=== PATIENT | female | born 1950 | race Caucasian/White ===

== ENCOUNTER 2016-07-06 10:20 | Outpatient (RCR) | payer MEDICARE ==
--- OUTSIDE RECORDS SUMMARY | 2016-05-30 09:17 | XMS REPORT | Continuity of Care Document ---
Author Author [facility] Organization [facility] Address Unknown Phone Unavailable Care Team Providers Care Business Database Analyst Name Role Phone JARRELL COHEN DO PCP Insurance Providers Payer Name Policy Number Subscriber Name Relationship [employer] Gold Choice [id number] Shaji Munoz 18 Self / Same As Patient Advance Directives Directive Response Recorded Date/Time Advance Directives No 06/30/15 4:50pm Health Care Power of Grinder Operator Surface Tool No 06/30/15 4:50pm Organ Donor No 06/30/15 4:50pm Problems Active Problems Medical Problem Onset Date Status Breast cancer, left breast Unknown Acute Medications Current Home Medications Medication Dose Units Route Directions Days/Qty Instructions Start Date Levothyroxine Sodium (Levothroid) 125 Mcg 125 Mcg Oral Daily Omeprazole 20 Mg 20 Mg Oral Bedtime 06/28/15 Hydrocodone/Acetaminophen 1 Each 1 Each Oral Every 4HRS as needed for Pain 30 07/02/15 Past Home Medications Medication Directions Ordered Status Fluticasone/Salmeterol 1 Each Disk.w.dev, 0 Inhalation Twice A Day 12/15/14 Discontinued Social History Social History Problem Response Recorded Date/Time Alcohol Use Denies Use 06/30/2015 4:50pm Recreational Drug Use No 06/30/2015 4:50pm Recent Foreign Travel N [place] 04/13/2016 9:53am Sexually Transmitted Disease No 06/30/2015 4:50pm HIV/AIDS No 06/30/2015 4:50pm Do you dip or chew tobacco? No 06/30/2015 4:50pm Sexually Transmitted Disease No 06/30/2015 4:50pm Hospital Discharge Instructions No hospital discharge instructions. Plan of Care Prescriptions See Medication Section Functional Status No functional status results. Allergies, Adverse Reactions, Alerts No known allergies. Immunizations No immunization records. Vital Signs No known vital signs results. Results Laboratory Results Test Name Result Units Flags Reference Collection Date/Time Result Date/ Time Comments White Blood Count 6.4 10^3/uL 4.3-11.0 04/13/2016 10:00am 04/13/2016 10 :09am Red Blood Count 4.35 10^6/uL 4.35-5.85 04/13/2016 10:00am 04/13/2016 10 :09am Hemoglobin 12.1 G/DL 11.5-16.0 04/13/2016 10:00am 04/13/2016 10:09am Hematocrit 38 % 35-52 04/13/2016 10:00am 04/13/2016 10:09am Mean Corpuscular Volume 88 FL 80-99 04/13/2016 10:00am 04/13/2016 10: 09am Mean Corpuscular Hemoglobin 28 PG 25-34 04/13/2016 10:00am 04/13/2016 10:09am Mean Corpuscular Hemoglobin Concent 32 G/DL 32-36 04/13/2016 10:00am 10:09am Red Cell Distribution Width 14.3 % 10.0-14.5 04/13/2016 10:00am 2015 10:09am Platelet Count 206 10^3/uL 130-400 04/13/2016 10:00am 04/13/2016 10: 09am Mean Platelet Volume 10.4 FL 7.4-10.4 04/13/2016 10:00am 04/13/2016 10: 09am Neutrophils (%) (Auto) 56 % 42-75 04/13/2016 10:00am 04/13/2016 10: 09am Lymphocytes (%) (Auto) 29 % 12-44 04/13/2016 10:00am 04/13/2016 10: 09am Monocytes (%) (Auto) 11 % 0-12 04/13/2016 10:00am 04/13/2016 10:09am Eosinophils (%) (Auto) 3 % 0-10 04/13/2016 10:00am 04/13/2016 10:09am Basophils (%) (Auto) 1 % 0-10 04/13/2016 10:00am 04/13/2016 10:09am Neutrophils # (Auto) 3.5 X 10^3 1.8-7.8 04/13/2016 10:00am 04/13/2016 10:09am Lymphocytes # (Auto) 1.9 X 10^3 1.0-4.0 04/13/2016 10:00am 04/13/2016 10:09am Monocytes # (Auto) 0.7 X 10^3 0.0-1.0 04/13/2016 10:00am 04/13/2016 10: 09am Eosinophils # (Auto) 0.2 10^3/uL 0.0-0.3 04/13/2016 10:00am 04/13/2016 10:09am Basophils # (Auto) 0.0 10^3/uL 0.0-0.1 04/13/2016 10:00am 04/13/2016 10 :09am Sodium Level 142 MMOL/L 135-145 04/13/2016 10:00am 04/13/2016 11:03am Potassium Level 4.5 MMOL/L 3.6-5.0 04/13/2016 10:00am 04/13/2016 11: 03am Chloride Level 105 MMOL/L 98-107 04/13/2016 10:00am 04/13/2016 11:03am Carbon Dioxide Level 29 MMOL/L 21-32 04/13/2016 10:00am 04/13/2016 11: 03am Anion Gap 8 MMOL/L 5-14 04/13/2016 10:00am 04/13/2016 11:03am Blood Urea Nitrogen 14 MG/DL 7-18 04/13/2016 10:00am 04/13/2016 11: 03am Creatinine 0.72 MG/DL 0.60-1.30 04/13/2016 10:00am 04/13/2016 11:03am BUN/Creatinine Ratio 19 04/13/2016 10:00am 04/13/2016 11:03am Estimat Glomerular Filtration Rate > 60 04/13/2016 10:00am 2015 11:03am GFR INTERPRETIVE DATA UNITS FOR ESTIMATED GFR (eGFR): mL/min/1.73 M2 REFERENCE RANGE FOR ESTIMATED GFR (eGFR) eGFR NORMAL eGFR >60 MODERATELY DECREASED eGFR 30-59 SEVERLY DECREASED eGFR 15-29 KIDNEY FAILURE <15 (OR DIALYSIS) Glucose Level 92 MG/DL 70-105 04/13/2016 10:00am 04/13/2016 11:03am Calcium Level 9.0 MG/DL 8.5-10.1 04/13/2016 10:00am 04/13/2016 11:03am Total Bilirubin 0.4 MG/DL 0.1-1.0 04/13/2016 10:00am 04/13/2016 11: 03am Alkaline Phosphatase 69 U/L 40-136 04/13/2016 10:00am 04/13/2016 11: 03am Aspartate Amino Transf (AST/SGOT) 14 U/L 5-34 04/13/2016 10:00am 2015 11:03am Alanine Aminotransferase (ALT/SGPT) 14 U/L 0-55 04/13/2016 10:00am 11:03am Total Protein 6.4 G/DL 6.4-8.2 04/13/2016 10:00am 04/13/2016 11:03am Albumin 3.8 G/DL 3.2-4.5 04/13/2016 10:00am 04/13/2016 11:03am Thyroid Stimulating Hormone (TSH) 1.28 UIU/ML 0.35-4.94 04/13/2016 10: 00am 04/13/2016 11:27am Procedures No known history of procedures. Encounters Encounter Location Arrival/Admit Date Discharge/Depart Date Attending Provider Discharged Recurring [facility] 04/13/16 9:54am 9:10am WILLIAM HICKS
[~2016-07-06 10:20] MED LIST: FLUT1DIS4 IH; HYDR-3454 PO; LEVO125T6 PO; OMEP20CA12 PO
[2016-07-06 10:57] LABS: BASOPHILS % (AUTO) 1 % (0-10); EOSINOPHILS # (AUTO) 0.2 10^3/uL (0.0-0.3); EOSINOPHILS % (AUTO) 2 % (0-10); LYMPHOCYTES # (AUTO) 1.8 X 10^3 (1.0-4.0); LYMPHOCYTES % (AUTO) 25 % (12-44); MEAN CORPUSCULAR HEMOGLOBIN 28 PG (25-34); MEAN CORPUSCULAR HGB CONC 31 G/DL (32-36); MEAN CORPUSCULAR VOLUME 89 FL (80-99); MEAN PLATELET VOLUME 10.2 FL (7.4-10.4); MONOCYTES # (AUTO) 0.6 X 10^3 (0.0-1.0); MONOCYTES % (AUTO) 8 % (0-12); NEUTROPHILS # (AUTO) 4.6 X 10^3 (1.8-7.8); NEUTROPHILS % (AUTO) 64 % (42-75); PLATELET COUNT 228 10^3/uL (130-400); RED BLOOD COUNT 4.34 10^6/uL (4.35-5.85); RED CELL DISTRIBUTION WIDTH 13.9 % (10.0-14.5); WHITE BLOOD COUNT 7.2 10^3/uL (4.3-11.0)
[2016-07-06 11:38] LABS: ALANINE AMINOTRANSFERASE 12 U/L (0-55); ALBUMIN 3.9 G/DL (3.2-4.5); ANION GAP 8 MMOL/L (5-14); ASPARTATE AMINO TRANSFERASE 17 U/L (5-34); BILIRUBIN,TOTAL 0.4 MG/DL (0.1-1.0); BLOOD UREA NITROGEN 14 MG/DL (7-18); BUN/CREATININE RATIO 20; CARBON DIOXIDE 29 MMOL/L (21-32); CHLORIDE 102 MMOL/L (98-107); GFR ESTIMATED > 60; GLUCOSE 107 MG/DL (70-105); POTASSIUM 4.6 MMOL/L (3.6-5.0); SODIUM 139 MMOL/L (135-145); TOTAL PROTEIN 6.5 G/DL (6.4-8.2)
[2016-07-06 12:01] LABS: THYROID STIMULATING HORMONE 1.47 UIU/ML (0.35-4.94)
== END 2016-08-28 | disposition home or self-care (01) ==
LOC: ONC 10:20
PROVIDERS: ATTEND Internal Medicine Hematology & Oncology
DX: C50.512 Malignant neoplasm of lower-outer quadrant of left female breast (principal); E03.9 Hypothyroidism, unspecified; Z90.12 Acquired absence of left breast and nipple; Z92.21 Personal history of antineoplastic chemotherapy; Z79.899 Other long term (current) drug therapy; Z45.2 Encounter for adjustment and management of vascular access device
CPT/HCPCS: 80053; 84443; 85025; 96523

== ENCOUNTER 2016-11-10 09:39 | Outpatient (RCR) | payer MEDICARE ==
--- OUTSIDE RECORDS SUMMARY | 2016-08-29 09:21 | XMS REPORT | Continuity of Care Document ---
Author Author [facility] Organization [facility] Address Unknown Phone Unavailable Care Team Providers Care Wellness Spa Manager Name Role Phone JARRELL COHEN DO PCP Insurance Providers Payer Name Policy Number Subscriber Name Relationship [employer] Gold Choice [id number] Shaji Munoz 18 Self / Same As Patient Advance Directives Directive Response Recorded Date/Time Advance Directives No 06/30/15 4:50pm Health Care Power of Bin Cleaner No 06/30/15 4:50pm Organ Donor No 06/30/15 [...] Discharge/Depart Date Attending Provider Discharged Recurring [facility] 04/13/16 9:54am 9:10am WILLIAM HICKS
[2016-09-28 09:33] LABS: BASOPHILS % (AUTO) 1 % (0-10); EOSINOPHILS # (AUTO) 0.2 10^3/uL (0.0-0.3); EOSINOPHILS % (AUTO) 3 % (0-10); LYMPHOCYTES # (AUTO) 1.9 X 10^3 (1.0-4.0); LYMPHOCYTES % (AUTO) 26 % (12-44); MEAN CORPUSCULAR HEMOGLOBIN 27 PG (25-34); MEAN CORPUSCULAR HGB CONC 31 G/DL (32-36); MEAN CORPUSCULAR VOLUME 87 FL (80-99); MEAN PLATELET VOLUME 10.2 FL (7.4-10.4); MONOCYTES # (AUTO) 0.6 X 10^3 (0.0-1.0); MONOCYTES % (AUTO) 9 % (0-12); NEUTROPHILS # (AUTO) 4.6 X 10^3 (1.8-7.8); NEUTROPHILS % (AUTO) 62 % (42-75); PLATELET COUNT 216 10^3/uL (130-400); RED BLOOD COUNT 4.61 10^6/uL (4.35-5.85); RED CELL DISTRIBUTION WIDTH 13.9 % (10.0-14.5); WHITE BLOOD COUNT 7.3 10^3/uL (4.3-11.0)
[2016-09-28 10:09] LABS: ALANINE AMINOTRANSFERASE 12 U/L (0-55); ALBUMIN 3.8 G/DL (3.2-4.5); ANION GAP 11 MMOL/L (5-14); ASPARTATE AMINO TRANSFERASE 14 U/L (5-34); BILIRUBIN,TOTAL 0.4 MG/DL (0.1-1.0); BLOOD UREA NITROGEN 10 MG/DL (7-18); BUN/CREATININE RATIO 13; CALCIUM 9.2 MG/DL (8.5-10.1); CARBON DIOXIDE 29 MMOL/L (21-32); CHLORIDE 101 MMOL/L (98-107); CREATININE SERUM 0.77 MG/DL (0.60-1.30); GFR ESTIMATED > 60; GLUCOSE 139 MG/DL (70-105); POTASSIUM 4.4 MMOL/L (3.6-5.0); SODIUM 141 MMOL/L (135-145); TOTAL PROTEIN 6.8 G/DL (6.4-8.2)
[2016-09-28 10:33] LABS: THYROID STIMULATING HORMONE 2.11 UIU/ML (0.35-4.94)
== END 2016-11-27 | disposition home or self-care (01) ==
LOC: ONC 09:39
PROVIDERS: ATTEND Internal Medicine Hematology & Oncology
DX: C50.512 Malignant neoplasm of lower-outer quadrant of left female breast (principal); E03.9 Hypothyroidism, unspecified; Z90.12 Acquired absence of left breast and nipple; Z92.21 Personal history of antineoplastic chemotherapy; Z79.899 Other long term (current) drug therapy; Z45.2 Encounter for adjustment and management of vascular access device
CPT/HCPCS: 36591; 80053; 84443; 85025; 96523; 99213

== ENCOUNTER → 2016-11-10 | Outpatient (CLI) | payer MEDICARE ==
--- NOTE | 2016-11-10 10:56 | Diagnostic Imaging Report ---
Right breast diagnostic mammogram. The current study was also evaluated with a Computer Aided Detection (CAD) system. COMPARISON: 11/09/2015. INDICATION: The patient has history of breast cancer, status post left mastectomy. No current complaints. FINDINGS: Heterogeneously dense parenchyma is seen in the right breast with benign-appearing and vascular calcifications seen. No developing mass or suspicious cluster of calcification. Allowing for technique and positional differences, no suspicious change is seen. IMPRESSION: No significant change. ACR BI-RADS Category 2: Benign findings. Result letter will be mailed to the patient. Note: At least 10% of breast cancer is not imaged by mammography. Dictated by: Dictated on workstation # [id number]
== END ==
LOC: RAD 08:57
PROVIDERS: ATTEND Internal Medicine Hematology & Oncology
DX: Z85.3 Personal history of malignant neoplasm of breast (principal); Z90.12 Acquired absence of left breast and nipple
CPT/HCPCS: 76641

== ENCOUNTER 2017-03-14 09:52 | Outpatient (RCR) | payer MEDICARE ==
[2016-12-19 10:33] LABS: BASOPHILS % (AUTO) 1 % (0-10); EOSINOPHILS # (AUTO) 0.2 10^3/uL (0.0-0.3); EOSINOPHILS % (AUTO) 3 % (0-10); LYMPHOCYTES # (AUTO) 1.6 X 10^3 (1.0-4.0); LYMPHOCYTES % (AUTO) 24 % (12-44); MEAN CORPUSCULAR HEMOGLOBIN 27 PG (25-34); MEAN CORPUSCULAR HGB CONC 31 G/DL (32-36); MEAN CORPUSCULAR VOLUME 87 FL (80-99); MEAN PLATELET VOLUME 9.9 FL (7.4-10.4); MONOCYTES # (AUTO) 0.7 X 10^3 (0.0-1.0); MONOCYTES % (AUTO) 10 % (0-12); NEUTROPHILS # (AUTO) 4.4 X 10^3 (1.8-7.8); NEUTROPHILS % (AUTO) 63 % (42-75); PLATELET COUNT 247 10^3/uL (130-400); RED BLOOD COUNT 4.44 10^6/uL (4.35-5.85); RED CELL DISTRIBUTION WIDTH 14.1 % (10.0-14.5)
[2016-12-19 11:18] LABS: ALANINE AMINOTRANSFERASE 10 U/L (0-55); ALBUMIN 3.8 G/DL (3.2-4.5); ANION GAP 10 MMOL/L (5-14); ASPARTATE AMINO TRANSFERASE 16 U/L (5-34); BILIRUBIN,TOTAL 0.4 MG/DL (0.1-1.0); BLOOD UREA NITROGEN 12 MG/DL (7-18); BUN/CREATININE RATIO 16; CALCIUM 9.2 MG/DL (8.5-10.1); CARBON DIOXIDE 27 MMOL/L (21-32); CHLORIDE 104 MMOL/L (98-107); CREATININE SERUM 0.75 MG/DL (0.60-1.30); GFR ESTIMATED > 60; GLUCOSE 109 MG/DL (70-105); POTASSIUM 4.1 MMOL/L (3.6-5.0); SODIUM 141 MMOL/L (135-145)
[2016-12-19 11:37] LABS: THYROID STIMULATING HORMONE 1.41 UIU/ML (0.35-4.94)
[2017-03-14 10:07] LABS: BASOPHILS # (AUTO) 0.1 10^3/uL (0.0-0.1); BASOPHILS % (AUTO) 1 % (0-10); EOSINOPHILS # (AUTO) 0.3 10^3/uL (0.0-0.3); EOSINOPHILS % (AUTO) 4 % (0-10); LYMPHOCYTES # (AUTO) 2.2 X 10^3 (1.0-4.0); LYMPHOCYTES % (AUTO) 28 % (12-44); MEAN CORPUSCULAR HEMOGLOBIN 27 PG (25-34); MEAN CORPUSCULAR HGB CONC 31 G/DL (32-36); MEAN CORPUSCULAR VOLUME 86 FL (80-99); MEAN PLATELET VOLUME 10.1 FL (7.4-10.4); MONOCYTES # (AUTO) 0.7 X 10^3 (0.0-1.0); MONOCYTES % (AUTO) 10 % (0-12); NEUTROPHILS # (AUTO) 4.3 X 10^3 (1.8-7.8); NEUTROPHILS % (AUTO) 57 % (42-75); PLATELET COUNT 257 10^3/uL (130-400); RED BLOOD COUNT 4.52 10^6/uL (4.35-5.85); RED CELL DISTRIBUTION WIDTH 14.3 % (10.0-14.5); WHITE BLOOD COUNT 7.6 10^3/uL (4.3-11.0)
[2017-03-14 10:54] LABS: ALANINE AMINOTRANSFERASE 10 U/L (0-55); ALBUMIN 3.8 GM/DL (3.2-4.5); ANION GAP 11 MMOL/L (5-14); ASPARTATE AMINO TRANSFERASE 14 U/L (5-34); BILIRUBIN,TOTAL 0.5 MG/DL (0.1-1.0); BLOOD UREA NITROGEN 13 MG/DL (7-18); BUN/CREATININE RATIO 18; CALCIUM 9.4 MG/DL (8.5-10.1); CARBON DIOXIDE 26 MMOL/L (21-32); CHLORIDE 104 MMOL/L (98-107); CREATININE SERUM 0.73 MG/DL (0.60-1.30); GFR ESTIMATED > 60; GLUCOSE 123 MG/DL (70-105); POTASSIUM 4.2 MMOL/L (3.6-5.0); SODIUM 141 MMOL/L (135-145)
== END 2017-03-19 | disposition home or self-care (01) ==
LOC: ONC 09:52
PROVIDERS: ATTEND Internal Medicine Hematology & Oncology
DX: C50.512 Malignant neoplasm of lower-outer quadrant of left female breast (principal); E03.9 Hypothyroidism, unspecified; Z90.12 Acquired absence of left breast and nipple; Z92.21 Personal history of antineoplastic chemotherapy; Z79.899 Other long term (current) drug therapy
CPT/HCPCS: 36591; 80053; 84443; 85025; 96523; 99213

== ENCOUNTER → 2017-03-23 | Outpatient (CLI) | payer MEDICARE ==
[~2017-03-23] MED LIST changes: +BARIUM SUSPENSION 2.1% (VANILLA SILQ) 450 ML PO ONE; +CATHETER FLUSH 10 ML SYR IV PRN; +IOHEXOL 350 MG/ML 100 ML (OMNIPAQUE 350) VIAL IV ONE; +NS 100 ML (IVPB) BAG IV ONE
--- NOTE | 2017-03-23 14:38 | Diagnostic Imaging Report ---
PROCEDURE: CT chest and abdomen with contrast. TECHNIQUE: Multiple contiguous axial images were obtained through the chest and abdomen after the administration of intravenous contrast. INDICATION: History of left breast cancer. COMPARISON: Comparison limited to CT fusion PET performed 12/15/2014. FINDINGS: CHEST: Since the previous exam, there has been interval left mastectomy. A small 7.4 mm ovoid nodule in the left axilla appears unchanged from prior when it was not metabolically active. No mass or fluid collection along the postoperative chest wall. No retropectoral adenopathy. No pathological appearing right-sided axillary lymph nodes or changes found. No dominant or suspicious lung mass. There is no hilar or mediastinal lymphadenopathy. No thoracic effusion. No abnormal tissue along the course of the internal mammaries. The vertebral body endplate or disc sclerosis at the mid thoracic spine is stable from prior when it was not metabolically active. No acute or destructive osseous pathology. ABDOMEN: Liver, gallbladder, and bile ducts are unremarkable. Pancreas and adrenals are negative. The splenic cyst is stable and benign. There is no mesenteric or retroperitoneal lymphadenopathy. There is profound atherosclerotic disease involving the abdominal aorta and its distal one-third where there appears to be severe mixed soft and hard plaque and no convincing intraluminal opacification through its bifurcation. At the most caudal cut of the exam, there is at least some reconstitution with intraluminal flow within the visualized distal common iliacs; the right likely hemodynamically significantly stenosed. There is opacification of the celiac and superior mesenteric arteries as well as the good caliber inferior mesenteric. No acute or destructive osseous lesion. IMPRESSION: CHEST: No findings to suggest thoracic involvement by metastatic disease or acute appearing abnormality. Interval postoperative changes. ABDOMEN: No findings of metastatic disease, obstructive features, third space fluids, or lymphadenopathy. Profound aortic atherosclerosis with occlusion or subtotal occlusion of the distal third of the aorta through its bifurcation. At the most caudal cut of the exam, there is at least some reconstitution of flow within the left greater than right common iliacs. Correlate for symptoms of peripheral vascular disease; lower extremity arterial Doppler and ultrasound also would be of benefit. Assuming the absence of any acute clinical change, this would likely be chronic; however, prior PET is a noncontrast-enhanced exam, and at this facility, there are no previous studies to confirm or refute stability of this finding. Dictated by: Dictated on workstation # [id number]
--- NOTE | 2017-03-23 18:45 | Diagnostic Imaging Report ---
INDICATION: Fall. Back and bilateral hip pain. TECHNIQUE: 25.6 mCi Technetium 99m MDP utilized. FINDINGS: There is good uptake throughout the skeletal system. There is focal area of increased uptake over the sacrococcygeal region. There is also increased uptake within the knees bilaterally more prominent in the medial aspect of the right knee. IMPRESSION: 1. Findings are suggestive of fracture of the sacrococcygeal region. Would consider CT scan of the pelvis for further evaluation. 2. Activity within the knees consistent with degenerative arthritic changes. Dictated by: Dictated on workstation # [id number]
== END ==
LOC: CARD 10:15
PROVIDERS: ATTEND Nurse Practitioner Adult Health
DX: C50.512 Malignant neoplasm of lower-outer quadrant of left female breast (principal); I70.0 Atherosclerosis of aorta
CPT/HCPCS: 71260; 74160; 78306

== ENCOUNTER 2017-06-04 08:38 | Outpatient (RCR) | payer MEDICARE ==
[~2017-06-04 08:38] MED LIST changes: -BARIUM SUSPENSION 2.1% (VANILLA SILQ) 450 ML PO ONE; -CATHETER FLUSH 10 ML SYR IV PRN; -IOHEXOL 350 MG/ML 100 ML (OMNIPAQUE 350) VIAL IV ONE; -NS 100 ML (IVPB) BAG IV ONE
[2017-06-04 09:02] LABS: BASOPHILS % (AUTO) 1 % (0-10); EOSINOPHILS # (AUTO) 0.2 10^3/uL (0.0-0.3); EOSINOPHILS % (AUTO) 2 % (0-10); HEMATOCRIT 41 % (35-52); HEMOGLOBIN 12.9 G/DL (11.5-16.0); LYMPHOCYTES % (AUTO) 24 % (12-44); MEAN CORPUSCULAR HEMOGLOBIN 27 PG (25-34); MEAN CORPUSCULAR HGB CONC 31 G/DL (32-36); MEAN CORPUSCULAR VOLUME 88 FL (80-99); MEAN PLATELET VOLUME 10.2 FL (7.4-10.4); MONOCYTES # (AUTO) 0.6 X 10^3 (0.0-1.0); MONOCYTES % (AUTO) 7 % (0-12); NEUTROPHILS # (AUTO) 5.8 X 10^3 (1.8-7.8); NEUTROPHILS % (AUTO) 67 % (42-75); PLATELET COUNT 238 10^3/uL (130-400); RED BLOOD COUNT 4.73 10^6/uL (4.35-5.85); RED CELL DISTRIBUTION WIDTH 14.2 % (10.0-14.5); WHITE BLOOD COUNT 8.6 10^3/uL (4.3-11.0)
[2017-06-04 09:18] LABS: ALANINE AMINOTRANSFERASE 12 U/L (0-55); ALBUMIN 3.8 GM/DL (3.2-4.5); ALKALINE PHOSPHATASE 86 U/L (40-136); BILIRUBIN,TOTAL 0.3 MG/DL (0.1-1.0); BUN/CREATININE RATIO 19; CALCIUM 9.3 MG/DL (8.5-10.1); CARBON DIOXIDE 28 MMOL/L (21-32); CHLORIDE 100 MMOL/L (98-107); GFR ESTIMATED > 60; GLUCOSE 149 MG/DL (70-105); POTASSIUM 4.1 MMOL/L (3.6-5.0); SODIUM 139 MMOL/L (135-145); TOTAL PROTEIN 7.1 GM/DL (6.4-8.2)
== END 2017-09-02 | disposition home or self-care (01) ==
LOC: ONC 08:38
PROVIDERS: ATTEND Internal Medicine Hematology & Oncology
DX: C50.512 Malignant neoplasm of lower-outer quadrant of left female breast (principal); E03.9 Hypothyroidism, unspecified; Z90.12 Acquired absence of left breast and nipple; Z92.21 Personal history of antineoplastic chemotherapy; Z79.899 Other long term (current) drug therapy
CPT/HCPCS: 80053; 84443; 85025; 99213

== ENCOUNTER 2017-12-04 08:58 | Outpatient (RCR) | payer MEDICARE ==
[2017-12-04 09:18] LABS: BASOPHILS # (AUTO) 0.1 10^3/uL (0.0-0.1); BASOPHILS % (AUTO) 1 % (0-10); EOSINOPHILS # (AUTO) 0.2 10^3/uL (0.0-0.3); EOSINOPHILS % (AUTO) 2 % (0-10); HEMATOCRIT 41 % (35-52); HEMOGLOBIN 12.8 G/DL (11.5-16.0); LYMPHOCYTES # (AUTO) 2.3 X 10^3 (1.0-4.0); LYMPHOCYTES % (AUTO) 29 % (12-44); MEAN CORPUSCULAR HEMOGLOBIN 28 PG (25-34); MEAN CORPUSCULAR HGB CONC 31 G/DL (32-36); MEAN CORPUSCULAR VOLUME 88 FL (80-99); MEAN PLATELET VOLUME 10.2 FL (7.4-10.4); MONOCYTES # (AUTO) 0.8 X 10^3 (0.0-1.0); MONOCYTES % (AUTO) 10 % (0-12); NEUTROPHILS # (AUTO) 4.7 X 10^3 (1.8-7.8); NEUTROPHILS % (AUTO) 59 % (42-75); PLATELET COUNT 241 10^3/uL (130-400); RED BLOOD COUNT 4.62 10^6/uL (4.35-5.85); RED CELL DISTRIBUTION WIDTH 13.9 % (10.0-14.5); WHITE BLOOD COUNT 7.9 10^3/uL (4.3-11.0)
[2017-12-04 09:39] LABS: ALANINE AMINOTRANSFERASE 12 U/L (0-55); ALBUMIN 3.9 GM/DL (3.2-4.5); ALKALINE PHOSPHATASE 71 U/L (40-136); BILIRUBIN,TOTAL 0.5 MG/DL (0.1-1.0); BUN/CREATININE RATIO 17; CALCIUM 9.4 MG/DL (8.5-10.1); CARBON DIOXIDE 28 MMOL/L (21-32); CHLORIDE 102 MMOL/L (98-107); CREATININE SERUM 0.78 MG/DL (0.60-1.30); GFR ESTIMATED > 60; GLUCOSE 112 MG/DL (70-105); POTASSIUM 4.9 MMOL/L (3.6-5.0); SODIUM 140 MMOL/L (135-145); TOTAL PROTEIN 6.9 GM/DL (6.4-8.2)
== END 2018-03-04 | disposition home or self-care (01) ==
LOC: ONC 08:58
PROVIDERS: ATTEND Internal Medicine Hematology & Oncology
DX: C50.512 Malignant neoplasm of lower-outer quadrant of left female breast (principal); E03.9 Hypothyroidism, unspecified; Z90.12 Acquired absence of left breast and nipple; Z92.21 Personal history of antineoplastic chemotherapy; Z79.899 Other long term (current) drug therapy
CPT/HCPCS: 36415; 80053; 84443; 85025; 99213

== ENCOUNTER → 2017-12-07 | Outpatient (CLI) | payer MEDICARE ==
--- NOTE | 2017-12-07 19:45 | Diagnostic Imaging Report ---
INDICATION: Routine screening. COMPARISON: Comparison is made with prior exam from 11/10/2016 and 11/09/2015. TECHNIQUE: 2D and 3D unilateral right screening mammography was performed with computer-aided detection (CAD) system. FINDINGS: Scattered fibroglandular densities in the right breast are identified. The parenchymal pattern appears stable. No discrete mass or malignant appearing microcalcifications are seen. The right axilla is unremarkable. IMPRESSION: No mammographic features suspicious for malignancy are identified. ACR BI-RADS Category 1: Negative. Result letter will be mailed to the patient. Note: At least 10% of breast cancer is not imaged by mammography. Dictated by: Dictated on workstation # [id number]
== END ==
LOC: RAD 08:02
PROVIDERS: ATTEND Nurse Practitioner Adult Health
DX: Z12.31 Encounter for screening mammogram for malignant neoplasm of breast (principal); Z90.12 Acquired absence of left breast and nipple; Z85.3 Personal history of malignant neoplasm of breast

== ENCOUNTER 2018-05-28 09:44 | Outpatient (RCR) | payer MEDICARE ==
[2018-05-28 10:13] LABS: BASOPHILS % (AUTO) 1 % (0-10); EOSINOPHILS # (AUTO) 0.2 10^3/uL (0.0-0.3); EOSINOPHILS % (AUTO) 2 % (0-10); HEMATOCRIT 42 % (35-52); HEMOGLOBIN 12.8 G/DL (11.5-16.0); LYMPHOCYTES # (AUTO) 2.1 X 10^3 (1.0-4.0); LYMPHOCYTES % (AUTO) 28 % (12-44); MEAN CORPUSCULAR HEMOGLOBIN 27 PG (25-34); MEAN CORPUSCULAR HGB CONC 31 G/DL (32-36); MEAN CORPUSCULAR VOLUME 89 FL (80-99); MEAN PLATELET VOLUME 10.8 FL (7.4-10.4); MONOCYTES # (AUTO) 0.7 X 10^3 (0.0-1.0); MONOCYTES % (AUTO) 9 % (0-12); NEUTROPHILS # (AUTO) 4.5 X 10^3 (1.8-7.8); NEUTROPHILS % (AUTO) 61 % (42-75); PLATELET COUNT 198 10^3/uL (130-400); RED CELL DISTRIBUTION WIDTH 14.6 % (10.0-14.5); WHITE BLOOD COUNT 7.4 10^3/uL (4.3-11.0)
[2018-05-28 10:35] LABS: ALANINE AMINOTRANSFERASE 15 U/L (0-55); ALBUMIN 4.1 GM/DL (3.2-4.5); ALKALINE PHOSPHATASE 64 U/L (40-136); BILIRUBIN,TOTAL 0.4 MG/DL (0.1-1.0); BUN/CREATININE RATIO 15; CALCIUM 9.7 MG/DL (8.5-10.1); CARBON DIOXIDE 23 MMOL/L (21-32); CHLORIDE 102 MMOL/L (98-107); CREATININE SERUM 0.78 MG/DL (0.60-1.30); GFR ESTIMATED > 60; GLUCOSE 126 MG/DL (70-105); POTASSIUM 4.7 MMOL/L (3.6-5.0); SODIUM 139 MMOL/L (135-145); TOTAL PROTEIN 7.2 GM/DL (6.4-8.2)
== END 2018-08-26 | disposition home or self-care (01) ==
LOC: ONC 09:44
PROVIDERS: ATTEND Internal Medicine Hematology & Oncology
DX: C50.512 Malignant neoplasm of lower-outer quadrant of left female breast (principal); E03.9 Hypothyroidism, unspecified; Z90.12 Acquired absence of left breast and nipple; Z92.21 Personal history of antineoplastic chemotherapy; Z79.899 Other long term (current) drug therapy
CPT/HCPCS: 36415; 80053; 84443; 85025; 99213

== ENCOUNTER → 2018-12-09 | Outpatient (CLI) | payer MEDICARE ==
[~2018-12-09] MED LIST changes: -HYDR-3454 PO; +HYDR-3455 PO
--- NOTE | 2018-12-09 11:20 | Diagnostic Imaging Report ---
Indication: Routine screening. Comparison is made with prior mammogram from 12/07/2017 and 11/10/2016. Unilateral right 2-D and 3-D screening mammography was performed with CAD. Scattered fibroglandular densities are identified in the right breast. There has been interval development of an area of increased density and apparent architectural distortion in the upper and outer aspect of the right breast posterior depth. This appears more prominent than prior exams. Developing mass cannot be entirely excluded. No suspicious calcifications are seen. Right axilla is unremarkable. Impression: BI-RADS 0 Increased density and possible architectural distortion developing in the upper outer right breast at posterior depth. Further evaluation with additional views and ultrasound is recommended. Dictated by: Dictated on workstation # [id number]
== END ==
LOC: RAD 09:31
PROVIDERS: ATTEND Nurse Practitioner Adult Health
DX: Z12.31 Encounter for screening mammogram for malignant neoplasm of breast (principal); C50.512 Malignant neoplasm of lower-outer quadrant of left female breast

== ENCOUNTER → 2018-12-13 | Outpatient (CLI) | payer MEDICARE ==
--- NOTE | 2018-12-13 17:57 | Diagnostic Imaging Report ---
INDICATION: Right breast density. Patient presents for additional views. COMPARISON: Correlation is made with recent screening study from 12/09/2018. TECHNIQUE: Unilateral right 2D and 3D diagnostic mammography was performed including spot compression CC and ML as well as conventional and 90 degree lateral views. The current study was also evaluated with a Computer Aided Detection (CAD) system. FINDINGS: Additional views show a persistent spiculation and architectural distortion as well as increased density in the upper-outer right breast at posterior depth. This is concerning for neoplasm. Further evaluation with ultrasound is recommended. No suspicious calcifications are seen. IMPRESSION: Spiculation and architectural distortion in the upper-outer right breast posteriorly. Further evaluation with ultrasound is recommended and will be performed today. ACR BI-RADS Category 0: Incomplete. (Needs additional imaging evaluation). Result letter will be mailed to the patient. Note: At least 10% of breast cancer is not imaged by mammography. Dictated by: Dictated on workstation # [id number]
--- NOTE | 2018-12-13 17:57 | Diagnostic Imaging Report ---
INDICATION: Right breast density. This study is performed for further evaluation. Correlation is made with diagnostic mammogram earlier the same day. FINDINGS: Sonographic interrogation of the upper-outer right breast was performed. There is an area of irregular hypoechogenicity and shadowing at the 9 o'clock location of the right breast. This measures approximately 1.2 x 0.7 x 1.9 cm. This may represent the area of irregular density noted mammographically. This is concerning for breast neoplasm. No other abnormalities are seen. IMPRESSION: Irregular region of hypoechogenicity at the 9 o'clock location right breast, likely accounting for the mammographic density. This is concerning for breast neoplasm. Tissue sampling is recommended. This would likely be amenable to ultrasound-guided core biopsy. ACR BI-RADS Category 4: Suspicious abnormality. Dictated by: Dictated on workstation # [id number]
== END ==
LOC: RAD 12:56
PROVIDERS: ATTEND Nurse Practitioner Adult Health
DX: N64.89 Other specified disorders of breast (principal); R92.2 Inconclusive mammogram

== ENCOUNTER → 2018-12-25 | Outpatient (CLI) | payer MEDICARE ==
[~2018-12-25] VITALS: Ht 175.3 cm; Wt 97.5 kg
[~2018-12-25] MED LIST changes: +LIDOCAINE 1% INJ 20 ML 20 ML VIAL INJ ONE; +LIDOCAINE 1% INJ 20 ML 20 ML VIAL ONE
--- NOTE | 2018-12-25 12:43 | Diagnostic Imaging Report ---
INDICATION: Right breast mass. Patient is status post ultrasound-guided right breast biopsy. FINDINGS: 2D CC and ML mammography was performed post biopsy. A biopsy clip is noted along the posterior margin of the spiculated mass in the upper outer right breast. IMPRESSION: Status post biopsy of the spiculated mass in the upper outer right breast. Dictated by: Dictated on workstation # [id number]
--- NOTE | 2018-12-25 12:45 | Diagnostic Imaging Report ---
INDICATION: Right breast mass. Patient presents for biopsy. TECHNIQUE: The patient was brought to the procedure room and placed on the bed in the supine position. Ultrasound imaging over the right breast was performed to evaluate for an appropriate entry site. The right breast was then prepped and draped in the usual sterile fashion. A small amount of 1% lidocaine was utilized for local anesthesia. A 14-gauge Achieve needle was advanced and placed with its tip at the margin of the irregular hypoechoic mass at the 9 o'clock location of the right breast 2 cm from the nipple. A total of three core biopsies was obtained. A marker clip was then deployed. Hemostasis was obtained using manual compression. The patient tolerated the procedure well and was sent for a post procedure mammogram in satisfactory condition. IMPRESSION: Successful ultrasound guided core biopsy of the irregular hypoechoic mass at the 9 o'clock location of the right breast 2 cm from the nipple. The pathologic results are currently pending. Dictated by: Dictated on workstation # [id number]
== END ==
LOC: RAD 10:36
PROVIDERS: ATTEND Nurse Practitioner Adult Health
DX: C50.911 Malignant neoplasm of unspecified site of right female breast (principal); Z85.3 Personal history of malignant neoplasm of breast
CPT/HCPCS: 19083

== ENCOUNTER 2019-01-06 11:29 | Outpatient (CLI) | payer MEDICARE ==
[~2019-01-06] VITALS: Ht 175.3 cm; Wt 97.7 kg
[~2019-01-06 11:29] MED LIST changes: -LIDOCAINE 1% INJ 20 ML 20 ML VIAL INJ ONE; -LIDOCAINE 1% INJ 20 ML 20 ML VIAL ONE
[2019-01-06] MEDS ORDERED: LEVO125T6 PO (11:43)
[2019-01-06] MEDS ORDERED: FISH1CAP15 PO (11:43)
[2019-01-06 11:48] VITALS: BP 137/66
== END 2019-01-06 12:36 | disposition home or self-care (01) ==
LOC: PREOP 11:29
PROVIDERS: ATTEND Surgery
DX: Z01.818 Encounter for other preprocedural examination (principal)
CPT/HCPCS: 87081

== ENCOUNTER 2019-01-15 06:02 | Day surgery (SDC) | payer MEDICARE ==
[2019-01-15] VITALS (11 sets, daily range): BP systolic 95–146; BP diastolic 44–95
[~2019-01-15] VITALS: Ht 175.3 cm; Wt 97.7 kg
[~2019-01-15 06:02] MED LIST changes: +FISH1CAP15 PO
[2019-01-15] MEDS ORDERED: ceFAZolin 2 GM/50 ML NS 50 ML IV ONE (06:15)
[2019-01-15] MEDS: LACTATED RINGERS 1,000 ML IV PRN ×2 (07:03→10:30)
--- NOTE | 2019-01-15 07:07 | NUR ---
PT TO RADIOLOGY AT THIS TIME WITH HAT CLEANER.
--- NOTE | 2019-01-15 07:28 | NUR ---
PT RETURNED FROM RADIOLOGY, BROUGHT BY TECH. PHILLIPS, SITTING COMFORTABLY IN BED, STATES SHE HAS NO QUESTIONS OR REQUESTS AT THIS TIME.
--- NOTE | 2019-01-15 07:52 | Progress Note-Pre Operative ---
Pre-Operative Progress Note H&P Reviewed The H&P was reviewed, patient examined and no changes noted. Time Seen by Provider: 07:48 Date H&P Reviewed: Jan 15, 2019 Time H&P Reviewed: 07:49 Pre-Operative Diagnosis: Right breast CA MARIKA WILL DO Jan 15, 2019 07:52
[2019-01-15] MEDS ORDERED: METHYLENE BLUE 0.5% (PROVAYBLUE) 50 mg/10 ml vial IV ONE (08:47)
[2019-01-15] MEDS ORDERED: BUP/EPI 0.5% 1:200,000 (SENSORCAINE) 30 ML VIAL ONE (08:47)
[2019-01-15] MEDS ORDERED: LIDOCAINE 1% INJ 20 ML 20 ML VIAL ONE (08:47)
[2019-01-15] MEDS ORDERED: SUCCINYLCHOLINE INJ 100 MG/5 ML SYR ONE (08:50)
[2019-01-15] MEDS ORDERED: DEXAMETHASONE 10 MG/ML (DECADRON) 1 ML VIAL ONE (08:50)
[2019-01-15] MEDS ORDERED: proPOfol 200 MG/20 ML (DIPRIVAN) VIAL IV ONE (08:50)
[2019-01-15] MEDS ORDERED: LIDOCAINE PF 2% 5 ML (XYLOCAINE) VIAL ONE (08:50)
[2019-01-15] MEDS ORDERED: ONDANSETRON 4 MG/2 ML (SDV) Z0FRAN ONE (08:50)
[2019-01-15] MEDS ORDERED: ROCURONIUM 10 MG/ML 5 ML SYRINGE IV ONE (08:50)
[2019-01-15] MEDS ORDERED: MIDAZOLAM 2 MG/2 ML (VERSED) VIAL ONE (08:51)
[2019-01-15] MEDS ORDERED: fentaNYL INJECTION 100 MCG/2 ML AMP ONE ×2 (08:51→10:16)
[2019-01-15] MEDS ORDERED: SEVOFLURANE (ULTANE) 15 ML INHAL SOLN ONE ×3 (09:22→10:49)
[2019-01-15] MEDS ORDERED: GLYCOPYRROLATE 0.2 MG/ML (ROBINUL) 2 ML VIAL ONE (10:45)
[2019-01-15] MEDS ORDERED: NEOSTIGMINE 1 MG/ML 5 ML SYRINGE ONE (10:45)
[2019-01-15] MEDS ORDERED: morphine INJ 10 MG/ML 1ML (SYR OR VIAL) ONE (11:45)
--- NOTE | 2019-01-15 11:50 | Progress Note-Post Operative ---
Post-Operative Progess Note Surgeon (s)/Crystallography Teacher (s) Surgeon MARIKA WILL DO Crystallography Teacher: Veronique Pre-Operative Diagnosis Right breast CA Post-Operative Diagnosis same pending path Procedure & Operative Findings Date of Procedure 01/15/19 Procedure Performed/Findings R MRM with sentinel LN biopsy Anesthesia Type GET Estimated Blood Loss Estimated blood loss (mL): less than 30ml Specimens/Packing Specimens Removed R breast MRM sentinel LN x 2 MARIKA WILL DO Jan 15, 2019 11:49
[2019-01-15] MEDS ORDERED: HYDROcodone/APAP 5 MG/325 MG (LORTAB) TAB PO PRN (12:00)
[2019-01-15] MEDS ORDERED: morphine INJ 10 MG/ML 1ML (SYR OR VIAL) IVP ONE (13:15)
--- NOTE | 2019-01-15 14:57 | Anesthesia-General Post-Op ---
General Patient Condition Mental Status/LOC: Same as Preop Cardiovascular: Satisfactory Nausea/Vomiting: Absent Respiratory: Satisfactory Pain: Controlled Complications: Absent Post Op Complications Complications None Follow Up Care/Instructions Patient Instructions None needed. Anesthesia/Patient Condition Patient Condition Patient is doing well, no complaints, stable vital signs, no apparent adverse anesthesia problems. No complications reported per nursing. ELVIA DE PAZ CRNA Jan 15, 2019 14:57
[2019-01-15] MEDS: LACTATED RINGERS 1,000 ML IV SCH ×2 (15:18→19:51)
[2019-01-15] MEDS: ceFAZolin 2 GM IV Premixed 50 ML IV SCH (16:53)
--- NOTE | 2019-01-15 20:18 | OPERATIVE REPORT ---
DATE OF SERVICE: PREOPERATIVE DIAGNOSIS: Right breast cancer. POSTOPERATIVE DIAGNOSIS: Right breast cancer. PROCEDURE: Right modified radical mastectomy with sentinel node biopsy. SURGEON: Kelvin Dempsey DO CORE MACHINE OPERATOR: Kodi Piper DO. ANESTHESIA: General endotracheal tube. SPECIMEN: 1. Right breast with skin, modified radical mastectomy. 2. [place] lymph node x2. BLOOD LOSS: Less than 30 mL. FLUIDS: Per anesthesia. POSTOPERATIVE CONDITION: Stable. INDICATION FOR PROCEDURE: The patient is a 69-year-old female who unfortunately recently had abnormal mammogram and a biopsy showed cancer. The patient wanted a mastectomy because she has a left-sided mastectomy. FINDINGS: The patient had a right modified radical mastectomy. She had preoperative injection of radioactive material by radiology, initial on the skin showed a count of 2811 at the injection site and then 305 in the axilla, then In vivo the first sentinel node was 832, ex-vivo 2836. Second sentinel node In vivo 281, ex-vivo 383. PROCEDURE NOTE: After informed consent was obtained, the patient first sent to radiology to have radioactive material injected and then had a nuclear medicine scan, one lymph node showed up. She was then brought down to the operating room, placed on the table in supine position, injected methylene blue at 3, 6, 9, and 12 o'clock position just around the nipple areolar area injected subcuticularly and then massaged this for 5 minutes. Once this was done, then she was sterilely prepped and draped in normal fashion, got a count on the injection site was 2811 and then put the probe on the axilla, got a 305 count. Then, started doing the modified radical mastectomy, infiltrated the skin around elliptical incision encompassing the nipple areolar complex and then once it was infiltrated with local, then made an incision with #10 blade, carried down to the skin into the subcutaneous tissue and then deepened down to subcutaneous tissue with Bovie electrocautery, creating flaps superiorly and inferiorly, inferiorly going to below the inframammary fold and superiorly going to the clavicle, medially going to the sternum and then laterally going out into the axillary area and mid axillary line, carried this down to the pectoralis major muscle and then took the skin and breast tissue and fat and the pectoralis major fascia, removing this all the way out to the side and then removed this completely, passing this off the table. Switched gloves, switched instruments and new set up to do the sentinel node biopsy, brought in the counter and found the 832 In vivo node, started dissecting towards this, it was blue, able to grasp this with a Damian and then cut this out. Ex-vivo was 2035. I looked around and found another count of 281, dissected towards this another node, did not look like it was quite blue, removed it and ex-vivo of 383 and then felt around and used the probe, did not find any other hot lesions at this point, then elected to stop. Copiously irrigated the chest wall and this axillary area with sterile water, then placed a 19-Nepali Brenton drain brought out to the mid axillary line, sutured in place with a 2-0 silk. I then closed the incision with 3-0 Vicryl, approximately 12 interrupted subcuticular stitches and then closed the skin with 4-0 undyed Monocryl, one from the running from the middle laterally to the axilla and then from the middle medially towards the sternum. The area was then cleaned and dried. Dermabond placed and then a pressure dressing placed. The patient tolerated the procedure and transferred to recovery room in stable condition. Sponge, instrument and needle counts were correct at the end of the case. Dr. Piper assisted me in this case helping to make incisions, close incisions and identify anatomy as well as hold the anatomy out of the way. Job ID: [id number] DocumentID: [id number] Dictated Date: 01/15/2019 13:35:40 Residential Program Manager Date: 01/15/2019 20:18:08 Dictated By: DO AVIS MORRIS
[2019-01-16] VITALS: BP 109/69
[2019-01-16] MEDS: ceFAZolin 2 GM IV Premixed 50 ML IV SCH (00:53)
[2019-01-16] MEDS: LACTATED RINGERS 1,000 ML IV SCH (04:23)
--- NOTE | 2019-01-16 05:04 | NUR ---
pt offered pain medications-pt continues to refuse to take any pain medication.
[2019-01-16 08:00] VITALS: BP 89/53
--- NOTE | 2019-01-16 09:55 | Progress Note ---
Subjective Time Seen by a Provider: 09:41 Subjective/Events-last exam Pt seen and examined, states no pain. Only concern is O2 sat was 88% off the nasal canula. Review of Systems General: No Chills, No Night Sweats Cardiovascular: No: Chest Pain, Palpitations Gastrointestinal: No: Nausea, Vomiting Objective Exam Vital Signs Date Time Temp Pulse Resp B/P (MAP) Pulse Ox O2 Delivery O2 Flow Rate FiO2 01/16/19 08:00 97.9 58 18 89/53 (65) 98 Nasal Cannula 2.00 01/16/19 00:00 97.0 64 20 109/69 (82) 95 Nasal Cannula 1.00 01/15/19 20:30 Nasal Cannula 2.00 01/15/19 20:29 97.0 71 18 102/65 (77) 94 Nasal Cannula 1.00 01/15/19 16:42 Nasal Cannula 2.00 01/15/19 16:00 92 Nasal Cannula 2.00 01/15/19 15:39 96.6 76 16 95/59 (71) 92 Room Air 01/15/19 12:45 Nasal Cannula 4.00 01/15/19 12:20 97.0 16 96 Nasal Cannula 4 01/15/19 12:10 20 97 OxyMask 10 01/15/19 12:00 16 98 OxyMask 10 01/15/19 11:50 16 94 OxyMask 10 01/15/19 11:40 16 98 OxyMask 10 01/15/19 11:30 18 90 OxyMask 10 01/15/19 11:20 20 94 OxyMask 10 01/15/19 11:15 97.6 20 94 OxyMask 10 I & O 01/16/19 07:00 Intake Total 3370 ml Output Total 80 ml Balance 3290 ml Capillary Refill : General Appearance: No Apparent Distress, WD/WN Respiratory: Chest Non Tender, Lungs Clear, Normal Breath Sounds Cardiovascular: Regular Rate, Rhythm, No Murmur Skin: Other (Incision is c/d/i, joe drain with serosanguinous fluid) Assessment/Plan Assessment/Plan Assessment/Plan S/P R MRM DC IV and DC home Clinical Quality Measures DVT/VTE Risk/Contraindication: Risk Factor Score Per Nursin RFS Level Per Nursing on Admit: 3=High MARIKA WILL DO Jan 16, 2019 09:55
[2019-01-16] MEDS ORDERED: ACHD5005 PO (09:56)
--- NOTE | 2019-01-16 09:57 | Discharge Inst-Surgical ---
Discharge Inst-Surgical Depart Medication/Instructions New, Converted or Re-Newed RX: RX Given to Pt/Family Patient Instructions Follow up Appt: Make appointment for 1 week. [phone] Instructions: No lifting greater than 20 pounds. No strenuous activity. May shower in 24 hours, no tub bath or soaking. Use incentive spirometer at home as directed. No Smoking Skin/Wound Care: May remove bandages in am. You need to leave the Dermabond on incision it will fall off on it's own. Symptoms to Report: Appetite Changes, Extremity Discoloration, Numbness/Tingling, Swelling Increased, Bleeding Excessive, Eyesight Changes, Pain Increased, Urine Color Change, Constipation(Persistent), Fever over 101 degree F, Pain/Pressure in chest, Urinating Difficulty, Cough Up/Vomit Blood, Heart Beat Irreg/Pounding, Pain/Pressure in jaw, Cramps in feet or legs, Lightheadedness, Pain/Pressure in shoulder, Diarrhea(Persistent), Memory Changes Suddenly, Questions/Concerns, Weight gain consecutive days, Dizziness/Fainting, Nausea/Vomiting, Shortness of Breath, Weight gain over 2 pounds If questions or concerns contact your physician Or seek help at emergency department. Activity Activity Instructions: Avoid Stress to Incision Driving Instructions: No Driving for 1 Week Diet Discharge Diet: No Restrictions Diet After 24 Hours: Clear Liquid if Nauseous If Any Problems/Questions/Issu: Contact Your Physician, Go to Emergency Room Skin/Wound Care Infection Signs and Symptoms: Increased Redness, Foul Odor of Wound, Increased Drainage, Skin Itchy or Has a Rash, Increased Swelling, Temperature Above 101 F Wound Care Comment: Drain teaching Bathing Instructions: Shower Stitches/Devon/Dermabond Dis: MARIKA Fernandez DO Jan 16, 2019 09:57
--- NOTE | 2019-01-16 13:13 | NUR ---
Pt discharged home with instructions from Dr. Dempsey who will be providing follow-up appts, and will follow with Dr. Cavazos on Jan 30 to review pathology reports. Pt has [employer] Medicare insurance but was concerned about co-pays and deductibles and given a Financial Assistance application for completion. She refused referral to [facility] as she has already experienced prior mastectomy surgery.Her and adult daughter Eden will be proving her care upon discharge home. [facility] and further treatment options.
[2019-01-16 15:30] VITALS: BP 89/53
== END 2019-01-16 15:31 | disposition home or self-care (01) ==
LOC: SDC 06:02 → EDSTATUS 10:30 → 4TH 12:45 → SDC 01-16 15:31
PROVIDERS: ATTEND Surgery
DX: C50.411 Malignant neoplasm of upper-outer quadrant of right female breast (principal); Z90.12 Acquired absence of left breast and nipple; Z80.3 Family history of malignant neoplasm of breast; Z86.711 Personal history of pulmonary embolism; E03.9 Hypothyroidism, unspecified; E66.9 Obesity, unspecified; Z68.32 Body mass index [BMI] 32.0-32.9, adult; Z79.899 Other long term (current) drug therapy
CPT/HCPCS: 94664; 94760

== ENCOUNTER 2019-01-30 13:04 | Outpatient (RCR) | payer MEDICARE ==
[2018-12-03 10:21] LABS: BASOPHILS # (AUTO) 0.1 10^3/uL (0.0-0.1); BASOPHILS % (AUTO) 1 % (0-10); EOSINOPHILS # (AUTO) 0.2 10^3/uL (0.0-0.3); EOSINOPHILS % (AUTO) 2 % (0-10); HEMATOCRIT 42 % (35-52); HEMOGLOBIN 12.9 G/DL (11.5-16.0); LYMPHOCYTES # (AUTO) 2.2 X 10^3 (1.0-4.0); LYMPHOCYTES % (AUTO) 24 % (12-44); MEAN CORPUSCULAR HEMOGLOBIN 27 PG (25-34); MEAN CORPUSCULAR HGB CONC 31 G/DL (32-36); MEAN CORPUSCULAR VOLUME 89 FL (80-99); MEAN PLATELET VOLUME 10.3 FL (7.4-10.4); MONOCYTES # (AUTO) 0.8 X 10^3 (0.0-1.0); MONOCYTES % (AUTO) 9 % (0-12); NEUTROPHILS # (AUTO) 5.6 X 10^3 (1.8-7.8); NEUTROPHILS % (AUTO) 63 % (42-75); PLATELET COUNT 230 10^3/uL (130-400); RED CELL DISTRIBUTION WIDTH 13.8 % (10.0-14.5); WHITE BLOOD COUNT 8.8 10^3/uL (4.3-11.0)
[2018-12-03 10:53] LABS: ALANINE AMINOTRANSFERASE 12 U/L (0-55); ALBUMIN 3.9 GM/DL (3.2-4.5); ALKALINE PHOSPHATASE 73 U/L (40-136); BILIRUBIN,TOTAL 0.4 MG/DL (0.1-1.0); BUN/CREATININE RATIO 20; CALCIUM 9.7 MG/DL (8.5-10.1); CARBON DIOXIDE 31 MMOL/L (21-32); CHLORIDE 101 MMOL/L (98-107); CREATININE SERUM 0.76 MG/DL (0.60-1.30); GFR ESTIMATED > 60; GLUCOSE 114 MG/DL (70-105); POTASSIUM 4.9 MMOL/L (3.6-5.0); SODIUM 140 MMOL/L (135-145); TOTAL PROTEIN 6.8 GM/DL (6.4-8.2)
[~2019-01-30 13:04] MED LIST changes: +ACHD5005 PO; -OMEP20CA12 PO; +OMEP20CA13 PO
== END 2019-02-28 10:31 | disposition home or self-care (01) ==
LOC: ONC 13:04
PROVIDERS: ATTEND Internal Medicine Hematology & Oncology
DX: C50.512 Malignant neoplasm of lower-outer quadrant of left female breast (principal); E03.9 Hypothyroidism, unspecified; Z90.12 Acquired absence of left breast and nipple; Z92.21 Personal history of antineoplastic chemotherapy; Z79.899 Other long term (current) drug therapy
CPT/HCPCS: 36415; 80053; 84443; 85025; 99213

== ENCOUNTER → 2019-02-25 | Outpatient (CLI) | payer MEDICARE ==
--- NOTE | 2019-02-25 14:11 | Diagnostic Imaging Report ---
INDICATION: Right breast carcinoma, initial staging. Patient has prior history of left breast carcinoma in 2015. TECHNIQUE: Serum blood glucose level at the time of injection was 122 mg/dL. The patient was administered 13.5 mCi F-18 FDG intravenously in the left forearm and PET imaging was performed from the top of the skull to the mid thighs. Noncontrast CT was also performed for attenuation correction and anatomic correlation. COMPARISON: Correlation is made with prior PET scan from 12/15/2014. FINDINGS: There is symmetric activity throughout the brain. Soft tissues of the neck are unremarkable. There is some mild generalized uptake in the right breast likely from prior surgery. No suspicious focus of hypermetabolism is seen. There is also postsurgical changes of lumpectomy in the left breast. Previously noted hypermetabolic focus in left breast on the PET scan from 2014 is no longer visualized and has been surgically removed. There is an area of ovoid low density in the right axilla which does not demonstrate FDG uptake and may represent a small residual fluid collection from surgery. No mediastinal or hilar hypermetabolism is seen. No pulmonary parenchymal abnormality is detected. Abdomen and pelvis demonstrate physiologic activity within the GI and tracts. No suspicious hypermetabolism is seen. IMPRESSION: Postsurgical changes to the right breast. No suspicious hypermetabolism is identified to suggest metastatic disease. Dictated by: Dictated on workstation # [id number]
== END ==
LOC: RAD 08:38
PROVIDERS: ATTEND Internal Medicine Hematology & Oncology
DX: C50.911 Malignant neoplasm of unspecified site of right female breast (principal); Z85.3 Personal history of malignant neoplasm of breast; Z98.890 Other specified postprocedural states

== ENCOUNTER → 2019-05-13 | Outpatient (CLI) | payer MEDICARE ==
--- NOTE | 2019-05-13 15:58 | Diagnostic Imaging Report ---
INDICATION: Postmenopausal screening. COMPARISON: None. FINDINGS: AP lumbar spine: [BMD (g/cm2): 1.025] [T-Score: -1.5] [Z-Score: -0.8] [BMD Previous: N/A] [BMD % Change: N/A] LT Hip Neck: [BMD (g/cm2): 0.780] [T-Score: -1.9] [Z-Score: -0.8] LT Hip Total: [BMD (g/cm2):0.886] [T-Score:-1.0] [Z-Score: -0.2] [BMD Previous: N/A] [BMD % Change: N/A] RT Hip Neck: [BMD (g/cm2):0.780] [T-Score:-1.9] [Z-Score:-0.8] RT Hip Total: [BMD (g/cm2):0.874] [T-score:-1.1] [Z-Score:-0.3] [BMD Previous:N/A] [BMD % Change:N/A] *Indicates significant change from prior examination based on 95% confidence level. World Health Organization criteria for BMD interpretation classify patients as Normal (T-score at or above -1.0), Osteopenic (T-score between -1.0 and -2.5) or Osteoporotic (T-score at or below -2.5). LIMITATIONS AND MODIFICATION: None. FRACTURE RISK (FRAX SCORE): The ten year probability of (%): Major Osteoporotic Fracture: [12.6] Hip Fracture: [2.7] IMPRESSION: 1. Osteopenia (Low bone mass). 2. Baseline examination. 3. See below National Osteoporosis Foundation guidelines on when to potentially initiate pharmacologic therapy. Based on the National Osteoporosis Foundation Guidelines, pharmacologic treatment should be initiated in any of the following, unless clinical conditions suggest otherwise: * Any patient with prior fragility fracture of the hip or vertebrae. A spine fracture indicates 5X risk for subsequent spine fracture and 2X risk for subsequent hip fracture. * Osteoporosis (T-score <-2.5). * Postmenopausal women and men age 50 and older with low bone mass/osteopenia (T-score between -1.0 and -2.5) by DXA and 10-year major osteoporotic fracture greater than 20% or a 10-year probability of hip fracture greater than 3%. These fracture risks are supplied above in the FRAX score, if applicable. * Clinician judgement and/or patient preferences may indicate treatment for people with 10-year fracture probabilities above or below these levels. Dictated by: Dictated on workstation # [id number]
== END ==
LOC: RAD 14:53
PROVIDERS: ATTEND Nurse Practitioner Adult Health
DX: C50.512 Malignant neoplasm of lower-outer quadrant of left female breast (principal); Z78.0 Asymptomatic menopausal state
CPT/HCPCS: 77080

== ENCOUNTER 2019-05-20 09:56 | Outpatient (RCR) | payer MEDICARE ==
[2019-03-04 14:12] LABS: BASOPHILS % (AUTO) 0 % (0-10); EOSINOPHILS # (AUTO) 0.2 10^3/uL (0.0-0.3); EOSINOPHILS % (AUTO) 2 % (0-10); HEMATOCRIT 42 % (35-52); HEMOGLOBIN 12.7 G/DL (11.5-16.0); LYMPHOCYTES # (AUTO) 2.1 X 10^3 (1.0-4.0); LYMPHOCYTES % (AUTO) 28 % (12-44); MEAN CORPUSCULAR HEMOGLOBIN 27 PG (25-34); MEAN CORPUSCULAR HGB CONC 30 G/DL (32-36); MEAN CORPUSCULAR VOLUME 90 FL (80-99); MEAN PLATELET VOLUME 10.7 FL (7.4-10.4); MONOCYTES # (AUTO) 0.6 X 10^3 (0.0-1.0); MONOCYTES % (AUTO) 9 % (0-12); NEUTROPHILS # (AUTO) 4.5 X 10^3 (1.8-7.8); NEUTROPHILS % (AUTO) 61 % (42-75); PLATELET COUNT 213 10^3/uL (130-400); RED CELL DISTRIBUTION WIDTH 14.6 % (10.0-14.5); WHITE BLOOD COUNT 7.4 10^3/uL (4.3-11.0)
[2019-03-04 14:32] LABS: ALANINE AMINOTRANSFERASE 12 U/L (0-55); ALBUMIN 3.9 GM/DL (3.2-4.5); ALKALINE PHOSPHATASE 82 U/L (40-136); BILIRUBIN,TOTAL 0.3 MG/DL (0.1-1.0); BUN/CREATININE RATIO 15; CALCIUM 9.5 MG/DL (8.5-10.1); CARBON DIOXIDE 28 MMOL/L (21-32); CHLORIDE 104 MMOL/L (98-107); CREATININE SERUM 0.81 MG/DL (0.60-1.30); GFR ESTIMATED > 60; GLUCOSE 126 MG/DL (70-105); POTASSIUM 4.6 MMOL/L (3.6-5.0); SODIUM 142 MMOL/L (135-145); TOTAL PROTEIN 7.1 GM/DL (6.4-8.2)
[2019-04-15 10:59] LABS: BASOPHILS % (AUTO) 1 % (0-10); EOSINOPHILS # (AUTO) 0.1 10^3/uL (0.0-0.3); EOSINOPHILS % (AUTO) 2 % (0-10); HEMATOCRIT 41 % (35-52); HEMOGLOBIN 12.3 G/DL (11.5-16.0); LYMPHOCYTES % (AUTO) 16 % (12-44); MEAN CORPUSCULAR HEMOGLOBIN 27 PG (25-34); MEAN CORPUSCULAR HGB CONC 30 G/DL (32-36); MEAN CORPUSCULAR VOLUME 90 FL (80-99); MEAN PLATELET VOLUME 10.1 FL (7.4-10.4); MONOCYTES # (AUTO) 0.8 X 10^3 (0.0-1.0); MONOCYTES % (AUTO) 12 % (0-12); NEUTROPHILS # (AUTO) 4.5 X 10^3 (1.8-7.8); NEUTROPHILS % (AUTO) 70 % (42-75); PLATELET COUNT 188 10^3/uL (130-400); RED CELL DISTRIBUTION WIDTH 14.5 % (10.0-14.5); WHITE BLOOD COUNT 6.4 10^3/uL (4.3-11.0)
[2019-04-15 11:25] LABS: ALANINE AMINOTRANSFERASE 8 U/L (0-55); ALBUMIN 3.7 GM/DL (3.2-4.5); ALKALINE PHOSPHATASE 77 U/L (40-136); BILIRUBIN,TOTAL 0.3 MG/DL (0.1-1.0); BUN/CREATININE RATIO 16; CALCIUM 9.1 MG/DL (8.5-10.1); CARBON DIOXIDE 32 MMOL/L (21-32); CHLORIDE 103 MMOL/L (98-107); GFR ESTIMATED > 60; GLUCOSE 119 MG/DL (70-105); POTASSIUM 4.5 MMOL/L (3.6-5.0); SODIUM 140 MMOL/L (135-145); TOTAL PROTEIN 6.6 GM/DL (6.4-8.2)
[2019-04-30 09:13] LABS: BASOPHILS % (AUTO) 0 % (0-10); EOSINOPHILS # (AUTO) 0.2 10^3/uL (0.0-0.3); EOSINOPHILS % (AUTO) 3 % (0-10); HEMATOCRIT 43 % (35-52); LYMPHOCYTES # (AUTO) 0.7 X 10^3 (1.0-4.0); LYMPHOCYTES % (AUTO) 15 % (12-44); MEAN CORPUSCULAR HEMOGLOBIN 27 PG (25-34); MEAN CORPUSCULAR HGB CONC 30 G/DL (32-36); MEAN CORPUSCULAR VOLUME 89 FL (80-99); MEAN PLATELET VOLUME 10.1 FL (7.4-10.4); MONOCYTES # (AUTO) 0.7 X 10^3 (0.0-1.0); MONOCYTES % (AUTO) 13 % (0-12); NEUTROPHILS # (AUTO) 3.4 X 10^3 (1.8-7.8); NEUTROPHILS % (AUTO) 69 % (42-75); PLATELET COUNT 173 10^3/uL (130-400); RED CELL DISTRIBUTION WIDTH 14.8 % (10.0-14.5); WHITE BLOOD COUNT 4.9 10^3/uL (4.3-11.0)
[2019-04-30 09:40] LABS: ALANINE AMINOTRANSFERASE 18 U/L (0-55); ALBUMIN 3.9 GM/DL (3.2-4.5); ALKALINE PHOSPHATASE 78 U/L (40-136); BILIRUBIN,TOTAL 0.4 MG/DL (0.1-1.0); BUN/CREATININE RATIO 16; CALCIUM 9.2 MG/DL (8.5-10.1); CARBON DIOXIDE 32 MMOL/L (21-32); CHLORIDE 101 MMOL/L (98-107); CREATININE SERUM 0.74 MG/DL (0.60-1.30); GFR ESTIMATED > 60; GLUCOSE 116 MG/DL (70-105); POTASSIUM 4.8 MMOL/L (3.6-5.0); SODIUM 140 MMOL/L (135-145); TOTAL PROTEIN 7.1 GM/DL (6.4-8.2)
[2019-05-20 10:24] LABS: BASOPHILS % (AUTO) 0 % (0-10); EOSINOPHILS # (AUTO) 0.9 10^3/uL (0.0-0.3); EOSINOPHILS % (AUTO) 10 % (0-10); HEMATOCRIT 39 % (35-52); HEMOGLOBIN 11.6 G/DL (11.5-16.0); LYMPHOCYTES # (AUTO) 0.4 X 10^3 (1.0-4.0); LYMPHOCYTES % (AUTO) 4 % (12-44); MEAN CORPUSCULAR HEMOGLOBIN 26 PG (25-34); MEAN CORPUSCULAR HGB CONC 30 G/DL (32-36); MEAN CORPUSCULAR VOLUME 88 FL (80-99); MEAN PLATELET VOLUME 10.8 FL (7.4-10.4); MONOCYTES # (AUTO) 0.8 X 10^3 (0.0-1.0); MONOCYTES % (AUTO) 8 % (0-12); NEUTROPHILS # (AUTO) 7.2 X 10^3 (1.8-7.8); NEUTROPHILS % (AUTO) 78 % (42-75); PLATELET COUNT 137 10^3/uL (130-400); RED CELL DISTRIBUTION WIDTH 14.8 % (10.0-14.5); WHITE BLOOD COUNT 9.2 10^3/uL (4.3-11.0)
[2019-05-20 10:50] LABS: ALANINE AMINOTRANSFERASE 9 U/L (0-55); ALBUMIN 3.3 GM/DL (3.2-4.5); ALKALINE PHOSPHATASE 78 U/L (40-136); BILIRUBIN,TOTAL 0.4 MG/DL (0.1-1.0); BUN/CREATININE RATIO 15; CALCIUM 9.4 MG/DL (8.5-10.1); CARBON DIOXIDE 30 MMOL/L (21-32); CHLORIDE 93 MMOL/L (98-107); CREATININE SERUM 0.84 MG/DL (0.60-1.30); GFR ESTIMATED > 60; GLUCOSE 176 MG/DL (70-105); POTASSIUM 4.2 MMOL/L (3.6-5.0); SODIUM 135 MMOL/L (135-145); TOTAL PROTEIN 6.9 GM/DL (6.4-8.2)
[2019-05-29] MEDS ORDERED: HYDR-3812 PO (10:40)
[2019-05-29] MEDS ORDERED: LETR2.5T5 PO (10:40)
[2019-05-29] MEDS ORDERED: SILV25CR21 TOP (10:43)
[2019-05-29] MEDS ORDERED: KETO15CR2 TOP (10:43)
[2019-05-30] MEDS ORDERED: HYDR-3812 PO (10:39)
[2019-05-30] MEDS ORDERED: CEPH-507 PO (10:39)
== END 2019-06-02 | disposition home or self-care (01) ==
LOC: ONC 09:56
PROVIDERS: ATTEND Internal Medicine Hematology & Oncology
DX: C50.512 Malignant neoplasm of lower-outer quadrant of left female breast (principal); E03.9 Hypothyroidism, unspecified; Z90.12 Acquired absence of left breast and nipple; Z92.21 Personal history of antineoplastic chemotherapy; Z79.899 Other long term (current) drug therapy
CPT/HCPCS: 36415; 77290; 77295; 77300; 77334; 77336; 77417; 77470; 80053; 84443; 85025; 99204; 99213

== ENCOUNTER → 2019-05-28 | Outpatient (CLI) | payer MEDICARE ==
[~2019-05-28] MED LIST changes: +CATHETER FLUSH 10 ML SYR IV PRN; +CEPH-507 PO; +HOLD METFORMIN - RECEIVED CONTRAST 20 ML VIAL IV SCH; +HYDR-3812 PO; +HYDROmorphone 2 MG/ML VIAL (DILAUDID) ONE; +IOHEXOL 350 MG/ML 100 ML (OMNIPAQUE 350) VIAL IV ONE; +KETO15CR2 TOP; +LACTATED RINGERS 1,000 ML IV SCH; +LETR2.5T5 PO; +NS 100 ML (IVPB) BAG IV ONE; +SILV25CR21 TOP; +cefTRIAXone FOR IV USE 1,000 MG in WATER (STERILE) FOR INJECTION 10 ML IV SCH; +morphine INJ 4 MG/ML 1 ML (VIAL/SYRINGE) IV PRN
--- NOTE | 2019-05-28 16:11 | Diagnostic Imaging Report ---
PROCEDURE: CT chest with contrast only. TECHNIQUE: Multiple contiguous axial images were obtained through the chest after administration of intravenous contrast. Auto Exposure Controls were utilized during the CT exam to meet ALARA standards for radiation dose reduction. INDICATION: This patient has a history of breast cancer and mastectomy, now with a swollen painful right chest. COMPARISON: Comparison limited to post-mastectomy metabolic CT fusion PET performed on 02/25/2019. FINDINGS: There is marked skin thickening, edema, and swelling about the right chest with large multilobulated fluid collection, a portion of which extends intrapectoral with elevation of the thickened pectoralis major. This is found laterally in the postoperative chest wall and in axial plane measures maximal 8 x 5.2 cm with cephalocaudal height of about 8 cm. While it contains no identifiable gas, it is suspicious for an infected collection with regional cellulitis and pectoralis myositis. Correlate clinically, as infection is suspected. If the process is drained, portion of the fluid should be sent for cytology to exclude less likely other etiology such as recurrence of diffusely infiltrative neoplasm. The edematous changes extend into the right axilla where there is mild presumed reactive lymphadenopathy. The subclavian artery in its axillary segment appeared patent. The subclavian vein, where identifiable, appeared grossly unremarkable. The internal mammary lymph node chains appeared normal. There are no pathological-appearing hilar or mediastinal lymph nodes. The postoperative left axilla and chest wall appeared unremarkable. There is no pleural or pericardial effusion. There are mild zones of bibasilar subsegmental atelectasis. No findings of edema or acute pneumonia. No destructive osseous lesion. The visualized upper abdomen showed intact adrenal glands and nonfocal partially visualized liver. IMPRESSION: 1. Likely extensive inflammatory changes about the postop surgical right chest with large bilobed fluid collection, suspicious for abscess with mild regional adenopathy in the right axilla; likely reactive. Cellulitis, myositis, and abscess are suspected, although if the collection is evacuated, specimen should be sent for cytological analysis. 2. Postoperative left chest wall and axilla appeared normal. No suspicious pulmonary parenchymal, hilar, or mediastinal finding. Results discussed with Dr. Cavazos. Dictated by: Dictated on workstation # [id number]
--- NOTE | 2019-05-28 16:53 | History & Physical-Surgical ---
History of Present Illness History of Present Illness Reason for visit/HPI Pt is a 69 yo female who was at her Oncology appt; seeing Medical and Radiation Oncologist. She states she has been having pain in the right chest wall and the area was getting red. Her Oncologist was treating it as Radiation Dermatitis; however, today it was much worse than last visit. She states she has had pain for 2-3 weeks, but over the last few days the pain has increased to almost 10 out of 10. She has not been able to raise her right arm very high and she has pain whenever she goes over bumps in road or even while riding in wheelchair. Pain is constant and she states even the Hydrocodone was not touching the pain. Pain radiates all across her right chest and into axilla. She states the area is "puffy and swollen". Pt had seen her Oncologist and was being treated with Silvadene breast cream. Date of Admission 05/28/2019 Date Seen by a Provider: May 28, 2019 Time Seen by a Provider: 16:07 I consulted on this patient on 05/28/19 16:48 Attending Physician Vanessa Cavazos Admitting Physician Kelvin Dempsey, DO Consult Allergies and Home Medications Allergies Uncoded Allergies: TAPE (Allergy, Severe, BLISTERS, 01/06/19) Home Medications Fish Oil/Dha/Epa 1 Each Capsule, 1 EACH PO DAILY, (Reported) Hydrocodone Bit/Acetaminophen 1 Tab Tab, 1 TAB PO Q6HR PRN for PAIN-MODERATE Prescribed by: KELVIN DEMPSEY on 01/16/19 0956 Levothyroxine Sodium 125 Mcg Tablet, 125 MCG PO DAILY, (Reported) Patient Home Medication List Home Medication List Reviewed: Yes Past Ydfyzyz-Pojkca-Qeunmh Hx Patient Social History Alcohol Use: Occasionally Uses Smoking Status: Former Smoker (40 pack year hx) Former Smoker, Quit: Jan 06, 2009 2nd Hand Smoke Exposure: Yes Recent Foreign Travel: No Contact w/Someone Who Travel: No Recent Hopitalizations: No Immunizations Up To Date Tetanus Booster (TDap): Unknown Date of Pneumonia Vaccine: Sep 07, 2017 Date of Influenza Vaccine: Apr 29, 2018 Seasonal Allergies Seasonal Allergies: Yes Surgeries History of Surgeries: Yes (CATARACT, CTR, LUNG BX, PORT PLACED AND REMOVED, LEFT MASTECTOMY,TURBT, Right Mastectomy) Surgeries: Hysterectomy, Oophorectomy, Tonsillectomy Respiratory History of Respiratory Disorde: Yes (LUNG BX 6 YRS AGO/WEARS O2 AT HS) Respiratory Disorders: Pneumonia, Pulmonary Embolism Cardiovascular History of Cardiac Disorders: No Neurological History of Neurological Disord: No Reproductive System Hx Reproductive Disorders: Yes ("ovary w/ 10 lbs of fluid" ) Sexually Transmitted Disease: No HIV/AIDS: No Female Reproductive Disorders: Denies Genitourinary History of Genitourinary Disor: No Gastrointestinal History of Gastrointestinal Di: No Gastrointestinal Disorders: Gastroesophageal Reflux Musculoskeletal History of Musculoskeletal Dis: No Endocrine History of Endocrine Disorders: Yes Endocrine Disorders: Hypothyroidsim HEENT History of HEENT Disorders: Yes (READING GLASSES) HEENT Disorders: Cataract Cancer History of Cancer: Yes Cancer: Breast Psychosocial History of Psychiatric Problem: No Integumentary History of Skin or Integumenta: No Blood Transfusions History of Blood Disorders: No Adverse Reaction to a Blood Tr: No (N/A) Family Medical History Significant Family History: Cancer (Mother and Niece had breast CA), Diabetes Family Medial History: Diabetes mellitus 19 MOTHER G8 BROTHER G8 SISTER Myocardial infarction 19 MOTHER Review of Systems Constitutional: chills, diaphoresis, malaise EENTM: No blurred vision, No double vision, No mouth pain, No mouth swelling, No epistaxis Respiratory: No cough, No dyspnea on exertion, No hemoptysis, No short of breath Cardiovascular: No chest pain, No edema, No palpitations Gastrointestinal: No abdominal pain, No constipation; loss of appetite (only over past couple of days, she says is because of the pain), nausea; No vomiting Genitourinary: No dysuria, No frequency, No hematuria; other (recently diagnosed with low grade bladder CA) Musculoskeletal: joint pain, joint swelling, muscle stiffness Skin: see HPI; No rash Psychiatric/Neurological: Denies Anxiety, Denies Depressed, Denies Seizure, Denies Tremors pt denies any hx of abnormal bleeding or bruising Physical Exam Vital Signs Capillary Refill : Height, Weight, BMI Height: 5'9.00" Weight: 215lbs. 6.0oz. 97.769185dl; 31.8 BMI Method: General Appearance: WD/WN, Moderate Distress Eyes: Bilateral Eye PERRL, Bilateral Eye EOMI HEENT: Pharynx Normal; No Pale Conjunctivae (L), No Pale Conjunctivae (R), No Scleral Icterus (L), No Scleral Icterus (R) Neck: Full Range of Motion, Normal Inspection, Non Tender, Supple Respiratory: Lungs Clear, Normal Breath Sounds, No Accessory Muscle Use, No Respiratory Distress Cardiovascular: Regular Rate, Rhythm, No Murmur Gastrointestinal: Normal Bowel Sounds, No Organomegaly, No Pulsatile Mass, Non Tender, Soft Rectal: Deferred Back: No CVA Tenderness, No Vertebral Tenderness Extremity: Normal Capillary Refill, No Calf Tenderness, No Pedal Edema Neurologic/Psychiatric: Alert, Oriented x3, No Motor/Sensory Deficits, Normal Mood/Affect, promotions executive II-XII Norm as Tested Skin: No Diaphoresis, No Jaundice, No Pallor; Other (Right chest wall is very red, hot and very tender to touch, so much so that is decreasing her ROM in right arm. It is also swollen and feels like there is fluctuance.) Assessment/Plan Assessment/Plan Admission Diagonsis Right Chest Wall Abscess Hx of B/L breast CA (right is most recent and what she is being treated for) Bladder CA Hypothyroid Admission Status: Observation Assessment/Plan Right Chest Wall Abscess Hx of B/L breast CA (right is most recent and what she is being treated for) Bladder CA Hypothyroid Pt had a CT of the chest performed and it confirmed chest wall abscess, large fluid collection without air in it. Pt needs an incision and drainage of her right chest wall, with possible debridement and possible packing. I will order consent for this procedure, she will be made NPO, start IV fluids, IV ABX, IV pain medications and anti-emetics. She can have a regular diet tonight; she is being admitted to the hospital because she ate peanut butter at 13:30 and Anesthesia needs her npo for 8 hours after that. Therefore, we will control her pain and plan for procedure tomorrow and then hopefully home. Discussed risks and complications with her, not limited to pain, bleeding, infection, scar and most likely will have to leave the wound open and pack it daily. All questions answered to her and her 's satisfaction. Pt will not need to start her levothyroxine tomorrow, can take when she gets home. KELVIN DEMPSEY DO May 28, 2019 16:53 POS
== END ==
LOC: RAD 14:42
PROVIDERS: ATTEND Internal Medicine Hematology & Oncology
DX: C67.9 Malignant neoplasm of bladder, unspecified (principal); R22.2 Localized swelling, mass and lump, trunk; Z90.11 Acquired absence of right breast and nipple; Z85.3 Personal history of malignant neoplasm of breast; Z92.3 Personal history of irradiation
CPT/HCPCS: 71260

== ENCOUNTER → 2019-06-17 | Outpatient (CLI) | payer MEDICARE ==
[~2019-06-17] MED LIST changes: -CATHETER FLUSH 10 ML SYR IV PRN; -HOLD METFORMIN - RECEIVED CONTRAST 20 ML VIAL IV SCH; -HYDROmorphone 2 MG/ML VIAL (DILAUDID) ONE; -IOHEXOL 350 MG/ML 100 ML (OMNIPAQUE 350) VIAL IV ONE; -LACTATED RINGERS 1,000 ML IV SCH; -NS 100 ML (IVPB) BAG IV ONE; -cefTRIAXone FOR IV USE 1,000 MG in WATER (STERILE) FOR INJECTION 10 ML IV SCH; -morphine INJ 4 MG/ML 1 ML (VIAL/SYRINGE) IV PRN
--- NOTE | 2019-06-17 11:49 | Diagnostic Imaging Report ---
INDICATION: Draining wound. FINDINGS: Chest wall sonographic surveillance revealed no identifiable fluid collection. IMPRESSION: No chest wall fluid collection demonstrated. Dictated by: Dictated on workstation # [id number]
== END ==
LOC: RAD 10:39
PROVIDERS: ATTEND Surgery
DX: J94.8 Other specified pleural conditions (principal); Z90.11 Acquired absence of right breast and nipple
CPT/HCPCS: 76604

== ENCOUNTER 2019-08-11 14:02 | Outpatient (RCR) | payer MEDICARE ==
[2019-06-10 11:52] LABS: BASOPHILS % (AUTO) 1 % (0-10); EOSINOPHILS # (AUTO) 0.2 10^3/uL (0.0-0.3); EOSINOPHILS % (AUTO) 2 % (0-10); HEMATOCRIT 40 % (35-52); HEMOGLOBIN 12.2 G/DL (11.5-16.0); LYMPHOCYTES # (AUTO) 1.1 X 10^3 (1.0-4.0); LYMPHOCYTES % (AUTO) 17 % (12-44); MEAN CORPUSCULAR HEMOGLOBIN 27 PG (25-34); MEAN CORPUSCULAR HGB CONC 30 G/DL (32-36); MEAN CORPUSCULAR VOLUME 88 FL (80-99); MEAN PLATELET VOLUME 10.3 FL (7.4-10.4); MONOCYTES # (AUTO) 0.9 X 10^3 (0.0-1.0); MONOCYTES % (AUTO) 13 % (0-12); NEUTROPHILS # (AUTO) 4.4 X 10^3 (1.8-7.8); NEUTROPHILS % (AUTO) 67 % (42-75); PLATELET COUNT 226 10^3/uL (130-400); RED CELL DISTRIBUTION WIDTH 15.6 % (10.0-14.5); WHITE BLOOD COUNT 6.6 10^3/uL (4.3-11.0)
[2019-06-10 12:12] LABS: ALANINE AMINOTRANSFERASE 13 U/L (0-55); ALBUMIN 3.6 GM/DL (3.2-4.5); ALKALINE PHOSPHATASE 68 U/L (40-136); BILIRUBIN,TOTAL 0.4 MG/DL (0.1-1.0); BUN/CREATININE RATIO 12; CALCIUM 9.6 MG/DL (8.5-10.1); CARBON DIOXIDE 27 MMOL/L (21-32); CHLORIDE 99 MMOL/L (98-107); CREATININE SERUM 0.73 MG/DL (0.60-1.30); GFR ESTIMATED > 60; GLUCOSE 108 MG/DL (70-105); POTASSIUM 4.3 MMOL/L (3.6-5.0); SODIUM 138 MMOL/L (135-145); TOTAL PROTEIN 7.3 GM/DL (6.4-8.2)
[~2019-08-11 14:02] MED LIST changes: +OMEP-280 PO; -OMEP20CA13 PO
[2019-08-11 14:48] LABS: BASOPHILS % (AUTO) 0 % (0-10); EOSINOPHILS # (AUTO) 0.1 10^3/uL (0.0-0.3); EOSINOPHILS % (AUTO) 2 % (0-10); HEMATOCRIT 38 % (35-52); HEMOGLOBIN 11.5 G/DL (11.5-16.0); LYMPHOCYTES # (AUTO) 1.4 X 10^3 (1.0-4.0); LYMPHOCYTES % (AUTO) 21 % (12-44); MEAN CORPUSCULAR HEMOGLOBIN 26 PG (25-34); MEAN CORPUSCULAR HGB CONC 30 G/DL (32-36); MEAN CORPUSCULAR VOLUME 86 FL (80-99); MEAN PLATELET VOLUME 10.1 FL (7.4-10.4); MONOCYTES # (AUTO) 0.6 X 10^3 (0.0-1.0); MONOCYTES % (AUTO) 9 % (0-12); NEUTROPHILS # (AUTO) 4.7 X 10^3 (1.8-7.8); NEUTROPHILS % (AUTO) 68 % (42-75); PLATELET COUNT 209 10^3/uL (130-400); WHITE BLOOD COUNT 6.8 10^3/uL (4.3-11.0)
[2019-08-11 15:13] LABS: ALANINE AMINOTRANSFERASE 8 U/L (0-55); ALBUMIN 3.7 GM/DL (3.2-4.5); ALKALINE PHOSPHATASE 61 U/L (40-136); BILIRUBIN,TOTAL 0.3 MG/DL (0.1-1.0); BUN/CREATININE RATIO 15; CALCIUM 9.5 MG/DL (8.5-10.1); CARBON DIOXIDE 28 MMOL/L (21-32); CHLORIDE 103 MMOL/L (98-107); CREATININE SERUM 0.71 MG/DL (0.60-1.30); GFR ESTIMATED > 60; GLUCOSE 122 MG/DL (70-105); POTASSIUM 4.2 MMOL/L (3.6-5.0); SODIUM 139 MMOL/L (135-145); TOTAL PROTEIN 6.8 GM/DL (6.4-8.2)
== END 2019-09-08 | disposition home or self-care (01) ==
LOC: ONC 14:02
PROVIDERS: ATTEND Internal Medicine Hematology & Oncology
DX: C50.512 Malignant neoplasm of lower-outer quadrant of left female breast (principal); E03.9 Hypothyroidism, unspecified; Z90.12 Acquired absence of left breast and nipple; Z92.21 Personal history of antineoplastic chemotherapy; Z79.899 Other long term (current) drug therapy
CPT/HCPCS: 36415; 80053; 84443; 85025; 99212; 99213

== ENCOUNTER 2019-09-22 11:27 | Outpatient (RCR) | payer MEDICARE ==
[~2019-09-22 11:27] MED LIST changes: -HYDR-3812 PO; -LETR2.5T5 PO; +LETR2.5T6 PO; -OMEP-280 PO; +OMEP20CA18 PO
== END 2019-12-21 | disposition home or self-care (01) ==
LOC: ONC 11:27
PROVIDERS: ATTEND Internal Medicine Hematology & Oncology
DX: C50.512 Malignant neoplasm of lower-outer quadrant of left female breast (principal); E03.9 Hypothyroidism, unspecified; Z90.12 Acquired absence of left breast and nipple; Z92.21 Personal history of antineoplastic chemotherapy; Z79.899 Other long term (current) drug therapy
CPT/HCPCS: 84443

== ENCOUNTER 2020-01-12 14:53 | Outpatient (RCR) | payer MEDICARE ==
[2020-01-12 15:07] LABS: BASOPHILS % (AUTO) 0 % (0-10); EOSINOPHILS # (AUTO) 0.2 10^3/uL (0.0-0.3); EOSINOPHILS % (AUTO) 2 % (0-10); HEMATOCRIT 39 % (35-52); HEMOGLOBIN 12.2 G/DL (11.5-16.0); LYMPHOCYTES # (AUTO) 1.7 X 10^3 (1.0-4.0); LYMPHOCYTES % (AUTO) 23 % (12-44); MEAN CORPUSCULAR HEMOGLOBIN 27 PG (25-34); MEAN CORPUSCULAR HGB CONC 31 G/DL (32-36); MEAN CORPUSCULAR VOLUME 87 FL (80-99); MEAN PLATELET VOLUME 10.4 FL (7.4-10.4); MONOCYTES # (AUTO) 0.7 X 10^3 (0.0-1.0); MONOCYTES % (AUTO) 10 % (0-12); NEUTROPHILS % (AUTO) 66 % (42-75); PLATELET COUNT 214 10^3/uL (130-400); WHITE BLOOD COUNT 7.6 10^3/uL (4.3-11.0)
[2020-01-12 15:27] LABS: ALANINE AMINOTRANSFERASE 10 U/L (0-55); ALBUMIN 3.9 GM/DL (3.2-4.5); ALKALINE PHOSPHATASE 67 U/L (40-136); BILIRUBIN,TOTAL 0.2 MG/DL (0.1-1.0); BUN/CREATININE RATIO 17; CALCIUM 9.2 MG/DL (8.5-10.1); CARBON DIOXIDE 31 MMOL/L (21-32); CHLORIDE 102 MMOL/L (98-107); CREATININE SERUM 0.77 MG/DL (0.60-1.30); GFR ESTIMATED > 60; GLUCOSE 165 MG/DL (70-105); POTASSIUM 3.7 MMOL/L (3.6-5.0); SODIUM 140 MMOL/L (135-145); TOTAL PROTEIN 7.1 GM/DL (6.4-8.2)
== END 2020-04-11 | disposition home or self-care (01) ==
LOC: ONC 14:53
PROVIDERS: ATTEND Internal Medicine Hematology & Oncology
DX: C50.512 Malignant neoplasm of lower-outer quadrant of left female breast (principal); C50.411 Malignant neoplasm of upper-outer quadrant of right female breast; D09.0 Carcinoma in situ of bladder; E03.9 Hypothyroidism, unspecified; Z92.21 Personal history of antineoplastic chemotherapy; Z79.899 Other long term (current) drug therapy; Z90.13 Acquired absence of bilateral breasts and nipples; Z92.3 Personal history of irradiation
CPT/HCPCS: 80053; 84443; 85025; G0463; 99213

== ENCOUNTER → 2020-04-19 | Outpatient (CLI) | payer MEDICARE ==
[2020-04-19 13:56] LABS: BASOPHILS % (AUTO) 1 % (0-10); EOSINOPHILS # (AUTO) 0.2 10^3/uL (0.0-0.3); EOSINOPHILS % (AUTO) 2 % (0-10); HEMATOCRIT 40 % (35-52); HEMOGLOBIN 12.4 g/dL (11.5-16.0); LYMPHOCYTES # (AUTO) 1.8 10^3/uL (1.0-4.0); LYMPHOCYTES % (AUTO) 21 % (12-44); MEAN CORPUSCULAR HEMOGLOBIN 28 pg (25-34); MEAN CORPUSCULAR HGB CONC 31 g/dL (32-36); MEAN CORPUSCULAR VOLUME 89 fL (80-99); MEAN PLATELET VOLUME 10.4 fL (9.0-12.2); MONOCYTES # (AUTO) 0.7 10^3/uL (0.0-1.0); MONOCYTES % (AUTO) 9 % (0-12); NEUTROPHILS # (AUTO) 5.7 10^3/uL (1.8-7.8); NEUTROPHILS % (AUTO) 67 % (42-75); PLATELET COUNT 236 10^3/uL (130-400); WHITE BLOOD COUNT 8.5 10^3/uL (4.3-11.0)
[2020-04-19 14:17] LABS: ALANINE AMINOTRANSFERASE 12 U/L (0-55); ALBUMIN 3.9 GM/DL (3.2-4.5); ALKALINE PHOSPHATASE 72 U/L (40-136); BILIRUBIN,TOTAL 0.3 MG/DL (0.1-1.0); BUN/CREATININE RATIO 15; CARBON DIOXIDE 29 MMOL/L (21-32); CHLORIDE 103 MMOL/L (98-107); CREATININE SERUM 0.81 MG/DL (0.60-1.30); GFR ESTIMATED > 60; GLUCOSE 99 MG/DL (70-105); POTASSIUM 4.4 MMOL/L (3.6-5.0); SODIUM 140 MMOL/L (135-145); TOTAL PROTEIN 7.2 GM/DL (6.4-8.2)
== END ==
LOC: EDSTATUS 04-12 08:34 → ONC 13:36
PROVIDERS: ATTEND Internal Medicine Hematology & Oncology
DX: C50.911 Malignant neoplasm of unspecified site of right female breast (principal); E03.9 Hypothyroidism, unspecified; C67.9 Malignant neoplasm of bladder, unspecified; K21.9 Gastro-esophageal reflux disease without esophagitis; M85.80 Other specified disorders of bone density and structure, unspecified site; Z90.13 Acquired absence of bilateral breasts and nipples; Z92.21 Personal history of antineoplastic chemotherapy; Z92.3 Personal history of irradiation; Z90.6 Acquired absence of other parts of urinary tract
CPT/HCPCS: 80053; 82306; 84443; 85025; G0463; 99213

== ENCOUNTER → 2020-07-20 | Outpatient (CLI) | payer MEDICARE ==
[2020-07-20 15:07] LABS: BASOPHILS % (AUTO) 1 % (0-10); EOSINOPHILS # (AUTO) 0.2 10^3/uL (0.0-0.3); EOSINOPHILS % (AUTO) 2 % (0-10); HEMATOCRIT 39 % (35-52); LYMPHOCYTES # (AUTO) 1.9 X 10^3 (1.0-4.0); LYMPHOCYTES % (AUTO) 23 % (12-44); MEAN CORPUSCULAR HEMOGLOBIN 28 pg (25-34); MEAN CORPUSCULAR HGB CONC 31 g/dL (32-36); MEAN CORPUSCULAR VOLUME 91 fL (80-99); MEAN PLATELET VOLUME 10.4 fL (9.0-12.2); MONOCYTES # (AUTO) 0.6 X 10^3 (0.0-1.0); MONOCYTES % (AUTO) 7 % (0-12); NEUTROPHILS # (AUTO) 5.6 X 10^3 (1.8-7.8); NEUTROPHILS % (AUTO) 68 % (42-75); PLATELET COUNT 229 10^3/uL (130-400); WHITE BLOOD COUNT 8.2 10^3/uL (4.3-11.0)
[2020-07-20 15:18] LABS: ALANINE AMINOTRANSFERASE 11 U/L (0-55); ALBUMIN 3.9 GM/DL (3.2-4.5); ALKALINE PHOSPHATASE 70 U/L (40-136); BILIRUBIN,TOTAL 0.2 MG/DL (0.1-1.0); BUN/CREATININE RATIO 20; CALCIUM 9.6 MG/DL (8.5-10.1); CARBON DIOXIDE 37 MMOL/L (21-32); CHLORIDE 100 MMOL/L (98-107); CREATININE SERUM 0.82 MG/DL (0.60-1.30); GFR ESTIMATED > 60; GLUCOSE 110 MG/DL (70-105); POTASSIUM 4.3 MMOL/L (3.6-5.0); SODIUM 140 MMOL/L (135-145); TOTAL PROTEIN 7.2 GM/DL (6.4-8.2)
== END ==
LOC: ONC 14:38
PROVIDERS: ATTEND Internal Medicine Hematology & Oncology
DX: C50.511 Malignant neoplasm of lower-outer quadrant of right female breast (principal); C67.9 Malignant neoplasm of bladder, unspecified; E55.9 Vitamin D deficiency, unspecified; Z92.3 Personal history of irradiation; Z92.21 Personal history of antineoplastic chemotherapy
CPT/HCPCS: 80053; 85025; G0463; 99213

== ENCOUNTER → 2020-10-21 | Outpatient (CLI) | payer MEDICARE ==
[2020-10-21 10:56] LABS: BASOPHILS # (AUTO) 0.1 10^3/uL (0.0-0.1); BASOPHILS % (AUTO) 1 % (0-10); EOSINOPHILS # (AUTO) 0.4 10^3/uL (0.0-0.3); EOSINOPHILS % (AUTO) 5 % (0-10); HEMATOCRIT 38 % (35-52); HEMOGLOBIN 11.6 g/dL (11.5-16.0); LYMPHOCYTES # (AUTO) 1.6 10^3/uL (1.0-4.0); LYMPHOCYTES % (AUTO) 20 % (12-44); MEAN CORPUSCULAR HEMOGLOBIN 28 pg (25-34); MEAN CORPUSCULAR HGB CONC 30 g/dL (32-36); MEAN CORPUSCULAR VOLUME 92 fL (80-99); MEAN PLATELET VOLUME 10.4 fL (9.0-12.2); MONOCYTES # (AUTO) 0.6 10^3/uL (0.0-1.0); MONOCYTES % (AUTO) 8 % (0-12); NEUTROPHILS # (AUTO) 5.4 10^3/uL (1.8-7.8); NEUTROPHILS % (AUTO) 67 % (42-75); PLATELET COUNT 244 10^3/uL (130-400); WHITE BLOOD COUNT 8.1 10^3/uL (4.3-11.0)
[2020-10-21 11:18] LABS: ALANINE AMINOTRANSFERASE 11 U/L (0-55); ALBUMIN 3.8 GM/DL (3.2-4.5); ALKALINE PHOSPHATASE 71 U/L (40-136); BILIRUBIN,TOTAL 0.3 MG/DL (0.1-1.0); BUN/CREATININE RATIO 20; CALCIUM 9.5 MG/DL (8.5-10.1); CARBON DIOXIDE 31 MMOL/L (21-32); CHLORIDE 98 MMOL/L (98-107); CREATININE SERUM 0.79 MG/DL (0.60-1.30); GFR ESTIMATED > 60; GLUCOSE 124 MG/DL (70-105); POTASSIUM 4.8 MMOL/L (3.6-5.0); SODIUM 139 MMOL/L (135-145); TOTAL PROTEIN 7.1 GM/DL (6.4-8.2)
== END ==
LOC: ONC 10:41
PROVIDERS: ATTEND Internal Medicine Hematology & Oncology
DX: D05.11 Intraductal carcinoma in situ of right breast (principal); C79.11 Secondary malignant neoplasm of bladder; C77.3 Secondary and unspecified malignant neoplasm of axilla and upper limb lymph nodes; E03.9 Hypothyroidism, unspecified; L02.213 Cutaneous abscess of chest wall; Z85.3 Personal history of malignant neoplasm of breast; L59.8 Other specified disorders of the skin and subcutaneous tissue related to radiation; E55.9 Vitamin D deficiency, unspecified; Z79.899 Other long term (current) drug therapy; Z90.79 Acquired absence of other genital organ(s); M85.9 Disorder of bone density and structure, unspecified
CPT/HCPCS: 80053; 82306; 84443; 85025; G0463; 99213

== ENCOUNTER → 2020-11-10 | Outpatient (CLI) | payer MEDICARE | LOC: ORTHO 08:49 | PROVIDERS: ATTEND Orthopaedic Surgery | DX: S63.659A Sprain of metacarpophalangeal joint of unspecified finger, initial encounter (principal); K21.9 Gastro-esophageal reflux disease without esophagitis; E03.9 Hypothyroidism, unspecified; E55.9 Vitamin D deficiency, unspecified; X58.XXXA Exposure to other specified factors, initial encounter | CPT/HCPCS: 99202 ==

== ENCOUNTER → 2021-02-15 | Outpatient (CLI) | payer MEDICARE ==
[2021-02-15 10:01] LABS: BASOPHILS # (AUTO) 0.1 10^3/uL (0.0-0.1); BASOPHILS % (AUTO) 1 % (0-10); EOSINOPHILS # (AUTO) 0.1 10^3/uL (0.0-0.3); EOSINOPHILS % (AUTO) 2 % (0-10); HEMATOCRIT 42 % (35-52); HEMOGLOBIN 12.4 g/dL (11.5-16.0); LYMPHOCYTES # (AUTO) 1.8 10^3/uL (1.0-4.0); LYMPHOCYTES % (AUTO) 27 % (12-44); MEAN CORPUSCULAR HEMOGLOBIN 26 pg (25-34); MEAN CORPUSCULAR HGB CONC 30 g/dL (32-36); MEAN CORPUSCULAR VOLUME 89 fL (80-99); MEAN PLATELET VOLUME 10.5 fL (9.0-12.2); MONOCYTES # (AUTO) 0.6 10^3/uL (0.0-1.0); MONOCYTES % (AUTO) 9 % (0-12); NEUTROPHILS % (AUTO) 61 % (42-75); PLATELET COUNT 236 10^3/uL (130-400); WHITE BLOOD COUNT 6.5 10^3/uL (4.3-11.0)
[2021-02-15 10:19] LABS: ALBUMIN 3.8 GM/DL (3.2-4.5); BILIRUBIN,TOTAL 0.5 MG/DL (0.1-1.0); CALCIUM 9.8 MG/DL (8.5-10.1); CREATININE SERUM 0.81 MG/DL (0.60-1.30); POTASSIUM 4.4 MMOL/L (3.6-5.0); TOTAL PROTEIN 7.3 GM/DL (6.4-8.2)
== END ==
LOC: ONC 09:59
PROVIDERS: ATTEND Internal Medicine Hematology & Oncology
DX: C50.511 Malignant neoplasm of lower-outer quadrant of right female breast (principal); C50.411 Malignant neoplasm of upper-outer quadrant of right female breast; C67.9 Malignant neoplasm of bladder, unspecified; C77.3 Secondary and unspecified malignant neoplasm of axilla and upper limb lymph nodes; E03.9 Hypothyroidism, unspecified; M85.80 Other specified disorders of bone density and structure, unspecified site; Z92.21 Personal history of antineoplastic chemotherapy; Z90.12 Acquired absence of left breast and nipple; Z79.811 Long term (current) use of aromatase inhibitors
CPT/HCPCS: 80053; 84443; 85025; G0463; 99213

== ENCOUNTER 2021-05-05 08:47 | Outpatient (RCR) | payer MEDICARE ==
[2021-05-03 11:11] LABS: BASOPHILS # (AUTO) 0.1 10^3/uL (0.0-0.1); BASOPHILS % (AUTO) 1 % (0-10); EOSINOPHILS # (AUTO) 0.2 10^3/uL (0.0-0.3); EOSINOPHILS % (AUTO) 2 % (0-10); HEMATOCRIT 41 % (35-52); HEMOGLOBIN 12.5 g/dL (11.5-16.0); LYMPHOCYTES # (AUTO) 1.8 10^3/uL (1.0-4.0); LYMPHOCYTES % (AUTO) 27 % (12-44); MEAN CORPUSCULAR HEMOGLOBIN 27 pg (25-34); MEAN CORPUSCULAR HGB CONC 30 g/dL (32-36); MEAN CORPUSCULAR VOLUME 89 fL (80-99); MEAN PLATELET VOLUME 10.6 fL (9.0-12.2); MONOCYTES # (AUTO) 0.6 10^3/uL (0.0-1.0); MONOCYTES % (AUTO) 8 % (0-12); NEUTROPHILS # (AUTO) 4.1 10^3/uL (1.8-7.8); NEUTROPHILS % (AUTO) 62 % (42-75); PLATELET COUNT 241 10^3/uL (130-400); WHITE BLOOD COUNT 6.6 10^3/uL (4.3-11.0)
[2021-05-03 11:40] LABS: ALBUMIN 3.8 GM/DL (3.2-4.5); BILIRUBIN,TOTAL 0.4 MG/DL (0.1-1.0); CREATININE SERUM 0.8 MG/DL (0.60-1.30); POTASSIUM 4.3 MMOL/L (3.6-5.0); TOTAL PROTEIN 7.2 GM/DL (6.4-8.2)
== END 2021-07-22 | disposition home or self-care (01) ==
LOC: ONC 08:47
PROVIDERS: ATTEND Internal Medicine Hematology & Oncology
DX: C50.512 Malignant neoplasm of lower-outer quadrant of left female breast (principal); C50.411 Malignant neoplasm of upper-outer quadrant of right female breast; C67.3 Malignant neoplasm of anterior wall of bladder; E03.9 Hypothyroidism, unspecified; E55.9 Vitamin D deficiency, unspecified; M85.80 Other specified disorders of bone density and structure, unspecified site; Z79.811 Long term (current) use of aromatase inhibitors; Z92.21 Personal history of antineoplastic chemotherapy; Z92.3 Personal history of irradiation; Z90.11 Acquired absence of right breast and nipple
CPT/HCPCS: 80053; 82306; 84443; 85025; 99213

== ENCOUNTER → 2021-05-24 | Outpatient (CLI) | payer MEDICARE ==
--- NOTE | 2021-05-24 13:23 | Diagnostic Imaging Report ---
INDICATION: Postmenopausal with history of osteopenia COMPARISON: 05/13/2019 FINDINGS: AP Spine L1-L4: [BMD (g/cm2): 0.969] [T-Score: -1.9] [Z-Score: -1.1] [BMD Previous: 1.025] [BMD % Change: -5.5] LT Hip Neck: [BMD (g/cm2): 0.730] [T-Score: -2.2] [Z-Score: -1.0] LT Hip Total: [BMD (g/cm2):0.864] [T-Score:-1.1] [Z-Score: -0.2] [BMD Previous: 0.886] [BMD % Change: -2.5] RT Hip Neck: [BMD (g/cm2):0.695] [T-Score:-2.5] [Z-Score:-1.3] RT Hip Total: [BMD (g/cm2):0.816] [T-score:-1.5] [Z-Score:-0.6] [BMD Previous:0.874] [BMD % Change:-6.6] *Indicates significant change from prior examination based on 95% confidence level. World Health Organization criteria for BMD interpretation classify patients as Normal (T-score at or above -1.0), Osteopenic (T-score between -1.0 and -2.5) or Osteoporotic (T-score at or below -2.5). LIMITATIONS AND MODIFICATION: None. FRACTURE RISK (FRAX SCORE): The ten year probability of (%): Major Osteoporotic Fracture: [15.0] Hip Fracture: [4.1] IMPRESSION: 1. Osteopenia (Low bone mass). 2. mild interval worsening 3. See below National Osteoporosis Foundation guidelines on when to potentially initiate pharmacologic therapy. Based on the National Osteoporosis Foundation Guidelines, pharmacologic treatment should be initiated in any of the following, unless clinical conditions suggest otherwise: * Any patient with prior fragility fracture of the hip or vertebrae. A spine fracture indicates 5X risk for subsequent spine fracture and 2X risk for subsequent hip fracture. * Osteoporosis (T-score <-2.5). * Postmenopausal women and men age 50 and older with low bone mass/osteopenia (T-score between -1.0 and -2.5) by DXA and 10-year major osteoporotic fracture greater than 20% or a 10-year probability of hip fracture greater than 3%. These fracture risks are supplied above in the FRAX score, if applicable. * Clinician judgement and/or patient preferences may indicate treatment for people with 10-year fracture probabilities above or below these levels. Dictated by: Dictated on workstation # [id number]
== END ==
LOC: RAD 11:19
PROVIDERS: ATTEND Internal Medicine Hematology & Oncology
DX: M85.80 Other specified disorders of bone density and structure, unspecified site (principal); C50.519 Malignant neoplasm of lower-outer quadrant of unspecified female breast; Z78.0 Asymptomatic menopausal state; Z79.811 Long term (current) use of aromatase inhibitors
CPT/HCPCS: 77080

== ENCOUNTER → 2021-09-27 | Outpatient (CLI) | payer MEDICARE ==
--- NOTE | 2021-09-27 14:24 | Diagnostic Imaging Report ---
INDICATION: Right knee pain. TIME OF EXAM: 11:47 AM Multiple views of the right knee demonstrate lateral compartmental degenerative change with joint space narrowing. There is mild spurring of the tibial spines. Articular surfaces are smooth. No fracture, dislocation or effusion is identified. IMPRESSION: Degenerative changes. No acute bony abnormality is detected. Dictated by: Dictated on workstation # [id number]
== END ==
LOC: ORTHO 10:57
PROVIDERS: ATTEND Orthopaedic Surgery
DX: M17.11 Unilateral primary osteoarthritis, right knee (principal)
CPT/HCPCS: 20610; 73564; G0463

== ENCOUNTER → 2022-02-09 | Outpatient (CLI) | payer MEDICARE ==
--- NOTE | 2022-02-09 17:11 | Diagnostic Imaging Report ---
EXAMINATION: Left foot 3 views. HISTORY: Left foot injury. COMPARISON: None available. FINDINGS: There are hammertoe deformities of the lesser toes. No fracture. No dislocation. IMPRESSION: No fracture seen in the left foot. Dictated by: Dictated on workstation # [id number]
== END ==
LOC: RAD 15:56
PROVIDERS: ATTEND Family Medicine
DX: S99.922A Unspecified injury of left foot, initial encounter (principal); X58.XXXA Exposure to other specified factors, initial encounter
CPT/HCPCS: 73630

== ENCOUNTER 2022-03-12 14:20 | Inpatient (IN) | payer MEDICARE ==
[~2022-03-12] VITALS: Ht 175.3 cm; Wt 89.1 kg
[2022-03-12] MEDS ORDERED: NS IV 1000 ML 1,000 ML IV SCH (14:45)
[2022-03-12] MEDS ORDERED: cefTRIAXone 1 GM PRE-MIX 50 ML IV ONE (14:45)
[2022-03-12] MEDS ORDERED: AZITHROMYCIN INJECTION 500 MG in NS (IVPB) 250 ML IV ONE ×2 (14:45→20:00)
--- NOTE | 2022-03-12 14:55 | ED Cough/URI ---
General Stated Complaint: COUGH,CHEST TIGHTNES,N/V,FEVER,CONGESTION Source: patient Exam Limitations: no limitations History of Present Illness Date Seen by Provider: Mar 12, 2022 Time Seen by Provider: 14:50 Initial Comments Patient presents to the ER for evaluation of shortness of breath. She states she had a bilateral eyelid lift on and then Sunday started having cough/fever, Since then her symptoms have worsened and she states today her oxygen was 80%. She is not having overt chest pain, but states she is having some chest tightness. Timing/Duration: other (Since Sunday) Severity/Quality: moderate Prior Episodes/Possible Cause: no prior episodes Allergies and Home Medications Allergies Uncoded Allergies: TAPE (Allergy, Severe, BLISTERS, 01/06/19) Patient Home Medication List Home Medication List Reviewed: Yes Cephalexin (Keflex) 500 Mg Capsule, 500 MG PO TID Prescribed by: MARIKA WILL on 05/30/19 1039 Hydrocodone Bit/Acetaminophen (Lortab 5 Mg Tablet) 1 Each Tablet, 1 TAB PO Q4H PRN for PAIN-MODERATE Prescribed by: MARIKA WILL on 05/30/19 1039 Ketoconazole (Ketoconazole) 15 Gm Cream..g., TOP BID, (Reported) Entered as Reported by: MAGGY DE LA CRUZ on 05/29/19 1043 Letrozole (Letrozole) 2.5 Mg Tablet, 2.5 MG PO DAILY, (Reported) Entered as Reported by: MAGGY DE LA CRUZ on 05/29/19 1040 Levothyroxine Sodium (Levothyroxine Sodium) 125 Mcg Tablet, 125 MCG PO DAILY, (Reported) Entered as Reported by: SERGIO GUERRA on 01/06/19 1143 Silver Sulfadiazine (Ssd) 25 Gm Cream..g., TOP BID, (Reported) Entered as Reported by: MAGGY DE LA CRUZ on 05/29/19 1043 Review of Systems Review of Systems Constitutional: fever, malaise EENTM: nose congestion Respiratory: cough, short of breath Cardiovascular: no symptoms reported Gastrointestinal: no symptoms reported Genitourinary: no symptoms reported Musculoskeletal: no symptoms reported Skin: no symptoms reported Past Amctpps-Qdeora-Tguoyh Hx Immunizations Up To Date Tetanus Booster (TDap): Unknown Seasonal Allergies Seasonal Allergies: Yes Past Medical History Surgeries: Yes Hysterectomy, Oophorectomy, Tonsillectomy Respiratory: Yes (LUNG BX 6 YRS AGO/WEARS O2 AT HS) Pneumonia, Pulmonary Embolism Currently Using CPAP: No Currently Using BIPAP: No Cardiac: No Neurological: No Reproductive Disorders: Yes ("ovary w/ 10 lbs of fluid" ) Female Reproductive Disorders: Denies Sexually Transmitted Disease: No HIV/AIDS: No Genitourinary: No Gastrointestinal: No Gastroesophageal Reflux Musculoskeletal: No Endocrine: Yes Hypothyroidsim HEENT: Yes (READING GLASSES) Cataract Cancer: Yes Breast Did You Recieve Any Treatments: Yes What Type of Treatment Did You: Chemotherapy, Surgical Intervention Psychosocial: No Integumentary: No Blood Disorders: No Adverse Reaction/Blood Tranf: No (N/A) Family Medical History Diabetes mellitus 19 MOTHER G8 BROTHER G8 SISTER Myocardial infarction 19 MOTHER Physical Exam Vital Signs - First Documented 03/12/22 14:28 Temp 37.7 Pulse 108 Resp 22 B/P (MAP) 140/82 (101) Pulse Ox 95 O2 Delivery Nasal Cannula O2 Flow Rate 2.00 Capillary Refill : Height: 5'9.00" Weight: 215lbs. 6.0oz. 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, oriented x 3 Skin: normal color, warm/dry Focused Exam Lactate Level 03/12/22 15:53: Lactic Acid Level 0.87 Lactic Acid Level Laboratory Tests Test 03/12/22 15:53 Lactic Acid Level 0.87 MMOL/L (0.50-2.00) Progress/Results/Core Measures Suspected Sepsis SIRS Temperature: Pulse: Respiratory Rate: Laboratory Tests 03/12/22 15:45: White Blood Count 9.7 Blood Pressure / Mean: 03/12/22 15:53: Lactic Acid Level 0.87 Laboratory Tests 03/12/22 15:45: Platelet Count 153 03/12/22 15:53: Creatinine 0.52L, INR Comment 1.3, Total Bilirubin 0.2 Results/Orders Lab Results Laboratory Tests Test 03/12/22 14:50 03/12/22 15:45 03/12/22 15:53 Range/Units Influenza Type A (RT-PCR) Not Detected Not Detecte Influenza Type B (RT-PCR) Not Detected Not Detecte SARS-CoV-2 RNA (RT-PCR) Not Detected Not Detecte White Blood Count 9.7 4.3-11.0 10^3/uL Red Blood Count 2.94 L 3.80-5.11 10^6/uL Hemoglobin 8.0 L 11.5-16.0 g/dL Hematocrit 27 L 35-52 % Mean Corpuscular Volume 91 80-99 fL Mean Corpuscular Hemoglobin 27 25-34 pg Mean Corpuscular Hemoglobin Concent 30 L 32-36 g/dL Red Cell Distribution Width 14.0 10.0-14.5 % Platelet Count 153 130-400 10^3/uL Mean Platelet Volume 10.9 9.0-12.2 fL Immature Granulocyte % (Auto) 1 % Neutrophils (%) (Auto) 82 H 42-75 % Lymphocytes (%) (Auto) 8 L 12-44 % Monocytes (%) (Auto) 9 0-12 % Eosinophils (%) (Auto) 0 0-10 % Basophils (%) (Auto) 0 0-10 % Neutrophils # (Auto) 8.0 H 1.8-7.8 10^3/uL Lymphocytes # (Auto) 0.8 L 1.0-4.0 10^3/uL Monocytes # (Auto) 0.8 0.0-1.0 10^3/uL Eosinophils # (Auto) 0.0 0.0-0.3 10^3/uL Basophils # (Auto) 0.0 0.0-0.1 10^3/uL Immature Granulocyte # (Auto) 0.1 0.0-0.1 10^3/uL Neutrophils % (Manual) 86 % Lymphocytes % (Manual) 9 % Monocytes % (Manual) 4 % Basophils % (Manual) 1 % Beaver Cells SLIGHT Prothrombin Time 16.7 H 12.2-14.7 SEC INR Comment 1.3 0.8-1.4 Activated Partial Thromboplast Time 29 24-35 SEC D-Dimer 0.43 0.00-0.49 UG/ML Sodium Level 142 135-145 MMOL/L Potassium Level 2.5 *L 3.6-5.0 MMOL/L Chloride Level 115 H 98-107 MMOL/L Carbon Dioxide Level 20 L 21-32 MMOL/L Anion Gap 7 5-14 MMOL/L Blood Urea Nitrogen 11 7-18 MG/DL Creatinine 0.52 L 0.60-1.30 MG/DL Estimat Glomerular Filtration Rate 98 BUN/Creatinine Ratio 21 Glucose Level 86 70-105 MG/DL Lactic Acid Level 0.87 0.50-2.00 MMOL/L Calcium Level 5.4 *L 8.5-10.1 MG/DL Corrected Calcium 7.0 L 8.5-10.1 MG/DL Total Bilirubin 0.2 0.1-1.0 MG/DL Aspartate Amino Transf (AST/SGOT) 7 5-34 U/L Alanine Aminotransferase (ALT/SGPT) < 6 0-55 U/L Alkaline Phosphatase 38 L 40-136 U/L Troponin I < 0.028 <0.028 NG/ML Total Protein 3.9 L 6.4-8.2 GM/DL Albumin 2.0 L 3.2-4.5 GM/DL My Orders Orders - KURT LOYA Covid 19 Inhouse Test (03/12/22 14:32) Influenza A And B By Pcr (03/12/22 14:32) Isolation Central Supply Req (03/12/22 14:32) Cbc With Automated Diff (03/12/22 14:41) Comprehensive Metabolic Panel (03/12/22 14:41) Blood Culture (03/12/22 14:41) Sputum Culture (03/12/22 14:41) Protime With Inr (03/12/22 14:41) Partial Thromboplastin Time (03/12/22 14:41) Chest 1 View, Ap/Pa Only (03/12/22 14:41) Ed Iv/Invasive Line Start (03/12/22 14:41) Ekg Tracing (03/12/22 14:41) Troponin I Stephenson (03/12/22 14:41) Vital Signs Adult Sepsis Patie Q15M (03/12/22 14:41) O2 (03/12/22 14:41) Remove Rings In Anticipation O (03/12/22 14:41) Lactic Acid Analyzer (03/12/22 14:41) Ns Iv 1000 Ml (Sodium Chloride 0.9%) (03/12/22 14:45) Ceftriaxone 1 Gm Pre-Mix (Rocephin 1 Gm (03/12/22 14:45) Azithromycin Injection (Zithromax Inject (03/12/22 14:45) Fibrin Degradation Products (03/12/22 14:41) Manual Differential (03/12/22 15:45) Potassium Chloride (Tablet) (K Dur Table (03/12/22 16:45) Potassium Cl 10meq/50ml Ivpb (Kcl 10 Meq (03/12/22 16:45) Arterial Blood Gas (03/12/22 17:26) Medications Given in ED Current Medications Medications Dose Ordered Sig/Yolande Route Start Time Stop Time Status Last Admin Dose Admin Azithromycin 500 mg/Sodium Chloride 255 ml @ 250 mls/hr ONCE ONCE IV 03/12/22 14:45 03/12/22 15:46 DC 03/12/22 15:14 250 MLS/HR Ceftriaxone Sodium/Dextrose 50 ml @ 100 mls/hr ONCE ONCE IV 03/12/22 14:45 03/12/22 15:14 DC 03/12/22 15:14 100 MLS/HR Vital Signs/I&O 03/12/22 03/12/22 14:28 14:30 Temp 37.7 Pulse 108 Resp 22 B/P (MAP) 140/82 (101) Pulse Ox 95 95 O2 Delivery Nasal Cannula Nasal Cannula O2 Flow Rate 2.00 2.00 Capillary Refill : Departure Communication (Admissions) Time/Spoke to Admitting Phy: 17:[address] Hoffman and she would like the patient admitted to the cardiac step down unit. She would also like an ABG drawn. Patient presented to the emergency room for shortness of breath. She was hypoxic on presentation and was immediately placed on supplemental oxygen. Lab work showed significant hypokalemia and chest x-ray shows a left-sided pneumo ovidio. We started the patient on Rocephin, azithromycin and potassium replacement. We will obtain an ABG. Patient will be admitted to cardiac stepdown to Dr. Hoffman. Impression Primary Impression: Pneumonia Additional Impressions: Hypoxia Hypokalemia Disposition: ADMITTED INPATIENT Condition: Stable Admissions Decision to Admit Reason: Admit from ER (General) Decision to Admit/Date: Mar 12, 2022 Time/Decision to Admit Time: 17:30 Departure-Patient Inst. Referrals: ZHENG SOLANO MD (PCP/Family) Primary Care Physician KURT LOYA Mar 12, 2022 14:55
--- NOTE | 2022-03-12 15:38 | Diagnostic Imaging Report ---
INDICATION: Hypoxia. TIME OF EXAM: 3:22 PM. COMPARISON: Correlation is made with prior chest from 12/16/2014. Heart size is normal. There appears to be some patchy airspace infiltrate in left mid and lower lung dawn suggestive of pneumonia. Right lung is clear. No effusion or pneumothorax is identified. IMPRESSION: Left basilar pneumonia. Dictated by: Dictated on workstation # [id number]
[2022-03-12 16:08] LABS: BASOPHILS % (AUTO) 0 % (0-10); EOSINOPHILS % (AUTO) 0 % (0-10); HEMATOCRIT 27 % (35-52); LYMPHOCYTES # (AUTO) 0.8 10^3/uL (1.0-4.0); LYMPHOCYTES % (AUTO) 8 % (12-44); MEAN CORPUSCULAR HEMOGLOBIN 27 pg (25-34); MEAN CORPUSCULAR HGB CONC 30 g/dL (32-36); MEAN CORPUSCULAR VOLUME 91 fL (80-99); MEAN PLATELET VOLUME 10.9 fL (9.0-12.2); MONOCYTES # (AUTO) 0.8 10^3/uL (0.0-1.0); MONOCYTES % (AUTO) 9 % (0-12); NEUTROPHILS % (AUTO) 82 % (42-75); PLATELET COUNT 153 10^3/uL (130-400); WHITE BLOOD COUNT 9.7 10^3/uL (4.3-11.0)
[2022-03-12 16:19] LABS: CHLORIDE 115 MMOL/L (98-107); SODIUM 142 MMOL/L (135-145)
[2022-03-12 16:21] LABS: GLUCOSE 86 MG/DL (70-105); TOTAL PROTEIN 3.9 GM/DL (6.4-8.2)
[2022-03-12 16:22] LABS: CARBON DIOXIDE 20 MMOL/L (21-32)
[2022-03-12 16:23] LABS: BILIRUBIN,TOTAL 0.2 MG/DL (0.1-1.0)
[2022-03-12 16:24] LABS: ALKALINE PHOSPHATASE 38 U/L (40-136)
[2022-03-12 16:25] LABS: CREATININE SERUM 0.52 MG/DL (0.60-1.30); GFR ESTIMATED 98
[2022-03-12 16:26] LABS: BUN/CREATININE RATIO 21
[2022-03-12 16:27] LABS: ALANINE AMINOTRANSFERASE < 6 U/L (0-55)
[2022-03-12 16:32] LABS: CALCIUM 5.4 MG/DL (8.5-10.1); POTASSIUM 2.5 MMOL/L (3.6-5.0)
[2022-03-12 16:34] LABS: FIBRIN DEGRADATION PRODUCTS 0.43 UG/ML (0.00-0.49); INR 1.3 (0.8-1.4); PROTHROMBIN TIME PATIENT 16.7 SEC (12.2-14.7)
[2022-03-12] MEDS ORDERED: POTASSIUM CL 10MEQ/50ML IVPB 50 ML IV ONE (16:45)
[2022-03-12] MEDS ORDERED: KCL 20 MEQ TAB (K-DUR) PO ONE (16:45)
[2022-03-12 16:57] LABS: BASOPHILS % (MANUAL) 1 %; BURR CELLS SLIGHT; LYMPHOCYTES % (MANUAL) 9 %; MONOCYTES % (MANUAL) 4 %; NEUTROPHILS % (MANUAL) 86 %
[2022-03-12] MEDS ORDERED: NS IV 500 ML 500 ML ONE (18:58)
[2022-03-12 19:52] VITALS: BP 149/59
[2022-03-12] MEDS ORDERED: diphenhydrAMINE 50 MG/ML INJ (BENADRYL) IVP PRN (20:00)
[2022-03-12] MEDS ORDERED: LACTULOSE SYRUP 10GM/15ML (ENULOSE) 30ML UDC PO PRN (20:00)
[2022-03-12] MEDS ORDERED: ANTACID SUSP 30 ML UDC (MYLANTA) PO PRN (20:00)
[2022-03-12] MEDS ORDERED: ACETAMINOPHEN 325 MG TABLET PO PRN (20:00)
[2022-03-12] MEDS ORDERED: diphenhydrAMINE 25 MG TAB (BENADRYL) PO PRN (20:00)
[2022-03-12] MEDS ORDERED: ONDANSETRON 4 MG (ZOFRAN) ORAL DISSOLVE TAB PO PRN (20:00)
[2022-03-12] MEDS ORDERED: guaiFENesin/CODEINE (ROBITUSSIN AC) 10ML UDC PO PRN (20:00)
[2022-03-12] MEDS ORDERED: polyethylene glycoL POWDER 17 GM (MIRALAX) PACK PO PRN (20:00)
[2022-03-12] MEDS ORDERED: ONDANSETRON 4 MG/2 ML (SDV) Z0FRAN IV PRN (20:00)
[2022-03-12] MEDS ORDERED: MELATONIN 3 MG TABLET PO PRN (20:00)
[2022-03-12] MEDS ORDERED: NALOXONE 0.4 MG/ML 1 ML (NARCAN) VIAL IV PRN (20:00)
[2022-03-12] MEDS ORDERED: BISACODYL 10 MG SUPP (DULCOLAX) PR PRN (20:00)
[2022-03-12] MEDS ORDERED: MILK OF MAGNESIA 400 MG/5 ML 30 ML UDC PO PRN (20:00)
[2022-03-12 21:48] VITALS: BP 151/81
[2022-03-12] MEDS: MAGNESIUM 1 GM/100 ML IVPB 100 ML IV SCH (23:01)
[2022-03-12] MEDS: POTASSIUM CL 10MEQ/50ML IVPB 50 ML IV SCH (23:05)
[2022-03-12] MEDS: SENNOSIDES 8.6 MG (SENOKOT) TAB PO SCH (23:08)
[2022-03-12] MEDS: DOCUSATE SODIUM 100 MG (COLACE) CAP PO SCH (23:08)
[2022-03-12] MEDS: CALCIUM CARBONATE 500 MG (TUMS) TAB.CHEW PO SCH (23:08)
[2022-03-12] MEDS: BENZONATATE 100 MG (TESSALON) CAPSULE PO SCH (23:09)
[2022-03-12] MEDS: ENOXAPARIN 40 MG/0.4 ML (LOVENOX) SYR SC SCH (23:09)
[2022-03-12] MEDS: CALC GLUC 1 GM/100 ML IVPB 100 ML IV SCH (23:19)
[2022-03-13] MEDS ORDERED: MAGNESIUM 1 GM/100 ML IVPB 100 ML IV ONE (00:55)
[2022-03-13] MEDS: MAGNESIUM 1 GM/100 ML IVPB 100 ML IV SCH (00:57)
[2022-03-13] MEDS: POTASSIUM CL 10MEQ/50ML IVPB 50 ML IV SCH ×6 (00:57→12:00)
[2022-03-13 01:05] VITALS: BP 135/50
[2022-03-13] MEDS: RT-ALBUTEROL/IPRATROPIUM 3 ML (DUONEB) VIAL INH SCH ×4 (02:16→17:13)
[2022-03-13 04:00] VITALS: BP 139/82
[2022-03-13] MEDS ORDERED: NS IV 500 ML 500 ML ONE (04:56)
[2022-03-13] MEDS ORDERED: POTASSIUM CL 10MEQ/50ML IVPB 50 ML IV ONE (06:27)
--- NOTE | 2022-03-13 07:48 | History & Physicial ---
History of Present Illness History of Present Illness Reason for visit/HPI 72-year-old female presents to [facility] emergency department during the afternoon of March 12, 2022 with reported shortness of breath as well as cough and fever. She had surgery to her eyelids on March 09 since they were drooping down and it was making it difficult for her to see. Her symptomatology started basically the day after. In the emergency department she was noted to have some chest tightness but troponin was negative Date of Admission Mar 12, 2022 at 18:39 Date Seen by a Provider: Mar 13, 2022 Time Seen by a Provider: 07:10 I consulted on this patient on 03/13/22 07:44 Attending Physician Kj Solano MD Admitting Physician Admitting Physician: Jen Galeano DO Attending Physician: Jen Gaelano DO Consult Allergies and Home Medications Allergies Uncoded Allergies: TAPE (Allergy, Severe, BLISTERS, 01/06/19) Patient Home Medication List Home Medication List Reviewed: Yes Cephalexin (Keflex) 500 Mg Capsule, 500 MG PO TID Prescribed by: MARIKA WILL on 05/30/19 1039 Hydrocodone Bit/Acetaminophen (Lortab 5 Mg Tablet) 1 Each Tablet, 1 TAB PO Q4H PRN for PAIN-MODERATE Prescribed by: MARIKA WILL on 05/30/19 1039 Ketoconazole (Ketoconazole) 15 Gm Cream..g., TOP BID, (Reported) Entered as Reported by: MAGGY DE LA CRUZ on 05/29/19 1043 Letrozole (Letrozole) 2.5 Mg Tablet, 2.5 MG PO DAILY, (Reported) Entered as Reported by: MAGGY DE LA CRUZ on 05/29/19 1040 Levothyroxine Sodium (Levothyroxine Sodium) 125 Mcg Tablet, 125 MCG PO DAILY, (Reported) Entered as Reported by: SERGIO GUERRA on 01/06/19 1143 Silver Sulfadiazine (Ssd) 25 Gm Cream..g., TOP BID, (Reported) Entered as Reported by: MAGGY DE LA CRUZ on 05/29/19 1043 Past Boqklvq-Nikzby-Lalvsl Hx Patient Social History Marrital Status: Employed/Student: retired Smoking Status: Former Smoker Former Smoker, Quit: Jan 06, 2009 2nd Hand Smoke Exposure: Yes Recent Hopitalizations: No Have you traveled recently?: No Alcohol Use?: No Pt feels they are or have been: No Immunizations Up To Date Tetanus Booster (TDap): Unknown Date of Pneumonia Vaccine: Sep 07, 2017 Date of Influenza Vaccine: Apr 29, 2018 Seasonal Allergies Seasonal Allergies: Yes Surgeries Yes Hysterectomy, Oophorectomy, Tonsillectomy Respiratory Yes (LUNG BX 6 YRS AGO/WEARS O2 AT HS) Currently Using CPAP: No Currently Using BIPAP: No Cardiovascular No Neurological No Reproductive System Hx Reproductive Disorders: Yes ("ovary w/ 10 lbs of fluid" ) Sexually Transmitted Disease: No HIV/AIDS: No Female Reproductive Disorders: Denies Genitourinary No Gastrointestinal No Gastroesophageal Reflux Musculoskeletal No Endocrine History of Endocrine Disorders: Yes Endocrine Disorders: Hypothyroidsim HEENT History of HEENT Disorders: Yes (READING GLASSES) HEENT Disorders: Cataract Cancer Yes Breast Did You Recieve Any Treatments: Yes Type of Treatment: Chemotherapy, Surgical Intervention Psychosocial History of Psychiatric Problem: No Integumentary History of Skin or Integumenta: No Blood Transfusions History of Blood Disorders: No Adverse Reaction to a Blood Tr: No (N/A) Family Medical History Family Hx: Diabetes mellitus 19 MOTHER G8 BROTHER G8 SISTER Myocardial infarction 19 MOTHER Review of Systems Constitutional: see HPI Physical Exam Vital Signs Vital Signs - First Documented 03/12/22 03/12/22 14:28 21:07 Temp 37.7 Pulse 108 Resp 22 B/P (MAP) 140/82 (101) Pulse Ox 95 O2 Delivery Nasal Cannula O2 Flow Rate 2.00 FiO2 28 Capillary Refill : Less Than 3 Seconds Height, Weight, BMI Height: 5'9.00" Weight: 215lbs. 6.0oz. 97.308346qt; 28.34 BMI Method: General Appearance: No Apparent Distress Eyes: Bilateral Eye Normal Inspection HEENT: Pharynx Normal Neck: Supple Respiratory: Decreased Breath Sounds (in bases), Rales (in base) Cardiovascular: Regular Rate, Rhythm Gastrointestinal: Soft Rectal: Deferred Neurologic/Psychiatric: Oriented x3 Skin: Normal Color Comments [facility] [place], [place] NAME: SHAJI MUNOZ NATASHA REC#: [id number] PT STATUS: REG ER : 1950 PHYSICIAN: KURT LOYA ADMIT DATE: 03/12/22/ER Signed Date of Exam:03/12/22 CHEST 1 VIEW, AP/PA ONLY INDICATION: Hypoxia. TIME OF EXAM: 3:22 PM. COMPARISON: Correlation is made with prior chest from 12/16/2014. Heart size is normal. There appears to be some patchy airspace infiltrate in left mid and lower lung dawn suggestive of pneumonia. Right lung is clear. No effusion or pneumothorax is identified. IMPRESSION: Left basilar pneumonia. Dictated by: Dictated on workstation # [id number] Dict: 03/12/22 1536 Trans: 03/12/22 1543 [id number] Interpreted by: YUSUF MARTINEZ MD Electronically signed by: YUSUF MARTINEZ MD 03/12/22 1543 Assessment/Plan Assessment and Plan 1. Left lower lobe pneumonia -patient has been initiated on IV ceftriaxone as well as IV Zithromax -Albuterol treatments initiated 2. Anemia -Patient does not appear to be symptomatic from the anemia. We will await to see what the results from hemoglobin are today. 3. Hypokalemia -replacement 4. Hypomagnesemia -monitor and replace 5. Hypocalcemic -Monitoring and replace 6. History of L breast cancer/mastectomy 2014 -She is currently on Letrozole 2.5 mg daily. 7. Hypothyroidismknown -Currently on levothyroxine 0.125 mg daily Admission Diagnosis 1. Left lower lobe pneumonia 2. Anemia 3. Hypokalemia 4. Hypomagnesemia 5. Hypocalcemic 6. History of L breast cancer/mastectomy 2014 Admission Status: Inpatient Order (span 2 midnights) Reason for Inpatient Admission: initiation of IV antibiotics ceftriaxone as well as Zithromax. Pulmonary toilet. Monitoring hemoglobin KJ SOLANO MD Mar 13, 2022 07:48
[2022-03-13 08:00] VITALS: BP 157/64
--- NOTE | 2022-03-13 08:16 | Diagnostic Imaging Report ---
Indication: Pneumonia. Time of Exam: 6:20 AM Comparison is made with prior chest from one day earlier. Heart size normal. There is a new infiltrate in the right upper lobe. There is some increasing infiltrate left basilar region. No significant effusion is seen. There is no pneumothorax. Impression: Worsening infiltrates bilaterally when compared with exam one day earlier. Dictated by: Dictated on workstation # [id number]
[2022-03-13] MEDS: KCL 10 MEQ TAB (MICRO K) PO SCH ×2 (08:42→18:30)
[2022-03-13] MEDS: CALCIUM CARBONATE 500 MG (TUMS) TAB.CHEW PO SCH ×5 (08:42→21:04)
[2022-03-13] MEDS: CALC GLUC 1 GM/100 ML IVPB 100 ML IV SCH ×2 (08:43→20:30)
[2022-03-13] MEDS: AZITHROMYCIN 250 MG TAB (ZITHROMAX) PO SCH (08:43)
[2022-03-13] MEDS: BENZONATATE 100 MG (TESSALON) CAPSULE PO SCH ×3 (08:43→21:05)
[2022-03-13] MEDS: DOCUSATE SODIUM 100 MG (COLACE) CAP PO SCH ×2 (09:00→20:56)
[2022-03-13] MEDS: SENNOSIDES 8.6 MG (SENOKOT) TAB PO SCH ×2 (09:00→20:56)
--- NOTE | 2022-03-13 10:04 | Physical Therapy Evaluation ---
PT Evaluation-General Medical Diagnosis Admission Date Mar 12, 2022 at 18:39 Medical Diagnosis: hypokalemia/hypoxia/pneumonia Onset Date: Mar 12, 2022 Therapy Diagnosis Therapy Diagnosis: debility/weakness/impaired mobility Height/Weight Height (Feet): 5 Height (Inches): 9.00 Weight (Pounds): 215 Weight (Ounces): 6.0 Precautions Precautions/Isolations: Standard Precautions Referral Physician: Froylan Reason for Referral: Evaluation/Treatment Medical History Pertinent Medical History: Hypothroidism Additional Medical History breast cancer/PE Current History ER secondary to SOA (s/p bilateral eye lift 03/09/22) Reviewed History: Yes Social History Home: Single Level Current Living Status: Spouse Entry Into Home: Stairs With Railing PT Steps Into Home: 4 Prior Prior Level of Function SCALE: Activities may be completed with or without assistive devices. 4-Qihnuhorpm-bwwhqec completes the activity by him/herself with no assistance from a helper. 5-Set-up or Clean-up Assistance-helper sets up or cleans up; patient completes activity. [place] assists only prior to or following the activity. 4-Supervision or Touching Assistance-helper provides verbal cues and/or touching/steadying and/or contact guard assistance as patient completes activity. Assistance may be provided throughout the activity or intermittently. 3-Partial/Moderate Assistance-helper does LESS THAN HALF the effort. [place] lifts, holds or supports trunk or limbs, but provides less than half the effort. 2-Substantial/Maximal Assistance-helper does MORE THAN HALF the effort. [place] lifts or holds trunk or limbs and provides more than half the effort. 8-Cxxpgzokh-aldmyo does ALL the effort. Patient does none of the effort to complete the activity. Or, the assistance of 2 or more helpers is required for the patient to complete the activity. If activity was not attempted, code reason: 7-Patient Refused. 9-Not Applicable-not attempted and the patient did not perform the activity before the current illness, exacerbation or injury. 10-Not Attempted due to Environmental Limitations-(lack of equipment, weather restraints, etc.). 88-Not Attempted due to Medical Conditions or Safety Concerns. Bed Mobility: 6 Transfers (B,C,W/C): 6 Gait: 6 Stairs: 6 Indoor Mobility (Ambulation): Independent Stairs: Independent Prior Devices Use: None PT Evaluation-Current Subjective Patient reluctantly agrees to PT. She reports she is very tired. Objective Patient Orientation: Normal For Age Attachments: Oxygen, IV ROM/Strength ROM Lower Extremities bilateral LE WFL Strength Lower Extremities 3/5 grossly bilateral LE all planes Integumentary/Posture Bowel Incontinence: No Bladder Incontinence: No Posture WFL Neuromuscular (Tone, Coordination, Reflexes) grossly intact Sensory Vision: Functional Hearing: Functional Transfers Roll Left to Right (QC): 6 Lying to Sitting/Side of Bed(Q: 3 Sit to Stand (QC): 3 Chair/Opf-vc-Ykein Xfer(QC): 3 Toilet Transfer (QC): 3 Gait Does the Patient Walk?: Yes Mode of Locomotion: Walk Anticipated Mode of Locomotion: Walk Walk 10 feet (QC): 3 Walk 50 ft with 2 Turns(QC): 88 Walk 150 ft (QC): 8 Distance: 10' x 2 Gait Assistive Device: FWW Comments/Gait Description slow, steady gait sequence Balance Sitting Static: Normal Sitting Dynamic: Normal Standing Static: Fair Standing Dynamic: Fair Assessment/Needs 72 y.o. female, will benefit from skilled PT to address functional strength and mobility to improve current LOF. Patient is extremely weak and tolerates minimal activity at this time. Rehab Potential: Fair PT Penitentiary Goals Penitentiary Goals PT Penitentiary Goals Time Frame: Mar 25, 2022 Roll Left & Right (QC): 6 Sit to Lying (QC): 6 Lying-Sitting on Side/Bed(QC): 6 Sit to Stand (QC): 6 Chair/Rkh-lf-Vzowp Xfer(QC): 6 Toilet Transfer (QC): 6 Walk 10 feet (QC): 6 Walk 50ft with 2 Turns (QC): 6 Walk 150 ft (QC): 6 1 Step (curb) (QC): 6 4 Steps (QC): 6 PT Plan Problem List Problem List: Activity Tolerance, Functional Strength, Safety, Balance, Gait, Transfer, Bed Mobility Treatment/Plan Treatment Plan: Continue Plan of Care Treatment Plan: Bed Mobility, Education, Functional Activity Myron, Functional Strength, Gait, Safety, Therapeutic Exercise, Transfers Treatment Duration: Mar 25, 2022 Frequency: 6 times per week Estimated Hrs Per Day: .25 hour per day Patient and/or Family Agrees t: Yes Time/GCodes Time In: 750 Time Out: 811 Total Billed Treatment Time: 21 [facility] DAYA [facility] Mar 13, 2022 10:04
[2022-03-13 10:24] LABS: BASOPHILS % (AUTO) 0 % (0-10); EOSINOPHILS % (AUTO) 0 % (0-10); HEMATOCRIT 37 % (35-52); HEMOGLOBIN 11.4 g/dL (11.5-16.0); LYMPHOCYTES % (AUTO) 9 % (12-44); MEAN CORPUSCULAR HEMOGLOBIN 27 pg (25-34); MEAN CORPUSCULAR HGB CONC 31 g/dL (32-36); MEAN CORPUSCULAR VOLUME 89 fL (80-99); MEAN PLATELET VOLUME 10.9 fL (9.0-12.2); MONOCYTES # (AUTO) 0.9 10^3/uL (0.0-1.0); MONOCYTES % (AUTO) 8 % (0-12); NEUTROPHILS # (AUTO) 9.3 10^3/uL (1.8-7.8); NEUTROPHILS % (AUTO) 82 % (42-75); PLATELET COUNT 233 10^3/uL (130-400); WHITE BLOOD COUNT 11.3 10^3/uL (4.3-11.0)
[2022-03-13 10:41] LABS: ALBUMIN 3.5 GM/DL (3.2-4.5); BILIRUBIN,TOTAL 0.4 MG/DL (0.1-1.0); CALCIUM 9.9 MG/DL (8.5-10.1); CREATININE SERUM 0.73 MG/DL (0.60-1.30); POTASSIUM 5.5 MMOL/L (3.6-5.0); TOTAL PROTEIN 6.9 GM/DL (6.4-8.2)
[2022-03-13] MEDS ORDERED: LEVO75TA6 PO (11:06)
[2022-03-13] MEDS ORDERED: TERB250T88 PO (11:06)
[2022-03-13] MEDS ORDERED: FISH1CAP15 PO (11:06)
[2022-03-13] MEDS ORDERED: IBUP-30 PO (11:06)
[2022-03-13] MEDS ORDERED: CHOL10007 PO (11:06)
[2022-03-13] MEDS ORDERED: ERYT1OIN6 OP (11:06)
[2022-03-13] MEDS ORDERED: ACET-2267 PO (11:06)
--- NOTE | 2022-03-13 12:10 | Occupational Therapy Eval ---
OT Evaluation-General/PLF Medical Diagnosis Admission Date Mar 12, 2022 at 18:39 Medical Diagnosis: hypokalemia/hypoxia/pneumonia Onset Date: Mar 12, 2022 Therapy Diagnosis Therapy Diagnosis: reduced adl status Height/Weight Height (Feet): 5 Height (Inches): 9.00 Weight (Pounds): 215 Weight (Ounces): 6.0 Precautions Precautions/Isolations: Fall Prevention, Standard Precautions Referral Physician: Froylan Referral Reason: Evaluation/Treatment Medical History Pertinent Medical History: Hypothroidism Additional Medical History breast cancer, PE, supplemental oxygen at night. Current History Pt presented to ER with c/o SOA, cough and a fever. Currently S/p bilateral eye lift on 03/09/22. Found to have hypokalemia Per patient, she lives in a single story home with her spouse. She was indep with adls and her spouse completes all the iadls. She was not using any AD at baseline. Reviewed History: Yes Social History Home: Single Level Current Living Status: Spouse Entry Into Home: Stairs With Railing Steps Into Home: 4 ADL-Prior Level of Function SCALE: Activities may be completed with or without assistive devices. 9-Ygarorkpea-fywkdoq completes the activity by him/herself with no assistance from a helper. 5-Set-up or Clean-up Assistance-helper sets up or cleans up; patient completes activity. [place] assists only prior to or following the activity. 4-Supervision or Touching Assistance-helper provides verbal cues and/or touching/steadying and/or contact guard assistance as patient completes activity. Assistance may be provided throughout the activity or intermittently. 3-Partial/Moderate Assistance-helper does LESS THAN HALF the effort. Joice lifts, holds or supports trunk or limbs, but provides less than half the effort. 2-Substantial/Maximal Assistance-helper does MORE THAN HALF the effort. Joice lifts or holds trunk or limbs and provides more than half the effort. 1-Ecxpudhct-xqxvev does ALL the effort. Patient does none of the effort to complete the activity. Or, the assistance of 2 or more helpers is required for the patient to complete the activity. If activity was not attempted, code reason: 7-Patient Refused. 9-Not Applicable-not attempted and the patient did not perform the activity before the current illness, exacerbation or injury. 10-Not Attempted due to Environmental Limitations-(lack of equipment, weather restraints, etc.). 88-Not Attempted due to Medical Conditions or Safety Concerns. Self Care: Independent Functional Cognition: Unknown DME/Equipment: Bath Chair, Grab Bars, Shower Drive Self: No OT Current Status Subjective Pt reports significant fatigue, reluctant to participate. Appearance Pt returned to sitting in recliner, all needs within reach. Mental Status/Objective Patient Orientation: Person, Confused, Situation Attachments: IV, Oxygen, Telemetry Current Glasses/Contacts: Yes Upper Extremity ROM bilateral shoulders: ~150 degrees Elbow-distally: WNL Upper Extremity Strength 3/5 grossly, debilitated. ADL-Treatment Lower Body Dressing (QC): 3 (per clinical judgment) On/Off Footwear (QC): 4 Pt sitting in recliner at OT arrival. She reports confusion on where she is at (she knows she is in a hospital, but questions if she has moved rooms). She was able to easily demonstrate figure 4 method when threading LB clothing/socks over feet. Heavy mod a to stand; significant lifting boost. Min a once standing, yet relies heavily on UE support to maintain balance. Thus, anticipate assist will be needed for functional standing activities such as clothing management at this time. Poor standing tolerance, quickly returns to sitting. Education OT Patient Education: Correct positioning, Progress toward Goal/Update tx plan, Purpose of tx/functional activities, Safety issues, Transfer techniques Teaching Recipient: Patient Teaching Methods: Discussion Response to Teaching: Verbalize Understanding, Reinforcement Needed OT Mcfp Goals Hedis Review Nurse Goals Time Frame: Mar 27, 2022 Eating (QC): 5 Oral Hygiene (QC): 5 Toileting Hygiene (QC): 4 Shower/Bathe Self (QC): 4 Upper Body Dressing (QC): 4 Lower Body Dressing (QC): 4 On/Off Footwear (QC): 5 1=Demonstrate adherence to instructed precautions during ADL tasks. 2=Patient will verbalize/demonstrate understanding of assistive devices/modifications for ADL. 3=Patient will improve strength/tolerance for activity to enable patient to perform ADL's. OT Education/Plan Problem List/Assessment Assessment: Decreased Activ Tolerance, Decreased Safety Aware, Decreased UE Strength, Dependent Transfers, Impaired Cognition, Impaired Funct Balance, Impaired Self-Care Skills, Restricted Funct UE ROM Discharge Recommendations Plan/Recommendations: Continue POC Therapy Discharge Recommendati: Post Acute OT Treatment Plan/Plan of Care Treatment,Training & Education: Yes Patient would benefit from OT for education, treatment and training to promote independence in ADL's, mobility, safety and/or upper extremity function for ADL's. Plan of Care: ADL Retraining, Cognitive Retraining, Functional Mobility, Group Exercise/Act as Ind, UE Funct Exercise/Act Treatment Duration: Mar 27, 2022 Frequency: 3 times per week (3-5x/week) Estimated Hrs Per Day: .25 hour per day Agreement: Yes Rehab Potential: Fair Time/GCodes Start Time: 11:50 Stop Time: 12:03 Total Time Billed (hr/min): 13 Billed Treatment Time 1 visit Duyen Zamora OT Mar 13, 2022 12:10
[2022-03-13] MEDS ORDERED: cefTRIAXone 1 GM PRE-MIX 50 ML IV SCH (16:00)
[2022-03-13] MEDS: cefTRIAXone 1,000 MG VIAL IM SCH (19:10)
[2022-03-13] MEDS: LIDOCAINE 1% INJ 20 ML VIAL INJ SCH (19:10)
[2022-03-13 20:00] VITALS: BP 146/60
[2022-03-13] MEDS: ENOXAPARIN 40 MG/0.4 ML (LOVENOX) SYR SC SCH (20:56)
[2022-03-13] MEDS: LETROZOLE 2.5 MG (FEMARA) TAB PO SCH (21:05)
[2022-03-14] VITALS (7 sets, daily range): BP systolic 120–165; BP diastolic 46–69
[2022-03-14] MEDS: RT-ALBUTEROL/IPRATROPIUM 3 ML (DUONEB) VIAL INH SCH ×4 (02:54→21:49)
[2022-03-14 06:11] LABS: BASOPHILS % (AUTO) 0 % (0-10); EOSINOPHILS % (AUTO) 0 % (0-10); HEMATOCRIT 37 % (35-52); HEMOGLOBIN 11.1 g/dL (11.5-16.0); LYMPHOCYTES # (AUTO) 1.2 10^3/uL (1.0-4.0); LYMPHOCYTES % (AUTO) 13 % (12-44); MEAN CORPUSCULAR HEMOGLOBIN 27 pg (25-34); MEAN CORPUSCULAR HGB CONC 30 g/dL (32-36); MEAN CORPUSCULAR VOLUME 90 fL (80-99); MEAN PLATELET VOLUME 12.6 fL (9.0-12.2); MONOCYTES % (AUTO) 11 % (0-12); NEUTROPHILS # (AUTO) 7.1 10^3/uL (1.8-7.8); NEUTROPHILS % (AUTO) 75 % (42-75); PLATELET COUNT 131 10^3/uL (130-400); WHITE BLOOD COUNT 9.4 10^3/uL (4.3-11.0)
[2022-03-14 06:32] LABS: ALBUMIN 3.3 GM/DL (3.2-4.5); BILIRUBIN,TOTAL 0.3 MG/DL (0.1-1.0); CALCIUM 9.8 MG/DL (8.5-10.1); CREATININE SERUM 0.67 MG/DL (0.60-1.30); POTASSIUM 5.1 MMOL/L (3.6-5.0); TOTAL PROTEIN 6.7 GM/DL (6.4-8.2)
--- NOTE | 2022-03-14 07:55 | Progress Note ---
Subjective Date Seen by a Provider: Mar 14, 2022 Time Seen by a Provider: 07:15 Subjective/Events-last exam patient does appear to be a little bit confused this morning. She is in no respiratory distress. She does occasionally cough Focused Exam Lactate Level 03/12/22 15:53: Lactic Acid Level 0.87 Objective Exam Vital Signs Date Time Temp Pulse Resp B/P (MAP) Pulse Ox O2 Delivery O2 Flow Rate FiO2 03/14/22 07:11 94 Nasal Cannula 4.00 03/14/22 04:34 36.7 85 18 165/67 (99) 95 Nasal Cannula 4.00 03/14/22 03:53 100 Nasal Cannula 4.00 03/14/22 02:55 95 Nasal Cannula 4.00 03/14/22 01:00 89 03/14/22 00:43 36.8 98 164/64 (97) 95 Nasal Cannula 4.00 03/13/22 23:46 100 Nasal Cannula 4.00 03/13/22 23:45 102 100 Nasal Cannula 4.00 03/13/22 20:00 96 146/60 (88) 100 Nasal Cannula 4.00 03/13/22 19:50 94 Nasal Cannula 4.00 03/13/22 19:35 36.7 Nasal Cannula 4.00 03/13/22 19:00 91 03/13/22 16:00 95 Nasal Cannula 2.00 03/13/22 16:00 85 95 Nasal Cannula 2.00 03/13/22 13:00 75 03/13/22 12:00 92 Nasal Cannula 2.00 03/13/22 12:00 89 97 Nasal Cannula 2.00 03/13/22 08:00 89 157/64 (95) 99 Nasal Cannula 2.00 03/13/22 08:00 94 Nasal Cannula 2.00 I & O 03/14/22 07:00 Intake Total 1440 ml Output Total 800 ml Balance 640 ml Capillary Refill : Less Than 3 Seconds General Appearance: No Apparent Distress HEENT: Moist Mucous Membranes Respiratory: Rales (in bases); No Respiratory Distress Cardiovascular: Regular Rate, Rhythm Gastrointestinal: soft Neurologic/Psychiatric: Alert, Oriented x3 (after further discussion with her) Skin: Normal Color Results Lab Laboratory Tests 03/13/22 10:15: White Blood Count 11.3H, Red Blood Count 4.21, Hemoglobin 11.4#L, Hematocrit 37, Mean Corpuscular Volume 89, Mean Corpuscular Hemoglobin 27, Mean Corpuscular Hemoglobin Concent 31L, Red Cell Distribution Width 13.8, Platelet Count 233, Mean Platelet Volume 10.9, Immature Granulocyte % (Auto) 1, Neutrophils (%) (Auto) 82H, Lymphocytes (%) (Auto) 9L, Monocytes (%) (Auto) 8, Eosinophils (%) (Auto) 0, Basophils (%) (Auto) 0, Neutrophils # (Auto) 9.3H, Lymphocytes # (Auto) 1.0, Monocytes # (Auto) 0.9, Eosinophils # (Auto) 0.0, Basophils # (Auto) 0.0, Immature Granulocyte # (Auto) 0.1, Sodium Level 136, Potassium Level 5.5H, Chloride Level 101, Carbon Dioxide Level 27, Anion Gap 8, Blood Urea Nitrogen 11, Creatinine 0.73, Estimat Glomerular Filtration Rate 87, BUN/Creatinine Ratio 15, Glucose Level 128H, Calcium Level 9.9, Corrected Calcium 10.3H, Ionized Calcium (Measured) TNP:Hemolyzed, Ionized Calcium pH TNP:Hemolyzed, Ionized Calcium (Corrected) TNP:Hemolyzed, Total Bilirubin 0.4, Aspartate Amino Transf (AST/SGOT) 11, Alanine Aminotransferase (ALT/SGPT) 11, Alkaline Phosphatase 77, Total Protein 6.9, Albumin 3.5 03/13/22 14:00: Stool Occult Blood Immunoassay NEGATIVE 03/14/22 05:34: White Blood Count 9.4, Red Blood Count 4.13, Hemoglobin 11.1L, Hematocrit 37, Mean Corpuscular Volume 90, Mean Corpuscular Hemoglobin 27, Mean Corpuscular Hemoglobin Concent 30L, Red Cell Distribution Width 14.0, Platelet Count 131, Mean Platelet Volume 12.6H, Immature Granulocyte % (Auto) 1, Neutrophils (%) (Auto) 75, Lymphocytes (%) (Auto) 13, Monocytes (%) (Auto) 11, Eosinophils (%) (Auto) 0, Basophils (%) (Auto) 0, Neutrophils # (Auto) 7.1, Lymphocytes # (Auto) 1.2, Monocytes # (Auto) 1.0, Eosinophils # (Auto) 0.0, Basophils # (Auto) 0.0, Immature Granulocyte # (Auto) 0.1, Sodium Level 135, Potassium Level 5.1H, Chloride Level 99, Carbon Dioxide Level 23, Anion Gap 13, Blood Urea Nitrogen 10, Creatinine 0.67, Estimat Glomerular Filtration Rate 92, BUN/Creatinine Ratio 15, Glucose Level 108H, Calcium Level 9.8, Corrected Calcium 10.4H, Total Bilirubin 0.3, Aspartate Amino Transf (AST/SGOT) 13, Alanine Aminotransferase (ALT/SGPT) 11, Alkaline Phosphatase 92, Total Protein 6.7, Albumin 3.3 Microbiology 03/12/22 Blood Culture - Preliminary, Resulted No growth Assessment/Plan Assessment/Plan Assess & Plan/Chief Complaint 1. Left lower lobe pneumonia -patient has been initiated on IV ceftriaxone as well as IV Zithromax -Albuterol treatments initiated 03/14 -Day #3 of IV ceftriaxone and IV Zithromax -Chest x-ray repeat noted from yesterday slightly worse -We will recheck x-ray in the morning of March 15 2. Anemia -Patient does not appear to be symptomatic from the anemia. We will await to see what the results from hemoglobin are today. 03/14 -hemoglobin noted to be 11.1 3. Hypokalemia -replacement 03/14 -potassium is now 5.1 4. Hypomagnesemia -monitor and replace 5. Hypocalcemic -Monitoring and replace 03/14 -calcium 10.4 this a.m. 6. History of L breast cancer/mastectomy 2014 -She is currently on Letrozole 2.5 mg daily. 7. Hypothyroidismknown -Currently on levothyroxine 0.125 mg daily 8. Weakness -Physical therapy and occupational therapy ongoing Clinical Quality Measures Admission Status Admission Dx 1. Left lower lobe pneumonia 2. Anemia 3. Hypokalemia 4. Hypomagnesemia 5. Hypocalcemic 6. History of L breast cancer/mastectomy 2014 ZHENG SOLANO MD Mar 14, 2022 07:55
[2022-03-14] MEDS: DOCUSATE SODIUM 100 MG (COLACE) CAP PO SCH ×2 (08:31→21:09)
[2022-03-14] MEDS: CALCIUM CARBONATE 500 MG (TUMS) TAB.CHEW PO SCH ×2 (08:31→21:08)
[2022-03-14] MEDS: OMEGA 3 (FISH OIL) 1000 MG CAP PO SCH (08:31)
[2022-03-14] MEDS: BENZONATATE 100 MG (TESSALON) CAPSULE PO SCH ×3 (08:31→21:08)
[2022-03-14] MEDS: AZITHROMYCIN 250 MG TAB (ZITHROMAX) PO SCH (08:31)
[2022-03-14] MEDS: LEVOTHYROXINE 75 MCG (LEVOTHROID) TABLET PO SCH (08:32)
[2022-03-14] MEDS: KCL 10 MEQ TAB (MICRO K) PO SCH ×2 (08:32→15:45)
[2022-03-14] MEDS: SENNOSIDES 8.6 MG (SENOKOT) TAB PO SCH ×2 (08:32→21:09)
[2022-03-14] MEDS ORDERED: LEVOTHYROXINE 75 MCG (LEVOTHROID) TABLET PO SCH (09:00)
--- NOTE | 2022-03-14 09:37 | Physical Therapy Daily Note ---
PT Daily Note-Current Subjective Patient more alert today. Agrees to PT. Mental Status Patient Orientation: Normal For Age Attachments: Oxygen Transfers SCALE: Activities may be completed with or without assistive devices. 9-Axpnrftpzr-aldbyty completes the activity by him/herself with no assistance from a helper. 5-Set-up or Clean-up Assistance-helper sets up or cleans up; patient completes activity. [place] assists only prior to or following the activity. 4-Supervision or Touching Assistance-helper provides verbal cues and/or touching/steadying and/or contact guard assistance as patient completes activity. Assistance may be provided throughout the activity or intermittently. 3-Partial/Moderate Assistance-helper does LESS THAN HALF the effort. [place] lifts, holds or supports trunk or limbs, but provides less than half the effort. 2-Substantial/Maximal Assistance-helper does MORE THAN HALF the effort. [place] lifts or holds trunk or limbs and provides more than half the effort. 4-Ddmtokclu-fxjjyv does ALL the effort. Patient does none of the effort to complete the activity. Or, the assistance of 2 or more helpers is required for the patient to complete the activity. If activity was not attempted, code reason: 7-Patient Refused. 9-Not Applicable-not attempted and the patient did not perform the activity before the current illness, exacerbation or injury. 10-Not Attempted due to Environmental Limitations-(lack of equipment, weather restraints, etc.). 88-Not Attempted due to Medical Conditions or Safety Concerns. Sit to Stand (QC): 4 Gait Training Distance: 250' Walk 10 feet (QC): 4 Walk 50 ft with 2 Turns(QC): 4 Walk 150 ft (QC): 4 Gait Assistive Device: FWW slightly unsteady with self correct. CGA for safety Assessment Patient will require FWW for home use upon dismissal from hospital. FWW utilized to improve patient balance with ambulation. Patient is able to self correct gait sequence with FWW use. PT Parachute Packer Goals Intermediate Goals PT Parachute Packer Goals Time Frame: Mar 25, 2022 Roll Left & Right (QC): 6 Sit to Lying (QC): 6 Lying-Sitting on Side/Bed(QC): 6 Sit to Stand (QC): 6 Chair/Fqs-fi-Bdiam Xfer(QC): 6 Toilet Transfer (QC): 6 Walk 10 feet (QC): 6 Walk 50ft with 2 Turns (QC): 6 Walk 150 ft (QC): 6 1 Step (curb) (QC): 6 4 Steps (QC): 6 PT Plan Treatment/Plan Treatment Plan: Continue Plan of Care Treatment Plan: Bed Mobility, Education, Functional Activity Myron, Functional Strength, Gait, Safety, Therapeutic Exercise, Transfers Treatment Duration: Mar 25, 2022 Frequency: 6 times per week Estimated Hrs Per Day: .25 hour per day Patient and/or Family Agrees t: Yes Time/GCodes Time In: 835 Time Out: 845 Total Billed Treatment Time: 10 Total Billed Treatment 1 visit FA 10 min DAYA ROCHA PT Mar 14, 2022 09:37
--- NOTE | 2022-03-14 10:10 | Occupational Ther Daily Note ---
OT Current Status-Daily Note Subjective Pt drowsy and was difficult to keep awake throughout session. present in room. Pt agrees to therapy. Mental Status/Objective Patient Orientation: Person, Unable to Assess Attachments: IV, Oxygen, Telemetry ADL-Treatment Therapy Code Descriptions/Definitions Functional [place] Measure: 0=Not Assessed/NA 4=Minimal Assistance 1=Total Assistance 5=Supervision or Setup 2=Maximal Assistance 6=Modified [place] 3=Moderate Assistance 7=Complete IndependenceSCALE: Activities may be completed with or without assistive devices. 6-Isijldspqs-dawmsnf completes the activity by him/herself with no assistance from a helper. 5-Set-up or Clean-up Assistance-helper sets up or cleans up; patient completes activity. [place] assists only prior to or following the activity. 4-Supervision or Touching Assistance-helper provides verbal cues and/or touching/steadying and/or contact guard assistance as patient completes activity. Assistance may be provided throughout the activity or intermittently. 3-Partial/Moderate Assistance-helper does LESS THAN HALF the effort. [place] lifts, holds or supports trunk or limbs, but provides less than half the effort. 2-Substantial/Maximal Assistance-helper does MORE THAN HALF the effort. [place] lifts or holds trunk or limbs and provides more than half the effort. 8-Qrftyelsm-ucjzcq does ALL the effort. Patient does none of the effort to complete the activity. Or, the assistance of 2 or more helpers is required for the patient to complete the activity. If activity was not attempted, code reason: 7-Patient Refused. 9-Not Applicable-not attempted and the patient did not perform the activity before the current illness, exacerbation or injury. 10-Not Attempted due to Environmental Limitations-(lack of equipment, weather restraints, etc.). 88-Not Attempted due to Medical Conditions or Safety Concerns. Other Treatment Pt completed B UE exercises using light resistance theraband for 2 exercises 2 sets 10 reps. Skilled instruction for correct technique while using theraband to increase strength for daily functional tasks. Shldr flexion/ext required AAROM to complete full ROM, 2 sets 10 reps. Pt required cues to stay awake and focus on task throughout session. After session, pt sitting in recliner with call light/phone in reach. All needs met in room. OT Golf Course Manager Goals Golf Course Manager Goals Time Frame: Mar 27, 2022 Eating (QC): 5 Oral Hygiene (QC): 5 Toileting Hygiene (QC): 4 Shower/Bathe Self (QC): 4 Upper Body Dressing (QC): 4 Lower Body Dressing (QC): 4 On/Off Footwear (QC): 5 1=Demonstrate adherence to instructed precautions during ADL tasks. 2=Patient will verbalize/demonstrate understanding of assistive devices/modifications for ADL. 3=Patient will improve strength/tolerance for activity to enable patient to perform ADL's. OT Education/Plan Problem List/Assessment Assessment: Decreased Activ Tolerance, Decreased Safety Aware, Decreased UE Strength Discharge Recommendations Plan/Recommendations: Continue POC Treatment Plan/Plan of Care Patient would benefit from OT for education, treatment and training to promote independence in ADL's, mobility, safety and/or upper extremity function for ADL's. Plan of Care: ADL Retraining, Cognitive Retraining, Functional Mobility, Group Exercise/Act as Ind, UE Funct Exercise/Act Treatment Duration: Mar 27, 2022 Frequency: 3 times per week (3-5x/week) Estimated Hrs Per Day: .25 hour per day Agreement: Yes Rehab Potential: Fair Time/GCodes Start Time: 09:52 Stop Time: 10:03 Total Time Billed (hr/min): 11 Billed Treatment Time 1 visit-EX 1 (11 min) JAZIEL GRISSOM Mar 14, 2022 10:10
[2022-03-14] MEDS: LIDOCAINE 1% INJ 20 ML VIAL INJ SCH (18:43)
[2022-03-14] MEDS: cefTRIAXone 1,000 MG VIAL IM SCH (18:43)
[2022-03-14] MEDS: LETROZOLE 2.5 MG (FEMARA) TAB PO SCH (21:08)
[2022-03-14] MEDS: ENOXAPARIN 40 MG/0.4 ML (LOVENOX) SYR SC SCH (21:09)
[2022-03-15] VITALS (14 sets, daily range): BP systolic 137–164; BP diastolic 48–70
[2022-03-15] MEDS: RT-ALBUTEROL/IPRATROPIUM 3 ML (DUONEB) VIAL INH SCH ×4 (03:24→21:10)
[2022-03-15 04:46] LABS: BASOPHILS % (AUTO) 0 % (0-10); PLATELET COUNT 230 10^3/uL (130-400)
[2022-03-15 04:48] LABS: EOSINOPHILS # (AUTO) 0.1 10^3/uL (0.0-0.3); EOSINOPHILS % (AUTO) 1 % (0-10); HEMATOCRIT 34 % (35-52); HEMOGLOBIN 10.4 g/dL (11.5-16.0); LYMPHOCYTES # (AUTO) 1.1 10^3/uL (1.0-4.0); LYMPHOCYTES % (AUTO) 13 % (12-44); MEAN CORPUSCULAR HEMOGLOBIN 27 pg (25-34); MEAN CORPUSCULAR HGB CONC 31 g/dL (32-36); MEAN CORPUSCULAR VOLUME 87 fL (80-99); MONOCYTES % (AUTO) 11 % (0-12); NEUTROPHILS # (AUTO) 6.6 10^3/uL (1.8-7.8); NEUTROPHILS % (AUTO) 75 % (42-75); WHITE BLOOD COUNT 8.8 10^3/uL (4.3-11.0)
[2022-03-15] MEDS: LEVOTHYROXINE 75 MCG (LEVOTHROID) TABLET PO SCH (06:49)
[2022-03-15 06:56] LABS: ALBUMIN 3.2 GM/DL (3.2-4.5); POTASSIUM 4.8 MMOL/L (3.6-5.0)
[2022-03-15 07:00] LABS: BILIRUBIN,TOTAL 0.4 MG/DL (0.1-1.0)
[2022-03-15 07:02] LABS: CREATININE SERUM 0.7 MG/DL (0.60-1.30)
--- NOTE | 2022-03-15 07:04 | Diagnostic Imaging Report ---
History: Basilar infiltrates COMPARISON: 03/13/2022 TECHNIQUE: Frontal view the chest FINDINGS: Lung volumes are mildly large. There are bibasilar airspace opacities, left greater than right. Mild hazy airspace opacities seen in the right upper lobe. The cardiac silhouette is normal in size. There is a small left pleural effusion. No pneumothorax is seen. Multiple leads overlie the chest. IMPRESSION: 1. Bilateral airspace opacities, particularly at the left lung base. Overall aeration appears slightly improved compared to the prior exam. Dictated by: Dictated on workstation # [id number]
--- NOTE | 2022-03-15 08:06 | Progress Note ---
Subjective Date Seen by a Provider: Mar 15, 2022 Time Seen by a Provider: 07:20 Subjective/Events-last exam patient sitting in chair upon making rounds this morning. She does not appear to be in any respiratory distress. She is still slightly confused but is well aware she is in [place] instead of [place] her hometown. She is still somewhat weak. Occasional cough. She denies any cardiac symptoms despite having occasional runs of A. fib with RVR early this morning Focused Exam Lactate Level 03/12/22 15:53: Lactic Acid Level 0.87 Objective Exam Vital Signs Date Time Temp Pulse Resp B/P (MAP) Pulse Ox O2 Delivery O2 Flow Rate FiO2 03/15/22 07:00 78 24 152/56 (87) 97 03/15/22 06:00 83 18 149/69 (90) 97 03/15/22 05:00 84 12 137/48 (74) 95 03/15/22 04:00 92 Nasal Cannula 2.00 03/15/22 04:00 101 16 146/51 (74) 95 03/15/22 03:24 96 Nasal Cannula 2.00 03/15/22 03:00 80 16 137/56 (83) 96 03/15/22 02:00 82 23 151/61 (87) 97 03/15/22 01:00 110 17 148/70 (84) 95 03/15/22 00:56 141/55 (88) 03/15/22 00:32 87 03/15/22 00:00 98 Nasal Cannula 2.00 03/14/22 23:58 36.9 142 23 120/49 (58) 95 03/14/22 21:50 96 Nasal Cannula 2.00 03/14/22 20:00 37.2 03/14/22 20:00 98 Nasal Cannula 2.00 03/14/22 20:00 80 20 127/46 (73) 96 2.00 03/14/22 19:00 86 03/14/22 16:00 98 Nasal Cannula 4.00 03/14/22 16:00 92 15 126/53 (77) 92 Nasal Cannula 4.00 03/14/22 15:11 100 Nasal Cannula 4.00 03/14/22 12:40 84 03/14/22 12:00 98 Nasal Cannula 4.00 03/14/22 11:54 36.7 77 16 131/69 (89) 98 Nasal Cannula 4.00 I & O 03/15/22 07:00 Intake Total 340 ml Balance 340 ml Capillary Refill : Less Than 3 Seconds General Appearance: No Apparent Distress Neck: Non Tender Respiratory: Decreased Breath Sounds, Rales (in bases) Cardiovascular: Regular Rate, Rhythm (with rate currently controlled) Gastrointestinal: soft Results Lab Laboratory Tests 03/14/22 13:03: Ionized Calcium (Measured) 1.19, Ionized Calcium pH 7.42, Ionized Calcium (Corrected) 1.20 03/15/22 04:25: White Blood Count 8.8, Red Blood Count 3.90, Hemoglobin 10.4L, Hematocrit 34L, Mean Corpuscular Volume 87, Mean Corpuscular Hemoglobin 27, Mean Corpuscular Hemoglobin Concent 31L, Red Cell Distribution Width 14.0, Platelet Count 230, Mean Platelet Volume 11.0, Immature Granulocyte % (Auto) 1, Neutrophils (%) (Auto) 75, Lymphocytes (%) (Auto) 13, Monocytes (%) (Auto) 11, Eosinophils (%) (Auto) 1, Basophils (%) (Auto) 0, Neutrophils # (Auto) 6.6, Lymphocytes # (Auto) 1.1, Monocytes # (Auto) 1.0, Eosinophils # (Auto) 0.1, Basophils # (Auto) 0.0, Immature Granulocyte # (Auto) 0.1, Percent Immature Platelet Fraction 5.4 03/15/22 06:35: Sodium Level 137, Potassium Level 4.8, Chloride Level 95L, Carbon Dioxide Level 27, Anion Gap 15H, Blood Urea Nitrogen 11, Creatinine 0.70, Estimat Glomerular Filtration Rate 91, BUN/Creatinine Ratio 16, Glucose Level 127H, Calcium Level 10.0, Corrected Calcium 10.6H, Total Bilirubin 0.4, Aspartate Amino Transf (AST/SGOT) 17, Alanine Aminotransferase (ALT/SGPT) 7, Alkaline Phosphatase 74, Total Protein 7.0, Albumin 3.2 Microbiology 03/12/22 Blood Culture - Preliminary, Resulted No growth Assessment/Plan Assessment/Plan Assess & Plan/Chief Complaint 1. Left lower lobe pneumonia -patient has been initiated on IV ceftriaxone as well as IV Zithromax -Albuterol treatments initiated 03/14 -Day #3 of IV ceftriaxone and IV Zithromax -Chest x-ray repeat noted from yesterday slightly worse -We will recheck x-ray in the morning of March 1503/15 -Day #4 of IM ceftriaxone and oral Zithromax. She has poor veins and apparently did not get a midline due to her previous mastectomy 2. Anemia -Patient does not appear to be symptomatic from the anemia. We will await to see what the results from hemoglobin are today. 03/14 -hemoglobin noted to be 11.1 3. Hypokalemia -replacement 03/14 -potassium is now 5.1 4. Hypomagnesemia -monitor and replace 5. Hypocalcemic -Monitoring and replace 03/14 -calcium 10.4 this a.m. 6. History of L breast cancer/mastectomy 2014 -She is currently on Letrozole 2.5 mg daily. 7. Hypothyroidismknown -Currently on levothyroxine 0.125 mg daily 8. Weakness -Physical therapy and occupational therapy ongoing 9. Occasional A. fib with RVR -Dr. Voss consult in early a.m. and appreciate his help. He had gave patient metoprolol ER 25 mg. Clinical Quality Measures Admission Status Admission Dx 1. Left lower lobe pneumonia 2. Anemia 3. Hypokalemia 4. Hypomagnesemia 5. Hypocalcemic 6. History of L breast cancer/mastectomy 2014 ZHENG SOLANO MD Mar 15, 2022 08:06
[2022-03-15] MEDS: AZITHROMYCIN 250 MG TAB (ZITHROMAX) PO SCH (08:11)
[2022-03-15] MEDS: OMEGA 3 (FISH OIL) 1000 MG CAP PO SCH (08:11)
[2022-03-15] MEDS: KCL 10 MEQ TAB (MICRO K) PO SCH ×2 (08:11→18:46)
[2022-03-15] MEDS: CALCIUM CARBONATE 500 MG (TUMS) TAB.CHEW PO SCH ×2 (08:12→21:02)
[2022-03-15] MEDS: DOCUSATE SODIUM 100 MG (COLACE) CAP PO SCH ×2 (08:12→21:02)
[2022-03-15] MEDS: SENNOSIDES 8.6 MG (SENOKOT) TAB PO SCH ×2 (08:13→21:02)
[2022-03-15] MEDS: BENZONATATE 100 MG (TESSALON) CAPSULE PO SCH ×3 (08:17→21:01)
[2022-03-15 08:50] LABS: TRIGLYCERIDES 98 MG/DL (<150); VLDL CHOLESTEROL 20 MG/DL (5-40)
[2022-03-15 08:55] LABS: CHOLESTEROL 155 MG/DL (< 200)
[2022-03-15 08:56] LABS: HDL CHOLESTEROL 49 MG/DL (40-60)
--- NOTE | 2022-03-15 09:09 | Consultation-Cardiology ---
HPI-Cardiology Cardiology Consultation: Date of Consultation 03/15/22 Date of Admission 03/12/22 Attending Physician Kj Morgan MD Admitting Physician Admitting Physician: Jen Galeano DO Attending Physician: Kj Morgan MD Consulting Physician YAKOV CATALAN JR, MD HPI: Time Seen by a Provider: 09:04 Chief Complaint: REASON FOR CONSULTATION: Atrial fibrillation. I had the pleasure of seeing Michelle in the cardiac stepdown unit at [facility] in [place], [place] today. She has no known history of cardiac disease. She was admitted to the hospital on 03/12 due to pneumonia. She has been receiving antibiotics for this. The plan was to possibly have her discharged home today but late last evening, she developed atrial fibrillation with a rapid ventricular rate. I was notified at that time. I asked the staff to give her 1 dose of metoprolol succinate 25 mg orally once. Overnight, she converted back to sinus rhythm with intermittent sinus tachycardia. She denies any palpitations at the time the atrial fibrillation occurred. She has had a cough and some mild shortness of breath with the pneumonia. She denies chest pain, paroxysmal nocturnal dyspnea, orthopnea, lightheadedness, syncope, or lower extremity edema. Because of the atrial fibrillation, a cardiology consultation was requested. Certain portions of this document may have been dictated utilizing voice recognition technology. Inherent to this technology, typographical and gram matical errors may exist. As much as I am diligent to identify and correct these mistakes, some errors may remain in the document. Review of Systems-Cardiology Review of Systems Other comments Review of 10 organ systems is as per the history of present illness, otherwise negative. MHU-Iokfdc-Pefcrw Hx Patient Social History Marrital Status: Employed/Student: retired Smoking Status: Former Smoker Former smoker/When Quit: November 28, 2014 2nd Hand Smoke Exposure: Yes Have you traveled recently?: No Alcohol Use?: No Pt feels they are or have been: No Immunizations Up To Date Tetanus Booster (TDap): Unknown Date of Pneumonia Vaccine: Sep 07, 2017 Date of Influenza Vaccine: Apr 29, 2018 Past Medical History PMH As described under Assessment. Family Medical History Family Medical History: She has adopted but did know her parents and neither of them had premature coronary artery disease. Family History: Diabetes mellitus 19 MOTHER G8 BROTHER G8 SISTER Myocardial infarction 19 MOTHER Allergies and Home Medications Allergies Uncoded Allergies: TAPE (Allergy, Severe, BLISTERS, 01/06/19) Patient Home Medication List Home Medication List Reviewed: Yes Acetaminophen (Tylenol Extra Strength) 500 Mg Tablet, 500-1,000 MG PO Q8H PRN for PAIN-MILD (1-4), (Reported) Entered as Reported by: ANGIE GLORIA on 03/13/221105 Last Action: Reviewed Cholecalciferol (Vitamin D3) (Vitamin D3) 25 Mcg (1000 Unit) Capsule, 25 MCG PO DAILY, (Reported) Entered as Reported by: ANGIE GLORIA on 03/13/221105 Last Action: Reviewed Erythromycin Base (Erythromycin Opthalmic Ointment) 5 Mg/Gram (0.5 %) Oint...g., 1 APPLIC OP TID, (Reported) Entered as Reported by: ANGIE GLORIA on 03/13/221105 Last Action: Reviewed Fish Oil/Dha/Epa (Fish Oil 1,200 mg Fish Oil) 1,200 Mg-144 Mg-216 Mg Capsule, 1 EACH PO DAILY, (Reported) Entered as Reported by: ANGIE GLORIA on 03/13/221105 Last Action: Reviewed Ibuprofen (Advil) 200 Mg Tablet, 200-400 MG PO Q8H PRN for PAIN-MILD (1-4), (Reported) Entered as Reported by: ANGIE GLORIA on 03/13/221105 Last Action: Reviewed Letrozole (Letrozole) 2.5 Mg Tablet, 2.5 MG PO HS, (Reported) Entered as Reported by: MAGGY DE LA CRUZ on 05/29/19 1040 Last Action: Continued Levothyroxine Sodium (Levothyroxine Sodium) 75 Mcg Tablet, 75 MCG PO DAILY, (Reported) Entered as Reported by: ANGIE GLORIA on 03/13/221105 Last Action: Continued Terbinafine HCl (Terbinafine HCl) 250 Mg Tablet, 250 MG PO DAILY, (Reported) Entered as Reported by: ANGIE GLORIA on 03/13/221105 Last Action: Reviewed Discontinued Medications Cephalexin (Keflex) 500 Mg Capsule, 500 MG PO TID Discontinued Reason: No Longer Taking Prescribed by: MARIKA WILL on 05/30/19 1039 Last Action: Discontinued Hydrocodone Bit/Acetaminophen (Lortab 5 Mg Tablet) 1 Each Tablet, 1 TAB PO Q4H PRN for PAIN-MODERATE Discontinued Reason: No Longer Taking Prescribed by: MARIKA WILL on 05/30/19 1039 Last Action: Discontinued Ketoconazole (Ketoconazole) 15 Gm Cream..g., TOP BID, (Reported) Discontinued Reason: No Longer Taking Entered as Reported by: MAGGY DE LA CRUZ on 05/29/19 1043 Last Action: Discontinued Levothyroxine Sodium (Levothyroxine Sodium) 125 Mcg Tablet, 125 MCG PO DAILY, (Reported) Discontinued Reason: No Longer Taking Entered as Reported by: SERGIO GUERRA on 01/06/19 1143 Last Action: Discontinued Silver Sulfadiazine (Ssd) 25 Gm Cream..g., TOP BID, (Reported) Discontinued Reason: No Longer Taking Entered as Reported by: MAGGY DE LA CRUZ on 05/29/19 1043 Last Action: Discontinued Exam Vital Signs Vital Signs Date Time Temp Pulse Resp B/P (MAP) Pulse Ox O2 Delivery O2 Flow Rate FiO2 03/15/22 08:00 80 18 148/57 (87) 95 Nasal Cannula 2.00 03/14/22 23:58 36.9 03/13/22 07:29 98 Physical Exam General: Alert. No acute distress. Well nourished and appears stated age. Eye: Extraocular movements are intact. Conjunctivae are clear. There are no xanthelasma. HENT: Normocephalic. Atraumatic. Carotid pulsations 2/2 without bruits. Neck: Jugular venous pressure does not appear elevated. No thyromegaly appreciated. Respiratory: Lungs are clear to auscultation. Respirations are non-labored. Breath sounds are equal. Symmetrical chest wall expansion. Cardiovascular: Normal rate. Regular rhythm. No murmur. No gallop. Point of maximal impulse is not appear displaced. Good pulses equal in all extremities. No edema. Gastrointestinal: Soft. Normal bowel sounds. Skin: Skin turgor is normal. There is no pallor. Musculoskeletal: No kyphosis or scoliosis appreciated. Neurologic: Alert and oriented to person, place, time. Cranial nerves 3-12 appear grossly intact. The patient has good motor tone strength in the upper and lower extremities bilaterally. Psychiatric: Cooperative. Appropriate mood & affect. Labs Laboratory Tests Test 03/14/22 13:03 03/15/22 04:25 03/15/22 06:35 Range/Units Ionized Calcium (Measured) 1.19 1.16-1.32 mmol/L Ionized Calcium pH 7.42 Ionized Calcium (Corrected) 1.20 1.16-1.32 mmol/L White Blood Count 8.8 4.3-11.0 10^3/uL Red Blood Count 3.90 3.80-5.11 10^6/uL Hemoglobin 10.4 L 11.5-16.0 g/dL Hematocrit 34 L 35-52 % Mean Corpuscular Volume 87 80-99 fL Mean Corpuscular Hemoglobin 27 25-34 pg Mean Corpuscular Hemoglobin Concent 31 L 32-36 g/dL Red Cell Distribution Width 14.0 10.0-14.5 % Platelet Count 230 130-400 10^3/uL Mean Platelet Volume 11.0 9.0-12.2 fL Immature Granulocyte % (Auto) 1 % Neutrophils (%) (Auto) 75 42-75 % Lymphocytes (%) (Auto) 13 12-44 % Monocytes (%) (Auto) 11 0-12 % Eosinophils (%) (Auto) 1 0-10 % Basophils (%) (Auto) 0 0-10 % Neutrophils # (Auto) 6.6 1.8-7.8 10^3/uL Lymphocytes # (Auto) 1.1 1.0-4.0 10^3/uL Monocytes # (Auto) 1.0 0.0-1.0 10^3/uL Eosinophils # (Auto) 0.1 0.0-0.3 10^3/uL Basophils # (Auto) 0.0 0.0-0.1 10^3/uL Immature Granulocyte # (Auto) 0.1 0.0-0.1 10^3/uL Percent Immature Platelet Fraction 5.4 0.0-7.6 % Sodium Level 137 135-145 MMOL/L Potassium Level 4.8 3.6-5.0 MMOL/L Chloride Level 95 L 98-107 MMOL/L Carbon Dioxide Level 27 21-32 MMOL/L Anion Gap 15 H 5-14 MMOL/L Blood Urea Nitrogen 11 7-18 MG/DL Creatinine 0.70 0.60-1.30 MG/DL Estimat Glomerular Filtration Rate 91 BUN/Creatinine Ratio 16 Glucose Level 127 H 70-105 MG/DL Calcium Level 10.0 8.5-10.1 MG/DL Corrected Calcium 10.6 H 8.5-10.1 MG/DL Total Bilirubin 0.4 0.1-1.0 MG/DL Aspartate Amino Transf (AST/SGOT) 17 5-34 U/L Alanine Aminotransferase (ALT/SGPT) 7 0-55 U/L Alkaline Phosphatase 74 40-136 U/L Total Protein 7.0 6.4-8.2 GM/DL Albumin 3.2 3.2-4.5 GM/DL Triglycerides Level 98 <150 MG/DL Cholesterol Level 155 < 200 MG/DL LDL Cholesterol Direct 99 1-129 MG/DL VLDL Cholesterol 20 5-40 MG/DL HDL Cholesterol 49 40-60 MG/DL ECG Impression ECG Comment Electrocardiogram from admission on 03/12 showed sinus tachycardia at 101 bpm with left atrial abnormality and nonspecific intraventricular conduction delay. Electrocardiogram from 03/15 and 00:07 showed sinus rhythm with premature supraventricular complexes, left atrial abnormality and nonspecific intraventricular conduction delay. Electrocardiogram from 03/15 and 00:17 showed atrial fibrillation with a ventricular rate of 150 bpm with nonspecific intraventricular conduction delay and nonspecific ST changes. Diagnosis/Problems Diagnosis/Problems (1) Paroxysmal atrial fibrillation Assessment & Plan: She had asymptomatic atrial fibrillation in the setting of pneumonia. She has now converted back to sinus rhythm with premature supraventricular complexes. I added a TSH level to this morning's labs just to make sure that thyroid disease did not have anything to do with the atrial fibrillation. I suspect the atrial fibrillation was just due to the pneumonia. I have started her on metoprolol succinate for rate control in the event she has recurrent atrial fibrillation. At this time, I do not see any indication for oral anticoagulation since the atrial fibrillation was brief. I would like to see her in the office following discharge. I will consider an outpatient event recorder following discharge to screen for recurrent atrial fibrillation. As long as she remains in sinus rhythm this morning, if she is otherwise ready for discharge, the atrial fibrillation should not delay her discharge. (2) Abnormal electrocardiogram Assessment & Plan: She has a borderline abnormal electrocardiogram showing a nonspecific intraventricular conduction delay but no evidence of prior infarct or ischemia at rest. As long as her echocardiogram does not show any significant abnormalities, I do not see any indication for an ischemic evaluation at this time. (3) Pneumonia Status: Acute Assessment & Plan: As above, this may have provoked the atrial fibrillation. (4) Hypokalemia Assessment & Plan: She had hypokalemia at the time of admission and this was corrected. I doubt this had anything to do with the atrial fibrillation. YAKOV CATALAN JR, MD Mar 15, 2022 09:09
--- NOTE | 2022-03-15 09:30 | Physical Therapy Daily Note ---
PT Daily Note-Current Subjective Pt agreeable to treatment. She has been up in bedside chair for an hour and reports she is very uncomfortable. Transfers SCALE: Activities may be completed with or without assistive devices. 4-Zotzksjvih-oaganmy completes the activity by him/herself with no assistance from a helper. 5-Set-up or Clean-up Assistance-helper sets up or cleans up; patient completes activity. [place] assists only prior to or following the activity. 4-Supervision or Touching Assistance-helper provides verbal cues and/or touching/steadying and/or contact guard assistance as patient completes activity. Assistance may be provided throughout the activity or intermittently. 3-Partial/Moderate Assistance-helper does LESS THAN HALF the effort. [place] lifts, holds or supports trunk or limbs, but provides less than half the effort. 2-Substantial/Maximal Assistance-helper does MORE THAN HALF the effort. [place] lifts or holds trunk or limbs and provides more than half the effort. 9-Tszijqbof-ecvgmn does ALL the effort. Patient does none of the effort to co mplete the activity. Or, the assistance of 2 or more helpers is required for the patient to complete the activity. If activity was not attempted, code reason: 7-Patient Refused. 9-Not Applicable-not attempted and the patient did not perform the activity before the current illness, exacerbation or injury. 10-Not Attempted due to Environmental Limitations-(lack of equipment, weather restraints, etc.). 88-Not Attempted due to Medical Conditions or Safety Concerns. Lying to Sitting/Side of Bed(Q: 4 Chair/Prm-da-Ytyur Xfer(QC): 4 Gait Training Gait Assistive Device: FWW Ambulate 300ft with FWW and assist for oxygen tubing. Pt needed minimal cues to correct walker placement. Ambulation ceased due to patient fatigue. Assessment Current Status: Fair Progress Pt Min Assist level for balance and stability during standing activities. She is not safe for unsupervised mobility at this time and will benefit from continued therapy services. PT Social Media Project Manager Goals Fpc Goals PT Fpc Goals Time Frame: Mar 25, 2022 Roll Left & Right (QC): 6 Sit to Lying (QC): 6 Lying-Sitting on Side/Bed(QC): 6 Sit to Stand (QC): 6 Chair/Cpt-se-Hmhgx Xfer(QC): 6 Toilet Transfer (QC): 6 Walk 10 feet (QC): 6 Walk 50ft with 2 Turns (QC): 6 Walk 150 ft (QC): 6 1 Step (curb) (QC): 6 4 Steps (QC): 6 PT Plan Treatment/Plan Treatment Plan: Continue Plan of Care Treatment Plan: Bed Mobility, Education, Functional Activity Myron, Functional Strength, Gait, Safety, Therapeutic Exercise, Transfers Treatment Duration: Mar 25, 2022 Frequency: 6 times per week Estimated Hrs Per Day: .25 hour per day Patient and/or Family Agrees t: Yes Time/GCodes Time In: 829 Time Out: 854 Total Billed Treatment Time: 25 Total Billed Treatment visit, FA 10 min, gait 15 min MEREDITH SUAZO PT Mar 15, 2022 09:29
[2022-03-15] MEDS ORDERED: RT-ALBUTEROL/IPRATROPIUM 3 ML (DUONEB) VIAL INH PRN (11:00)
--- NOTE | 2022-03-15 13:52 | Occupational Ther Daily Note ---
OT Current Status-Daily Note Subjective Pt sitting up in bed eating lunch. Pt agrees to therapy. Pt did not c/o pain at this time. Mental Status/Objective Patient Orientation: Person, Place, Time, Situation Attachments: Oxygen, Telemetry ADL-Treatment Pt set up for eating. Pt completed 3 B UE exercises against gravity, 3 sets of 10 reps to increase strength for daily functional tasks. Skilled instruction given for proper technique. Pt required visual representation throughout each set to continue with proper technique. Call light/phone in reach. All needs met. Therapy Code Descriptions/Definitions Functional [place] Measure: 0=Not Assessed/NA 4=Minimal Assistance 1=Total Assistance 5=Supervision or Setup 2=Maximal Assistance 6=Modified [place] 3=Moderate Assistance 7=Complete IndependenceSCALE: Activities may be completed with or without assistive devices. 5-Jxajtkgucz-fcrypsw completes the activity by him/herself with no assistance from a helper. 5-Set-up or Clean-up Assistance-helper sets up or cleans up; patient completes activity. [place] assists only prior to or following the activity. 4-Supervision or Touching Assistance-helper provides verbal cues and/or t ouching/steadying and/or contact guard assistance as patient completes activity. Assistance may be provided throughout the activity or intermittently. 3-Partial/Moderate Assistance-helper does LESS THAN HALF the effort. [place] lifts, holds or supports trunk or limbs, but provides less than half the effort. 2-Substantial/Maximal Assistance-helper does MORE THAN HALF the effort. [place] lifts or holds trunk or limbs and provides more than half the effort. 5-Zonvcubdm-axvqgr does ALL the effort. Patient does none of the effort to complete the activity. Or, the assistance of 2 or more helpers is required for the patient to complete the activity. If activity was not attempted, code reason: 7-Patient Refused. 9-Not Applicable-not attempted and the patient did not perform the activity before the current illness, exacerbation or injury. 10-Not Attempted due to Environmental Limitations-(lack of equipment, weather restraints, etc.). 88-Not Attempted due to Medical Conditions or Safety Concerns. Eating (QC): 5 OT Senior Care Goals Senior Care Goals Time Frame: Mar 27, 2022 Eating (QC): 5 Oral Hygiene (QC): 5 Toileting Hygiene (QC): 4 Shower/Bathe Self (QC): 4 Upper Body Dressing (QC): 4 Lower Body Dressing (QC): 4 On/Off Footwear (QC): 5 1=Demonstrate adherence to instructed precautions during ADL tasks. 2=Patient will verbalize/demonstrate understanding of assistive devices/modifications for ADL. 3=Patient will improve strength/tolerance for activity to enable patient to perform ADL's. OT Education/Plan Problem List/Assessment Assessment: Decreased Activ Tolerance, Decreased UE Strength Discharge Recommendations Plan/Recommendations: Continue POC Treatment Plan/Plan of Care Patient would benefit from OT for education, treatment and training to promote independence in ADL's, mobility, safety and/or upper extremity function for ADL's. Plan of Care: ADL Retraining, Cognitive Retraining, Functional Mobility, Group Exercise/Act as Ind, UE Funct Exercise/Act Treatment Duration: Mar 27, 2022 Frequency: 3 times per week (3-5x/week) Estimated Hrs Per Day: .25 hour per day Agreement: Yes Rehab Potential: Fair Time/GCodes Start Time: 13:19 Stop Time: 13:33 Total Time Billed (hr/min): 14 Billed Treatment Time 1 visit- Ex 1 (14 min) JAZIEL GRISSOM Mar 15, 2022 13:52
--- NOTE | 2022-03-15 14:21 | Physician Query Clarification ---
Physician Query-General Query to Physician: The medical record reflects the following clinical evidence: Clinical Indicators: in ER: SOA at rest and with exertion, Labored breathing, 02 at night, SpO2 75 % on RA in the ER. Chest tightnbess, Cough congestion, RR 22 on admission ranged from 11 to 24, Risk Factor(s): Pneumonia, Home 02 2L at night only, Smoking Hx, Treatment: Supplemental 02 up to 4L, Respiratory monitoring, IV ABX, AlbuterolQ 6 hours and prn, 1. Acute and chronic respiratory failure with hypoxia, present on admission 2. Other explanation of clinical findings 3. Unable to determine (no explanation for clinical findings) Please clarify and document your clinical opinion in the progress notes and discharge summary including the definitive and/or presumptive diagnosis, (suspected or probable), related to the above clinical findings. Please include clinical findings supporting your diagnosis. Jen Rodriguez RN, MSN Clinical Diamond Wheel Molder [phone] [email or web address] PHYSICIAN RESPONSE: Based on the clinical findings in the record, please respond to the query above on this document as an addendum. Physician Response: Physician Response Acute respiratory failure secondary to pneumonia If you have questions please contact: Quality Assurance Technician: Ext: Thank you for your time and cooperation. Clinical Diamond Wheel Molder/Quality Assurance Technician This is a permanent part of the medical record JEN RODRIGUEZ Mar 15, 2022 14:21 ZHENG SOLANO MD Apr 04, 2022 08:01
--- NOTE | 2022-03-15 14:22 | Physician Query Clarification ---
Physician Query-General Query to Physician: The medical record reflects the following clinical evidence: Clinical Indicators: LLL Pneumonia, Hx Breast CA with Chemo Risk Factor(s): Admission HR 108, RR 22, BP 140/82, SpO2 75% sat on RA, 95% on 2 L T 37.7, WBC 9.7, lactic Acid 0.87, Treatment: ER: Normal saline 1 L, ceftriaxone IV, azithromycin IV, 1. Sepsis, unspecified organism, present on admission 2. Other explanation of clinical findings 3. Unable to determine (no explanation for clinical findings) Please clarify and document your clinical opinion in the progress notes and discharge summary including the definitive and/or presumptive diagnosis, (suspected or probable), related to the above clinical findings. Please include clinical findings supporting your diagnosis. Jen Rodriguez RN, MSN Clinical Recovery Analyst [phone] [email or web address] PHYSICIAN RESPONSE: Based on the clinical findings in the record, please respond to the query above on this document as an addendum. Physician Response: Physician Response Patient without sepsis and yes LLL pneumonia with Respiratory distress If you have questions please contact: Hospitalist Physician: Ext: Thank you for your time and cooperation. Clinical Recovery Analyst/Hospitalist Physician This is a permanent part of the medical record JEN RODRIGUEZ Mar 15, 2022 14:22 ZHENG SOLANO MD Apr 04, 2022 08:03
[2022-03-15] MEDS: LIDOCAINE 1% INJ 20 ML VIAL INJ SCH (18:46)
[2022-03-15] MEDS: cefTRIAXone 1,000 MG VIAL IM SCH (18:46)
[2022-03-15] MEDS: LETROZOLE 2.5 MG (FEMARA) TAB PO SCH (21:02)
[2022-03-15] MEDS: ENOXAPARIN 40 MG/0.4 ML (LOVENOX) SYR SC SCH (21:02)
[2022-03-16 03:00] VITALS: BP 144/58
[2022-03-16] MEDS: RT-ALBUTEROL/IPRATROPIUM 3 ML (DUONEB) VIAL INH SCH (03:45)
[2022-03-16] MEDS: LEVOTHYROXINE 75 MCG (LEVOTHROID) TABLET PO SCH (05:50)
[2022-03-16 07:37] LABS: BASOPHILS % (AUTO) 1 % (0-10); EOSINOPHILS # (AUTO) 0.1 10^3/uL (0.0-0.3); EOSINOPHILS % (AUTO) 2 % (0-10); HEMATOCRIT 35 % (35-52); HEMOGLOBIN 10.7 g/dL (11.5-16.0); LYMPHOCYTES # (AUTO) 1.1 10^3/uL (1.0-4.0); LYMPHOCYTES % (AUTO) 15 % (12-44); MEAN CORPUSCULAR HEMOGLOBIN 27 pg (25-34); MEAN CORPUSCULAR HGB CONC 31 g/dL (32-36); MEAN CORPUSCULAR VOLUME 87 fL (80-99); MONOCYTES # (AUTO) 0.8 10^3/uL (0.0-1.0); MONOCYTES % (AUTO) 12 % (0-12); NEUTROPHILS # (AUTO) 5.2 10^3/uL (1.8-7.8); NEUTROPHILS % (AUTO) 71 % (42-75); PLATELET COUNT 276 10^3/uL (130-400); WHITE BLOOD COUNT 7.3 10^3/uL (4.3-11.0)
[2022-03-16 07:46] LABS: ALBUMIN 3.1 GM/DL (3.2-4.5); POTASSIUM 4.5 MMOL/L (3.6-5.0)
[2022-03-16 07:48] LABS: CALCIUM 9.9 MG/DL (8.5-10.1)
[2022-03-16 07:49] LABS: TOTAL PROTEIN 6.8 GM/DL (6.4-8.2)
[2022-03-16 07:51] LABS: BILIRUBIN,TOTAL 0.3 MG/DL (0.1-1.0)
[2022-03-16 07:52] LABS: CREATININE SERUM 0.67 MG/DL (0.60-1.30)
--- NOTE | 2022-03-16 22:26 | Discharge Summary ---
Diagnosis/Chief Complaint Date of Admission Mar 12, 2022 at 18:39 Date of Discharge Mar 16, 2022 at 08:16 Discharge Date: Mar 16, 2022 Admission Diagnosis Admission Diagnosis 1. Left lower lobe pneumonia 2. Anemia 3. Hypokalemia 4. Hypomagnesemia 5. Hypocalcemic 6. History of L breast cancer/mastectomy 2014 Discharge Diagnosis 1. Left lower lobe pneumonia 2. Anemia 3. Hypokalemia 4. Hypomagnesemia 5. Hypocalcemic 6. Atrial fibrillation with rapid ventricular response isolated 7. Weakness most likely due to her underlying condition of pneumonia 8. History of L breast cancer/mastectomy 2014 Reason Hospital Visit 72-year-old female presents to [facility] emergency department during the afternoon of March 12, 2022 with reported shortness of breath as well as cough and fever. She had surgery to her eyelids on March 09 since they were drooping down and it was making it difficult for her to see. Her symptomatology started basically the day after. In the emergency department she was noted to have some chest tightness but troponin was negative Discharge Summary Hospital Course Was the Problem List Reviewed?: Yes Hospital Course Patient was admitted with diagnosis of left lower lobe pneumonia. She was initially started on IV ceftriaxone as well as IV Zithromax. She also had albuterol treatments initiated. Chest x-ray in the morning of March 13, 2022 revealed persistence of pneumonia with upper lobe involvement as well. Repeat chest x-ray by March 15 revealed improvement in the overall pattern of pneumonia. This agreed clinically with her breathing improved as well and not as dyspneic. She had difficulty maintaining an IV site and the IV ceftriaxone was switched to IM and the Zithromax was switched to oral. Also during the course of her hospital stay she was noted to be anemic on presentation repeat revealed now 11.1 on March 14. She was also noted to have electrolyte abnormality involving the potassium, magnesium as well as calcium. All 3 of her electrolytes management were low and corrected by replacement. She was also very weak during the course of her hospital stay with physical therapy and Occupational Therapy involvement. By March 16 in the morning she was up in chair but very weak and difficult for her to ambulate at all by herself. Also during the course of her hospital stay she was noted to have tachycardia and this was felt to be secondary to atrial fibrillation with rapid ventricular response most likely brought on by the pneumonia. Dr. Voss was counted and he started metoprolol ER 25 mg. Patient was arranged for swing bed in the morning of March 16, 2022. Labs Laboratory Tests 03/14/22 05:34: Hemoglobin 11.1L, Mean Corpuscular Hemoglobin Concent 30L, Mean Platelet Volume 12.6H, Potassium Level 5.1H, Glucose Level 108H, Corrected Calcium 10.4H 03/14/22 13:03: 03/15/22 04:25: Hemoglobin 10.4L, Mean Corpuscular Hemoglobin Concent 31L, Hematocrit 34L 03/15/22 06:35: Glucose Level 127H, Corrected Calcium 10.6H, Chloride Level 95L, Anion Gap 15H 03/15/22 09:25: 03/16/22 07:30: Hemoglobin 10.7L, Mean Corpuscular Hemoglobin Concent 31L, Chloride Level 94L, Carbon Dioxide Level 33H, Corrected Calcium 10.6H, Albumin 3.1L Procedures None. Consultations Dr Voss - cardiology Discharge Physical Examination Allergies: Uncoded Allergies: TAPE (Allergy, Severe, BLISTERS, 01/06/19) Vitals & I&Os Vital Signs Date Time Temp Pulse Resp B/P (MAP) Pulse Ox O2 Delivery O2 Flow Rate FiO2 03/16/22 09:05 03/16/22 08:00 76 22 92 Nasal Cannula 3.00 03/16/22 03:00 36.7 03/15/22 09:50 28 General Appearance: No Acute Distress Respiratory: Other (bibasilar rales) Cardiovascular: Regular Rate, Other Abdominal: Soft Skin: No Rashes Psych/Mental Status: Mental Status NL (although at times somewhat confused.) Discharge Home Medications Reviewed and agree with Discharge Medication list on patient's Discharge Instruction sheet Instructions to Patient/Family Please see electronic discharge instructions given to patient. ZHENG SOLANO MD Mar 16, 2022 22:26
[2022-03-20] MEDS ORDERED: MTP25TSR PO (08:23)
[2022-03-20] MEDS ORDERED: CEFD300C3 PO (08:23)
[2022-03-20] MEDS ORDERED: BENZ100C18 PO (08:23)
== END 2022-03-16 08:16 | disposition swing bed (61) | DRG 193 ==
LOC: EDUNIT# 14:20 → ER 14:22 → CSD 18:39
PROVIDERS: ADMIT Internal Medicine; ATTEND Family Medicine
DX: J18.9 Pneumonia, unspecified organism (principal); J96.01 Acute respiratory failure with hypoxia; E87.6 Hypokalemia; E83.42 Hypomagnesemia; E83.51 Hypocalcemia; I48.0 Paroxysmal atrial fibrillation; C50.912 Malignant neoplasm of unspecified site of left female breast; K21.9 Gastro-esophageal reflux disease without esophagitis; Z20.822 Contact with and (suspected) exposure to COVID-19; E03.9 Hypothyroidism, unspecified; D64.9 Anemia, unspecified; Z90.12 Acquired absence of left breast and nipple; Z86.711 Personal history of pulmonary embolism; Z87.891 Personal history of nicotine dependence; R94.31 Abnormal electrocardiogram [ECG] [EKG]
CPT/HCPCS: 36415; 36600; 71045; 80053; 80061; 82274; 82306; 82330; 82805; 83605; 83735; 84443; 84484; 85007; 85025; 85027; 85379; 85610; 85730; 87040; 87636; 93005; 93306; 94640; 94664; 96361; 96365; 96366; 96367

== ENCOUNTER 2022-03-16 08:48 | Inpatient (IN) | payer MEDICARE ==
[~2022-03-16] VITALS: Ht 175.3 cm; Wt 89.1 kg
[2022-03-16 08:34] VITALS: BP 148/57
[~2022-03-16 08:48] MED LIST changes: +ACET-2267 PO; +ACETAMINOPHEN 325 MG TABLET PO PRN; +ANTACID SUSP 30 ML UDC (MYLANTA) PO PRN; +BISACODYL 10 MG SUPP (DULCOLAX) PR PRN; +CHOL10007 PO; +ERYT1OIN6 OP; +IBUP-30 PO; +LACTULOSE SYRUP 10GM/15ML (ENULOSE) 30ML UDC PO PRN; +LEVO75TA6 PO; +LIDOCAINE 1% INJ 20 ML VIAL INJ ONE; +LIDOCAINE 1% INJ 20 ML VIAL INJ SCH; +MELATONIN 3 MG TABLET PO PRN; +MILK OF MAGNESIA 400 MG/5 ML 30 ML UDC PO PRN; +NALOXONE 0.4 MG/ML 1 ML (NARCAN) VIAL IV PRN; +ONDANSETRON 4 MG (ZOFRAN) ORAL DISSOLVE TAB PO PRN; +ONDANSETRON 4 MG/2 ML (SDV) Z0FRAN IV PRN; +RT-ALBUTEROL/IPRATROPIUM 3 ML (DUONEB) VIAL INH PRN; +TERB250T88 PO; +cefTRIAXone 1,000 MG VIAL IM SCH; +diphenhydrAMINE 25 MG TAB (BENADRYL) PO PRN; +diphenhydrAMINE 50 MG/ML INJ (BENADRYL) IVP PRN; +guaiFENesin/CODEINE (ROBITUSSIN AC) 10ML UDC PO PRN; +polyethylene glycoL POWDER 17 GM (MIRALAX) PACK PO PRN
[2022-03-16] MEDS ORDERED: AZITHROMYCIN 250 MG TAB (ZITHROMAX) PO SCH (09:00)
[2022-03-16 09:32] VITALS: BP 127/60
[2022-03-16] MEDS: SENNOSIDES 8.6 MG (SENOKOT) TAB PO SCH ×2 (09:59→20:24)
[2022-03-16] MEDS: DOCUSATE SODIUM 100 MG (COLACE) CAP PO SCH ×2 (09:59→20:24)
[2022-03-16] MEDS: CALCIUM CARBONATE 500 MG (TUMS) TAB.CHEW PO SCH ×2 (09:59→20:23)
[2022-03-16] MEDS: OMEGA 3 (FISH OIL) 1000 MG CAP PO SCH (09:59)
[2022-03-16] MEDS: BENZONATATE 100 MG (TESSALON) CAPSULE PO SCH ×3 (10:00→20:23)
--- NOTE | 2022-03-16 10:20 | Physical Therapy Evaluation ---
PT Evaluation-General Medical Diagnosis Admission Date Mar 16, 2022 at 08:48 Medical Diagnosis: pneumonia/debility Onset Date: Mar 13, 2022 Therapy Diagnosis Therapy Diagnosis: impaired mobility/weakness Height/Weight Height (Feet): 5 Height (Inches): 9.00 Weight (Pounds): 215 Weight (Ounces): 6.0 Precautions Precautions/Isolations: Fall Prevention, Standard Precautions Referral Physician: Eddie Reason for Referral: Evaluation/Treatment Medical History Pertinent Medical History: Hypothroidism Current History SWB status Reviewed History: Yes Social History Home: Single Level Current Living Status: Spouse Entry Into Home: Stairs With Railing PT Steps Into Home: 4 Prior Prior Level of Function SCALE: Activities may be completed with or without assistive devices. 5-Wbenizalyk-xvrxseo completes the activity by him/herself with no assistance from a helper. 5-Set-up or Clean-up Assistance-helper sets up or cleans up; patient completes activity. [place] assists only prior to or following the activity. 4-Supervision or Touching Assistance-helper provides verbal cues and/or touching/steadying and/or contact guard assistance as patient completes activity. Assistance may be provided throughout the activity or intermittently. 3-Partial/Moderate Assistance-helper does LESS THAN HALF the effort. [place] lifts, holds or supports trunk or limbs, but provides less than half the effort. 2-Substantial/Maximal Assistance-helper does MORE THAN HALF the effort. [place] lifts or holds trunk or limbs and provides more than half the effort. 4-Qwzttkrmo-ndnjgs does ALL the effort. Patient does none of the effort to complete the activity. Or, the assistance of 2 or more helpers is required for the patient to complete the activity. If activity was not attempted, code reason: 7-Patient Refused. 9-Not Applicable-not attempted and the patient did not perform the activity before the current illness, exacerbation or injury. 10-Not Attempted due to Environmental Limitations-(lack of equipment, weather restraints, etc.). 88-Not Attempted due to Medical Conditions or Safety Concerns. Bed Mobility: 6 Transfers (B,C,W/C): 6 Gait: 6 Stairs: 6 Indoor Mobility (Ambulation): Independent Stairs: Independent Prior Devices Use: None PT Evaluation-Current Subjective Patient agrees to PT. Noted mild confusion Objective Patient Orientation: Person, Time, Situation Attachments: Oxygen ROM/Strength ROM Lower Extremities bilateral LE WFL Strength Lower Extremities 4-/5 grossly bilateral LE all planes Integumentary/Posture Integumentary refer to nursing notes Bowel Incontinence: No Bladder Incontinence: No Posture WFL Neuromuscular (Tone, Coordination, Reflexes) grossly intact Sensory Vision: Functional Hearing: Functional Transfers Roll Left & Right (QC): 6 Sit to Lying (QC): 6 Lying to Sitting/Side of Bed(Q: 6 Sit to Stand (QC): 4 Chair/Wrm-iz-Ingqu Xfer(QC): 4 Toilet Transfer (QC): 4 Car Transfer (QC): 4 (simulated) Gait Does the Patient Walk?: Yes Mode of Locomotion: Walk Anticipated Mode of Locomotion: Walk Walk 10 feet (QC): 4 Walk 50 ft with 2 Turns(QC): 4 Walk 150 ft (QC): 4 Walking 10ft/uneven surface-QC: 4 Distance: 500' Gait Assistive Device: FWW Comments/Gait Description SBA for safety/no deviation on this date Wheelchair Training Wheel 50 ft with 2 turns (QC): 9 Wheel 150 ft (QC): 9 Stairs #of Steps: 4 1 Step (curb) (QC): 4 4 Steps (QC): 4 12 Steps (QC): 9 Balance Sitting Static: Normal Sitting Dynamic: Normal Standing Static: Fair Standing Dynamic: Fair Picking up an Object (QC): 88 Treatment Gait and stair training with SBA for safety Assessment/Needs Patient will be seen short term by skilled PT to address functional strength and mobility to improve current LOF. to safely return to home with spouse at maximum LOF. Rehab Potential: Fair PT Oyster Farmer Goals Oyster Farmer Goals PT Oyster Farmer Goals Time Frame: Apr 01, 2022 Roll Left & Right (QC): 6 Sit to Lying (QC): 6 Lying-Sitting on Side/Bed(QC): 6 Sit to Stand (QC): 6 Chair/Fzw-uo-Jjins Xfer(QC): 6 Toilet Transfer (QC): 6 Car Transfer (QC): 6 Does the Patient Walk: Yes Walk 10 feet (QC): 6 Walk 50ft with 2 Turns (QC): 6 Walk 150 ft (QC): 6 Walking 10ft on Uneven Surface: 6 1 Step (curb) (QC): 4 4 Steps (QC): 4 12 Steps (QC): 9 Picking up an Object (QC): 6 Wheel 50 feet with 2 turns (QC: 9 Wheel 150 feet: 9 PT Plan Problem List Problem List: Activity Tolerance, Functional Strength, Safety, Balance, Gait, Transfer, Bed Mobility Treatment/Plan Treatment Plan: Continue Plan of Care Treatment Plan: Bed Mobility, Education, Functional Activity Myron, Functional Strength, Gait, Safety, Therapeutic Exercise, Transfers Treatment Duration: Apr 01, 2022 Frequency: 6 times per week Estimated Hrs Per Day: .25 hour per day Patient and/or Family Agrees t: Yes Time/GCodes Time In: 855 Time Out: 918 Total Billed Treatment Time: 23 Total Billed Treatment 1 visit EVModC 8 min FA 15 min DAYA ROCHA PT Mar 16, 2022 10:19
[2022-03-16] MEDS: ERYTHROMYCIN OPHTH OINT 1 GM (SINGLE USE) TUBE OP SCH ×3 (11:41→20:23)
--- NOTE | 2022-03-16 12:35 | Cardiology Progress Note ---
Progress Note-Cardiology Events since last exam Date Seen by Provider: Mar 16, 2022 Time Seen by Provider: 12:34 Events since last exam I am following her due to paroxysmal atrial fibrillation. She is now on swing bed status. Her telemetry was discontinued. She still has a cough with some yellowish sputum's. At times, this makes her feel short of breath and have a chest pain with the coughing. She denies palpitations, syncope, or ankle edema. Certain portions of this document may have been dictated utilizing voice recognition technology. Inherent to this technology, typographical and grammatical errors may exist. As much as I am diligent to identify and correct these mistakes, some errors may remain in the document. Vitals Last set of Vitals Signs Vital Signs 03/16/22 03/16/22 03/16/22 08:34 09:32 09:52 Temp 36.4 Pulse 74 Resp 18 B/P (MAP) 127/60 (82) Pulse Ox 96 O2 Delivery Nasal Cannula O2 Flow Rate 3.00 FiO2 28 Exam Vital Signs Vital Signs Date Time Temp Pulse Resp B/P (MAP) Pulse Ox O2 Delivery O2 Flow Rate FiO2 03/16/22 09:52 96 Nasal Cannula 3.00 03/16/22 09:32 36.4 74 18 127/60 (82) 03/16/22 08:34 28 Physical Exam General: Alert. No acute distress. Eye: No xanthelasma. HENT: Normocephalic. Neck: Jugular venous pressure does not appear elevated. Respiratory: Lungs have some scattered upper airway sounds. Respirations are non-labored. Breath sounds are equal. Symmetrical chest wall expansion. Cardiovascular: Normal rate. Regular rhythm. 2/6 systolic ejection murmur. No gallop. No edema. Gastrointestinal: Soft. Normal bowel sounds. Skin: Warm. Dry. Neurologic: Alert and oriented to person, place, time. Cranial nerves 3-11 grossly intact. Psychiatric: Cooperative. Appropriate mood & affect. Diagnosis/Problems Diagnosis/Problems (1) Paroxysmal atrial fibrillation Assessment & Plan: As far as we can tell, she had 1 brief episode of atrial fibrillation that has not recurred. I recommend she continue on beta-aristides. There is no strong indication for oral anticoagulation at this time since the atrial fibrillation may have been provoked by pneumonia. I will get her scheduled for an event recorder following discharge. (2) Abnormal electrocardiogram Assessment & Plan: She has a borderline abnormal electrocardiogram but without evidence of ischemia at rest. We may want to consider an outpatient ischemic evaluation following discharge. (3) Acquired hypothyroidism Assessment & Plan: Her TSH level was normal which suggests the thyroid disease did not have anything to do with the atrial fibrillation. (4) Hypokalemia Assessment & Plan: She had hypokalemia at the time of admission but this was corrected by the time she developed the atrial fibrillation. I suspect that the hypokalemia had nothing to do with the atrial fibrillation. YAKOV CATALAN JR, MD Mar 16, 2022 12:35
--- NOTE | 2022-03-16 14:02 | Occupational Therapy Eval ---
OT Evaluation-General/PLF Medical Diagnosis Admission Date Mar 16, 2022 at 08:48 Medical Diagnosis: pneumonia/debility Onset Date: Mar 13, 2022 Therapy Diagnosis Therapy Diagnosis: reduced adl status Height/Weight Height (Feet): 5 Height (Inches): 9.00 Weight (Pounds): 215 Weight (Ounces): 6.0 Precautions Precautions/Isolations: Fall Prevention, Standard Precautions Referral Physician: Eddie Referral Reason: Evaluation/Treatment Medical History Pertinent Medical History: Hypothroidism Additional Medical History breast cancer, PE, supplemental oxygen at night. Current History Pt presented to ER with c/o SOA, cough and a fever. Currently S/p bilateral eye lift on 03/09/22. Found to have hypokalemia Per patient, she lives in a single story home with her spouse. She was indep with adls and her spouse completes all the iadls. She was not using any AD at baseline. Reviewed History: Yes Social History Home: Single Level Current Living Status: Spouse Entry Into Home: Stairs With Railing Steps Into Home: 4 ADL-Prior Level of Function SCALE: Activities may be completed with or without assistive devices. 7-Zaucdjwgis-wzqbyka completes the activity by him/herself with no assistance from a helper. 5-Set-up or Clean-up Assistance-helper sets up or cleans up; patient completes activity. [place] assists only prior to or following the activity. 4-Supervision or Touching Assistance-helper provides verbal cues and/or touching/steadying and/or contact guard assistance as patient completes acti vity. Assistance may be provided throughout the activity or intermittently. 3-Partial/Moderate Assistance-helper does LESS THAN HALF the effort. [place] lifts, holds or supports trunk or limbs, but provides less than half the effort. 2-Substantial/Maximal Assistance-helper does MORE THAN HALF the effort. [place] lifts or holds trunk or limbs and provides more than half the effort. 6-Hremdpqlz-zgizhl does ALL the effort. Patient does none of the effort to complete the activity. Or, the assistance of 2 or more helpers is required for the patient to complete the activity. If activity was not attempted, code reason: 7-Patient Refused. 9-Not Applicable-not attempted and the patient did not perform the activity before the current illness, exacerbation or injury. 10-Not Attempted due to Environmental Limitations-(lack of equipment, weather restraints, etc.). 88-Not Attempted due to Medical Conditions or Safety Concerns. Self Care: Independent Functional Cognition: Unknown DME/Equipment: Bath Chair, Grab Bars, Shower Drive Self: No OT Current Status Subjective Pt confused, requires simplification and repetition of commands throughout ses wojciech. Pt often responds with "I don't know" when asked a question. Appearance Pt left sitting in recliner at OT departure, all needs within reach. Mental Status/Objective Patient Orientation: Person, Place Attachments: IV, Telemetry Current Glasses/Contacts: Yes Hand Dominance: Right Upper Extremity ROM bilateral shoulders: ~150 degrees Elbow-distally: WNL Upper Extremity Strength 3+/5 grossly ADL-Treatment Eating (QC): 5 Oral Hygiene (QC): 4 Shower/Bathe Self (QC): 7 Upper Body Dressing (QC): 4 Lower Body Dressing (QC): 3 On/Off Footwear (QC): 3 Toileting Hygiene (QC): 3 Supine>sit: SBA, extra time. Dressing tasks performed seated EOB. Extra time to identify correct orientation of both pants and top. Pt able to perform cross over method with LUE, yet required assistance to thread RLE secondary to f atigue/weakness. Min a to stand and maintain balance once upright. When removing BUE support from walker, pt immediately plopped back onto bed. Her quick response was "I meant to do that." She stood again and was cued to keep one hand on the walker as other managed clothing over hips. Steadying assist required. She ambulated ~5 feet towards chair with min a and walker. Slightly unsteady. Poor safety and eccentric control when lowering into chair. Mod a for safety. Pt verbalizes fatigue after minimal activity. Education OT Patient Education: Correct positioning, Energy conservation, Modified ADL techniques, Purpose of tx/functional activities, Rehab process, Safety issues, Transfer techniques Teaching Recipient: Patient Teaching Methods: Discussion Response to Teaching: Verbalize Understanding, Reinforcement Needed OT Short Term Goals Short Term Goals Time Frame: Mar 22, 2022 Eatin Oral hygiene: 5 Toileting hygiene: 4 Shower/bathe self: 4 Upper body dressin Lower body dressin Putting on/taking off footwear: 4 OT Mobile Mechanic Goals Mobile Mechanic Goals Time Frame: Mar 30, 2022 Eating (QC): 6 Oral Hygiene (QC): 6 Toileting Hygiene (QC): 6 Shower/Bathe Self (QC): 5 Upper Body Dressing (QC): 5 Lower Body Dressing (QC): 5 On/Off Footwear (QC): 5 1=Demonstrate adherence to instructed precautions during ADL tasks. 2=Patient will verbalize/demonstrate understanding of assistive devices/modifications for ADL. 3=Patient will improve strength/tolerance for activity to enable patient to perform ADL's. OT Education/Plan Problem List/Assessment Assessment: Decreased Activ Tolerance, Decreased Safety Aware, Decreased UE Strength, Impaired Cognition, Impaired Funct Balance, Impaired Self-Care Skills, Restricted Funct UE ROM Discharge Recommendations Plan/Recommendations: Continue POC Therapy Discharge Recommendati: Post Acute OT Treatment Plan/Plan of Care Treatment,Training & Education: Yes Patient would benefit from OT for education, treatment and training to promote independence in ADL's, mobility, safety and/or upper extremity function for ADL's. Plan of Care: ADL Retraining, Cognitive Retraining, Functional Mobility, Group Exercise/Act as Ind, UE Funct Exercise/Act Treatment Duration: Mar 30, 2022 Frequency: 5 times per week Estimated Hrs Per Day: .25 hour per day Agreement: Yes Rehab Potential: Fair Time/GCodes Start Time: 13:32 Stop Time: 13:57 Total Time Billed (hr/min): 25 Billed Treatment Time 1 visit EVM (10 min) ADL (15 min) Duyen Nguyen OT Mar 16, 2022 14:02
[2022-03-16 15:30] VITALS: BP 129/61
[2022-03-16] MEDS: RT-ALBUTEROL/IPRATROPIUM 3 ML (DUONEB) VIAL INH SCH ×2 (16:16→19:20)
[2022-03-16 17:21] VITALS: BP 127/58
[2022-03-16] MEDS: KCL 10 MEQ TAB (MICRO K) PO SCH (18:32)
[2022-03-16] MEDS: cefTRIAXone 1,000 MG VIAL IM SCH (18:33)
[2022-03-16] MEDS: LIDOCAINE 1% INJ 20 ML VIAL INJ SCH (18:33)
[2022-03-16] MEDS: LETROZOLE 2.5 MG (FEMARA) TAB PO SCH (20:23)
[2022-03-16] MEDS: ENOXAPARIN 40 MG/0.4 ML (LOVENOX) SYR SC SCH (20:24)
[2022-03-17] MEDS: RT-ALBUTEROL/IPRATROPIUM 3 ML (DUONEB) VIAL INH SCH ×3 (02:50→21:45)
[2022-03-17] MEDS: ERYTHROMYCIN OPHTH OINT 1 GM (SINGLE USE) TUBE OP SCH ×3 (05:56→21:08)
[2022-03-17] MEDS: LEVOTHYROXINE 75 MCG (LEVOTHROID) TABLET PO SCH (05:56)
--- NOTE | 2022-03-17 08:11 | Progress Note ---
Subjective Date Seen by a Provider: Mar 17, 2022 Time Seen by a Provider: 07:25 Subjective/Events-last exam 6-year-old female now on swing bed after recent admission for pneumonia as well as weakness. Her clinical condition improved as she was taking the ceftriaxone initially IV and then switched to IM. She is also receiving occupational therapy as well as physical therapy at this prior to dismissal to home to ensure no falls. Objective Exam Vital Signs Date Time Temp Pulse Resp B/P (MAP) Pulse Ox O2 Delivery O2 Flow Rate FiO2 03/17/22 07:29 Nasal Cannula 2.00 03/17/22 07:00 62 03/17/22 02:50 96 Nasal Cannula 2.00 03/17/22 01:00 70 03/16/22 20:59 Nasal Cannula 2.00 03/16/22 19:20 96 Nasal Cannula 2.00 03/16/22 19:00 72 03/16/22 17:21 36.4 72 18 127/58 (81) 96 Room Air 03/16/22 16:16 98 Nasal Cannula 3.00 03/16/22 15:30 36.0 67 17 129/61 (83) 95 Nasal Cannula 3.00 03/16/22 13:00 73 03/16/22 09:52 96 Nasal Cannula 3.00 03/16/22 09:32 36.4 74 18 127/60 (82) 94 Nasal Cannula 3.00 03/16/22 09:15 95 Nasal Cannula 3.00 03/16/22 08:34 36.9 78 97 28 I & O 03/17/22 07:00 Intake Total 1180 ml Output Total 450 ml Balance 730 ml Capillary Refill : General Appearance: No Apparent Distress (She is pleasant this morning) Neck: Supple Respiratory: Rales (In the bases); No Respiratory Distress Cardiovascular: Regular Rate, Rhythm Gastrointestinal: soft Extremity: Normal Capillary Refill Neurologic/Psychiatric: Alert, Oriented x3 Assessment/Plan Assessment/Plan Assess & Plan/Chief Complaint 1. Pneumonia bibasilar -Day #5 IM ceftriaxone 1 g as well as oral Zithromax 250 mg We will plan on repeat chest x-ray but this will probably be in 1 month or sooner if her condition should deteriorate 2. Weakness -Currently consulted OT and PT -Discharge to home when strength improved 3. Isolated atrial fibrillation with rapid ventricular response during hospitalization -Cardiology Dr. Voss placed her on metoprolol ER 25 mg daily and she appears to be doing well 4. Light disturbance abnormality -Corrected with replacement 5. Hypothyroidismstable on her current medications -Treatment with levothyroxine 6. Left breast cancer status post with mastectomy -Currently under treatment ZHENG SOLANO MD Mar 17, 2022 08:11
[2022-03-17 08:14] VITALS: BP 141/62
[2022-03-17] MEDS: CALCIUM CARBONATE 500 MG (TUMS) TAB.CHEW PO SCH ×2 (08:21→21:08)
[2022-03-17] MEDS: KCL 10 MEQ TAB (MICRO K) PO SCH ×2 (08:21→17:22)
[2022-03-17] MEDS: OMEGA 3 (FISH OIL) 1000 MG CAP PO SCH (08:21)
[2022-03-17] MEDS: BENZONATATE 100 MG (TESSALON) CAPSULE PO SCH ×3 (08:22→21:08)
[2022-03-17] MEDS: DOCUSATE SODIUM 100 MG (COLACE) CAP PO SCH ×2 (08:23→21:08)
[2022-03-17] MEDS: SENNOSIDES 8.6 MG (SENOKOT) TAB PO SCH ×2 (08:23→21:08)
--- NOTE | 2022-03-17 09:35 | Physical Therapy Daily Note ---
PT Daily Note-Current Subjective Patient initially declined PT, however, after much encouragement, patient agrees. Mental Status Patient Orientation: Person, Time, Situation Attachments: Oxygen (2L NC) Transfers SCALE: Activities may be completed with or without assistive devices. 5-Irlkhwunls-xfngsnc completes the activity by him/herself with no assistance from a helper. 5-Set-up or Clean-up Assistance-helper sets up or cleans up; patient completes activity. [place] assists only prior to or following the activity. 4-Supervision or Touching Assistance-helper provides verbal cues and/or touching/steadying and/or contact guard assistance as patient completes activity. Assistance may be provided throughout the activity or intermittently. 3-Partial/Moderate Assistance-helper does LESS THAN HALF the effort. [place] lifts, holds or supports trunk or limbs, but provides less than half the effort. 2-Substantial/Maximal Assistance-helper does MORE THAN HALF the effort. [place] lifts or holds trunk or limbs and provides more than half the effort. 9-Buvnxkvol-enudzd does ALL the effort. Patient does none of the effort to complete the activity. Or, the assistance of 2 or more helpers is required for the patient to complete the activity. If activity was not attempted, code reason: 7-Patient Refused. 9-Not Applicable-not attempted and the patient did not perform the activity before the current illness, exacerbation or injury. 10-Not Attempted due to Environmental Limitations-(lack of equipment, weather restraints, etc.). 88-Not Attempted due to Medical Conditions or Safety Concerns. Sit to Stand (QC): 4 Gait Training Does the Patient Walk?: Yes Distance: 500' Walk 10 feet (QC): 4 Walk 50 ft with 2 Turns(QC): 4 Walk 150 ft (QC): 4 Gait Assistive Device: FWW steady, functional gait sequence with no deviation Exercises Seated Therapy Exercises: Ankle pumps, Long arc quads, Hip flexion Seated Reps: 15 (x 2 sets) Assessment Patient remains up in recliner with needs met. Chair alarm activated. PT [facility] Goals Transcriber Goals PT Transcriber Goals Time Frame: Apr 01, 2022 Roll Left & Right (QC): 6 Sit to Lying (QC): 6 Lying-Sitting on Side/Bed(QC): 6 Sit to Stand (QC): 6 Chair/Pum-ei-Kiuah Xfer(QC): 6 Toilet Transfer (QC): 6 Car Transfer (QC): 6 Does the Patient Walk: Yes Walk 10 feet (QC): 6 Walk 50ft with 2 Turns (QC): 6 Walk 150 ft (QC): 6 Walking 10ft on Uneven Surface: 6 1 Step (curb) (QC): 4 4 Steps (QC): 4 12 Steps (QC): 9 Picking up an Object (QC): 6 Wheel 50 feet with 2 turns (QC: 9 Wheel 150 feet: 9 PT Plan Treatment/Plan Treatment Plan: Continue Plan of Care Treatment Plan: Bed Mobility, Education, Functional Activity Myron, Functional Strength, Gait, Safety, Therapeutic Exercise, Transfers Treatment Duration: Apr 01, 2022 Frequency: 6 times per week Estimated Hrs Per Day: .25 hour per day Patient and/or Family Agrees t: Yes Time/GCodes Time In: 832 Time Out: 847 Total Billed Treatment Time: 15 Total Billed Treatment 1 visit FA 15 min DAYA ROCHA PT Mar 17, 2022 09:35
--- NOTE | 2022-03-17 14:07 | Occupational Ther Daily Note ---
OT Current Status-Daily Note Subjective Pt sitting in recliner alert. Pt c/o lower back pain and vision troubles. Pt agrees to therapy. Mental Status/Objective Patient Orientation: Person, Place, Time, Situation Attachments: Oxygen, Telemetry ADL-Treatment Pt refusal to participate in ADL's. Pt refusal to participate in B UE strengthening exercises. Pt transferred from recliner to EOB, CGA. Pt EOB to supine independent. Pt sitting in bed call light/phone in reach. All needs met in room. Therapy Code Descriptions/Definitions Functional [place] Measure: 0=Not Assessed/NA 4=Minimal Assistance 1=Total Assistance 5=Supervision or Setup 2=Maximal Assistance 6=Modified Evans 3=Moderate Assistance 7=Complete IndependenceSCALE: Activities may be completed with or without assistive devices. 4-Tvvibpglhw-lvpcuuf completes the activity by him/herself with no assistance from a helper. 5-Set-up or Clean-up Assistance-helper sets up or cleans up; patient completes activity. [place] assists only prior to or following the activity. 4-Supervision or Touching Assistance-helper provides verbal cues and/or touching/steadying and/or contact guard assistance as patient completes activ ity. Assistance may be provided throughout the activity or intermittently. 3-Partial/Moderate Assistance-helper does LESS THAN HALF the effort. [place] lifts, holds or supports trunk or limbs, but provides less than half the effort. 2-Substantial/Maximal Assistance-helper does MORE THAN HALF the effort. [place] lifts or holds trunk or limbs and provides more than half the effort. 7-Oxddzwiok-onmgbz does ALL the effort. Patient does none of the effort to complete the activity. Or, the assistance of 2 or more helpers is required for the patient to complete the activity. If activity was not attempted, code reason: 7-Patient Refused. 9-Not Applicable-not attempted and the patient did not perform the activity before the current illness, exacerbation or injury. 10-Not Attempted due to Environmental Limitations-(lack of equipment, weather restraints, etc.). 88-Not Attempted due to Medical Conditions or Safety Concerns. OT Short Term Goals Short Term Goals Time Frame: Mar 22, 2022 Eatin Oral hygiene: 5 Toileting hygiene: 4 Shower/bathe self: 4 Upper body dressin Lower body dressin Putting on/taking off footwear: 4 OT Senior Living Goals Senior Living Goals Time Frame: Mar 30, 2022 Eating (QC): 6 Oral Hygiene (QC): 6 Toileting Hygiene (QC): 6 Shower/Bathe Self (QC): 5 Upper Body Dressing (QC): 5 Lower Body Dressing (QC): 5 On/Off Footwear (QC): 5 1=Demonstrate adherence to instructed precautions during ADL tasks. 2=Patient will verbalize/demonstrate understanding of assistive devices/modifi cations for ADL. 3=Patient will improve strength/tolerance for activity to enable patient to perform ADL's. OT Education/Plan Problem List/Assessment Assessment: Decreased Activ Tolerance, Decreased Safety Aware, Decreased UE Strength, Impaired Coordination Discharge Recommendations Plan/Recommendations: Continue POC Treatment Plan/Plan of Care Patient would benefit from OT for education, treatment and training to promote independence in ADL's, mobility, safety and/or upper extremity function for ADL's. Plan of Care: ADL Retraining, Cognitive Retraining, Functional Mobility, Group Exercise/Act as Ind, UE Funct Exercise/Act Treatment Duration: Mar 30, 2022 Frequency: 5 times per week Estimated Hrs Per Day: .25 hour per day Agreement: Yes Rehab Potential: Fair Time/GCodes Start Time: 13:26 Stop Time: 13:41 Total Time Billed (hr/min): 15 Billed Treatment Time 1 visit-FA 1 (15 min) JAZIEL GRISSOM Mar 17, 2022 14:07
[2022-03-17] MEDS: cefTRIAXone 1,000 MG VIAL IM SCH (17:23)
[2022-03-17] MEDS: LIDOCAINE 1% INJ 20 ML VIAL INJ SCH (17:23)
[2022-03-17 19:33] VITALS: BP 129/63
[2022-03-17] MEDS: LETROZOLE 2.5 MG (FEMARA) TAB PO SCH (21:08)
[2022-03-17] MEDS: ENOXAPARIN 40 MG/0.4 ML (LOVENOX) SYR SC SCH (21:09)
[2022-03-18] MEDS: RT-ALBUTEROL/IPRATROPIUM 3 ML (DUONEB) VIAL INH SCH ×4 (03:08→20:30)
[2022-03-18] MEDS: ERYTHROMYCIN OPHTH OINT 1 GM (SINGLE USE) TUBE OP SCH ×3 (05:23→20:58)
[2022-03-18] MEDS: LEVOTHYROXINE 75 MCG (LEVOTHROID) TABLET PO SCH (05:23)
[2022-03-18 07:35] VITALS: BP 118/56
[2022-03-18] MEDS: KCL 10 MEQ TAB (MICRO K) PO SCH ×2 (08:19→18:33)
[2022-03-18] MEDS: CALCIUM CARBONATE 500 MG (TUMS) TAB.CHEW PO SCH ×2 (08:19→20:58)
[2022-03-18] MEDS: OMEGA 3 (FISH OIL) 1000 MG CAP PO SCH (08:19)
[2022-03-18] MEDS: DOCUSATE SODIUM 100 MG (COLACE) CAP PO SCH ×2 (08:20→20:59)
[2022-03-18] MEDS: SENNOSIDES 8.6 MG (SENOKOT) TAB PO SCH ×2 (08:20→20:59)
[2022-03-18] MEDS: BENZONATATE 100 MG (TESSALON) CAPSULE PO SCH ×3 (08:20→20:58)
--- NOTE | 2022-03-18 08:43 | Physical Therapy Daily Note ---
PT Daily Note-Current Subjective Patient sitting in chair upon PT arrival, nurse in room, both agreeable to treatment. Patient rates pain at 0/10 currently. Mental Status Patient Orientation: Person, Place Attachments: Oxygen Transfers SCALE: Activities may be completed with or without assistive devices. 5-Tjlagwxnkr-vdpbbcx completes the activity by him/herself with no assistance from a helper. 5-Set-up or Clean-up Assistance-helper sets up or cleans up; patient completes activity. [place] assists only prior to or following the activity. 4-Supervision or Touching Assistance-helper provides verbal cues and/or touching/steadying and/or contact guard assistance as patient completes activity. Assistance may be provided throughout the activity or intermittently. 3-Partial/Moderate Assistance-helper does LESS THAN HALF the effort. [place] lifts, holds or supports trunk or limbs, but provides less than half the effort. 2-Substantial/Maximal Assistance-helper does MORE THAN HALF the effort. [place] lifts or holds trunk or limbs and provides more than half the effort. 4-Avwemtsbz-ddihac does ALL the effort. Patient does none of the effort to complete the activity. Or, the assistance of 2 or more helpers is required for the patient to complete the activity. If activity was not attempted, code reason: 7-Patient Refused. 9-Not Applicable-not attempted and the patient did not perform the activity before the current illness, exacerbation or injury. 10-Not Attempted due to Environmental Limitations-(lack of equipment, weather restraints, etc.). 88-Not Attempted due to Medical Conditions or Safety Concerns. Sit to Stand (QC): 4 Chair/Ifw-br-Rdqfs Xfer(QC): 4 Gait Training Does the Patient Walk?: Yes Distance: 250 feet Walk 10 feet (QC): 4 Walk 50 ft with 2 Turns(QC): 4 Walk 150 ft (QC): 4 Gait Assistive Device: FWW Assessment Current Status: Fair Progress Patient tolerated treatment well with no reports of increased pain, however some fatigue. Patient demonstrates difficulty initiating sit to stand and requires 3 attempts before being able to complete with CGA, reports that is baseline for her. Patient ambulates 250 feet with FWW, with SBA and verbal cues for safety, progression, balance and posture. Patient in chair post treatment with all needs met, nursing notified, call light in hand, and chair alarm activated. PT Air Launch Weapons Technician Goals Residential Goals PT Residential Goals Time Frame: Apr 01, 2022 Roll Left & Right (QC): 6 Sit to Lying (QC): 6 Lying-Sitting on Side/Bed(QC): 6 Sit to Stand (QC): 6 Chair/Aiq-af-Iakju Xfer(QC): 6 Toilet Transfer (QC): 6 Car Transfer (QC): 6 Does the Patient Walk: Yes Walk 10 feet (QC): 6 Walk 50ft with 2 Turns (QC): 6 Walk 150 ft (QC): 6 Walking 10ft on Uneven Surface: 6 1 Step (curb) (QC): 4 4 Steps (QC): 4 12 Steps (QC): 9 Picking up an Object (QC): 6 Wheel 50 feet with 2 turns (QC: 9 Wheel 150 feet: 9 PT Plan Treatment/Plan Treatment Plan: Continue Plan of Care Treatment Plan: Bed Mobility, Education, Functional Activity Myron, Functional Strength, Gait, Safety, Therapeutic Exercise, Transfers Treatment Duration: Apr 01, 2022 Frequency: 6 times per week Estimated Hrs Per Day: .25 hour per day Patient and/or Family Agrees t: Yes Safety Risks/Education Patient Education: Gait Training, Transfer Techniques Teaching Recipient: Patient Teaching Methods: Demonstration, Discussion Response to Teaching: Verbalize Understanding, Return Demonstration Time/GCodes Time In: 815 Time Out: 830 Total Billed Treatment Time: 15 Total Billed Treatment Visit, JARRELL Huddleston PT Mar 18, 2022 08:43
[2022-03-18 20:30] VITALS: BP 140/65
[2022-03-18] MEDS: LETROZOLE 2.5 MG (FEMARA) TAB PO SCH (20:58)
[2022-03-18] MEDS: ENOXAPARIN 40 MG/0.4 ML (LOVENOX) SYR SC SCH (20:58)
[2022-03-19] MEDS: RT-ALBUTEROL/IPRATROPIUM 3 ML (DUONEB) VIAL INH SCH ×2 (02:11→09:49)
[2022-03-19] MEDS: ERYTHROMYCIN OPHTH OINT 1 GM (SINGLE USE) TUBE OP SCH ×3 (05:22→20:49)
[2022-03-19] MEDS: LEVOTHYROXINE 75 MCG (LEVOTHROID) TABLET PO SCH (05:22)
[2022-03-19 07:18] VITALS: BP 126/58
--- NOTE | 2022-03-19 08:04 | Progress Note ---
Subjective Date Seen by a Provider: Mar 19, 2022 Time Seen by a Provider: 07:15 Subjective/Events-last exam overall feeling much better. She reports her strength has improved. Not too much cough. She does not report any cardiac symptoms as well. Objective Exam Vital Signs Date Time Temp Pulse Resp B/P (MAP) Pulse Ox O2 Delivery O2 Flow Rate FiO2 03/19/22 07:42 Nasal Cannula 2.00 03/19/22 07:18 36.7 67 20 126/58 (80) 95 Nasal Cannula 2.00 03/19/22 01:00 62 03/18/22 20:58 Nasal Cannula 2.00 03/18/22 20:33 72 Nasal Cannula 2.00 03/18/22 20:30 37.1 72 18 140/65 (90) 92 Nasal Cannula 2.00 03/18/22 19:00 70 03/18/22 14:34 92 Nasal Cannula 2.00 03/18/22 12:23 67 03/18/22 10:11 92 Nasal Cannula 2.00 I & O 03/19/22 07:00 Intake Total 1330 ml Output Total 801 ml Balance 529 ml Capillary Refill : General Appearance: No Apparent Distress Neck: Supple Respiratory: Rales (faint in the bases); No Respiratory Distress Cardiovascular: Regular Rate, Rhythm Assessment/Plan Assessment/Plan Assess & Plan/Chief Complaint 1. Pneumonia bibasilar -Day #5 IM ceftriaxone 1 g as well as oral Zithromax 250 mg We will plan on repeat chest x-ray but this will probably be in 1 month or sooner if her condition should deteriorate 03/19 -Ceftriaxone discontinued yesterday. -she will be started on generic Omnicef 300 mg twice daily 2. Weakness -Currently consulted OT and PT -Discharge to home when strength improved 03/19 -strength is improving, most likely discharge to home tomorrow 3. Isolated atrial fibrillation with rapid ventricular response during hospitalization -Cardiology Dr. Voss placed her on metoprolol ER 25 mg daily and she appears to be doing well 4. Light disturbance abnormality -Corrected with replacement 5. Hypothyroidismstable on her current medications -Treatment with levothyroxine 6. Left breast cancer status post with mastectomy -Currently under treatment ZHENG SOLANO MD Mar 19, 2022 08:04
[2022-03-19] MEDS: CALCIUM CARBONATE 500 MG (TUMS) TAB.CHEW PO SCH ×2 (10:08→20:43)
[2022-03-19] MEDS: OMEGA 3 (FISH OIL) 1000 MG CAP PO SCH (10:08)
[2022-03-19] MEDS: BENZONATATE 100 MG (TESSALON) CAPSULE PO SCH ×3 (10:08→20:44)
[2022-03-19] MEDS: SENNOSIDES 8.6 MG (SENOKOT) TAB PO SCH ×2 (10:08→20:50)
[2022-03-19] MEDS: CEFDINIR 300 MG (OMNICEF) CAP PO SCH ×2 (10:08→20:48)
[2022-03-19] MEDS: DOCUSATE SODIUM 100 MG (COLACE) CAP PO SCH ×2 (10:09→20:49)
[2022-03-19] MEDS: KCL 10 MEQ TAB (MICRO K) PO SCH ×2 (10:09→18:48)
[2022-03-19] MEDS: ENOXAPARIN 40 MG/0.4 ML (LOVENOX) SYR SC SCH (20:44)
[2022-03-19] MEDS: LETROZOLE 2.5 MG (FEMARA) TAB PO SCH (20:48)
[2022-03-19 21:55] VITALS: BP 128/60
[2022-03-20] MEDS: LEVOTHYROXINE 75 MCG (LEVOTHROID) TABLET PO SCH (06:45)
[2022-03-20] MEDS: ERYTHROMYCIN OPHTH OINT 1 GM (SINGLE USE) TUBE OP SCH ×2 (06:45→14:40)
[2022-03-20 07:52] VITALS: BP 133/78
[2022-03-20] MEDS ORDERED: BENZ100C18 PO (08:23)
[2022-03-20] MEDS ORDERED: MTP25TSR PO (08:23)
[2022-03-20] MEDS ORDERED: CEFD300C3 PO (08:23)
--- NOTE | 2022-03-20 08:25 | Discharge Inst-Simple/Standard ---
Discharge Inst-Standard Reconcile Patient Problems Problems Reviewed?: Yes Discharge Medications New, Converted or Re-Newed RX: Transmitted to Pharmacy ([facility]) Patient Instructions/Follow Up Plan of Care/Instructions/FU: Dr Morgan within the week. Dr Voss as per his office Activity as Tolerated: Yes Discharge Diet: Low Sodium Diet Return to [facility]: Fever returns, Worsening cough ZHENG MORGAN MD Mar 20, 2022 08:25
--- NOTE | 2022-03-20 08:27 | Discharge Summary ---
Diagnosis/Chief Complaint Date of Admission Mar 16, 2022 at 08:48 Date of Discharge Discharge Date: Mar 20, 2022 Discharge Time: 1600 Admission Diagnosis Admission Diagnosis 1. Pneumonia bibasilar 2. Weakness 3. Isolated atrial fibrillation with rapid ventricular response during hospitalization 4. Light disturbance abnormality 5. Hypothyroidismstable on her current medications 6. Left breast cancer status post with mastectomy Discharge Diagnosis 1. Pneumonia bibasilar 2. Weakness 3. Isolated atrial fibrillation with rapid ventricular response during hospitalization 4. Light disturbance abnormality 5. Hypothyroidismstable on her current medications 6. Left breast cancer status post with mastectomy Reason Hospital Visit 72-year-old female who is admitted to swing bed service for further care of pneumonia as well as her ongoing weakness. Patient had been diagnosed with bilateral basilar pneumonia and was on Rocephin as well as oral Zithromax. She was moved to swing bed on March 16, 2022. She also was undergoing physical therapy as well as occupational therapy and this will be continued on swing bed as well. She is currently not running a fever but still has an occasional cough. Discharge Summary Hospital Course Hospital Course 1. Pneumonia bibasilar -Day #5 IM ceftriaxone 1 g as well as oral Zithromax 250 mg We will plan on repeat chest x-ray but this will probably be in 1 month or sooner if her condition should deteriorate 03/19 -Ceftriaxone discontinued yesterday. -she will be started on generic Omnicef 300 mg twice daily 2. Weakness -Currently consulted OT and PT -Discharge to home when strength improved 03/19 -strength is improving, most likely discharge to home tomorrow 3. Isolated atrial fibrillation with rapid ventricular response during hospitalization -Cardiology Dr. Voss placed her on metoprolol ER 25 mg daily and she appears to be doing well 4. Light disturbance abnormality -Corrected with replacement 5. Hypothyroidismstable on her current medications -Treatment with levothyroxine 6. Left breast cancer status post with mastectomy -Currently under treatment Procedures None. Consultations PT OT Discharge Physical Examination Allergies: Uncoded Allergies: TAPE (Allergy, Severe, BLISTERS, 01/06/19) Vitals & I&Os Vital Signs Date Time Temp Pulse Resp B/P (MAP) Pulse Ox O2 Delivery O2 Flow Rate FiO2 03/20/22 07:52 36.7 62 19 133/78 (96) 96 Nasal Cannula 2.00 03/19/22 09:49 28 General Appearance: Alert, No Acute Distress Respiratory: Clear to Auscultation (in apical region and faint rales in bases) Cardiovascular: Regular Rate (with rate controlled) Abdominal: Soft Psych/Mental Status: Mental Status NL Discharge Home Medications Reviewed and agree with Discharge Medication list on patient's Discharge Instruction sheet Instructions to Patient/Family Please see electronic discharge instructions given to patient. ZHENG SOLANO MD Mar 20, 2022 08:27
--- NOTE | 2022-03-20 08:35 | Cardiology Progress Note ---
Progress Note-Cardiology Events since last exam Date Seen by Provider: Mar 20, 2022 Time Seen by Provider: 08:34 Events since last exam I am following her due to atrial fibrillation. She is post to be discharged this afternoon around 4 PM. She feels like her breathing is back to her normal. She climbed some stairs with assistance today. She denies chest pain, palpitations, syncope, or ankle edema. Certain portions of this document may have been dictated utilizing voice recognition technology. Inherent to this technology, typographical and g rammatical errors may exist. As much as I am diligent to identify and correct these mistakes, some errors may remain in the document. Vitals Last set of Vitals Signs Vital Signs 03/19/22 03/20/22 09:49 07:52 Temp 36.7 Pulse 62 Resp 19 B/P (MAP) 133/78 (96) Pulse Ox 96 O2 Delivery Nasal Cannula O2 Flow Rate 2.00 FiO2 28 Exam Vital Signs Vital Signs Date Time Temp Pulse Resp B/P (MAP) Pulse Ox O2 Delivery O2 Flow Rate FiO2 03/20/22 07:52 36.7 62 19 133/78 (96) 96 Nasal Cannula 2.00 03/19/22 09:49 28 Physical Exam General: Alert. No acute distress. Eye: No xanthelasma. HENT: Normocephalic. Neck: Jugular venous pressure does not appear elevated. Respiratory: Lungs have some scattered upper airway sounds and wheezing. Respirations are non-labored. Breath sounds are equal. Symmetrical chest wall expansion. Cardiovascular: Normal rate. Regular rhythm. No murmur. No gallop. No edema. Gastrointestinal: Soft. Normal bowel sounds. Skin: Warm. Dry. Neurologic: Alert and oriented to person, place, time. Cranial nerves 3-11 grossly intact. Psychiatric: Cooperative. Appropriate mood & affect. Diagnosis/Problems Diagnosis/Problems (1) Paroxysmal atrial fibrillation Assessment & Plan: As far as we can tell, she had 1 brief episode of atrial fibrillation that has not recurred. I recommend she continue on beta-aristides. There is no strong indication for oral anticoagulation at this time since the atrial fibrillation may have been provoked by pneumonia. I will get her scheduled for an event recorder following discharge. I had planned to get the monitor for her today but she will be leaving after the staff and cardiology leaves for the day. I will get this arranged as an outpatient. (2) Abnormal electrocardiogram Assessment & Plan: She has a borderline abnormal electrocardiogram but without evidence of ischemia at rest. We may want to consider an outpatient ischemic evaluation following discharge. (3) Acquired hypothyroidism Assessment & Plan: Her TSH level was normal which suggests the thyroid disease did not have anything to do with the atrial fibrillation. (4) Hypokalemia Assessment & Plan: She had hypokalemia at the time of admission but this was corrected by the time she developed the atrial fibrillation. I suspect that the hypokalemia had nothing to do with the atrial fibrillation. YAKOV CATALAN JR, MD Mar 20, 2022 08:35
[2022-03-20] MEDS: CALCIUM CARBONATE 500 MG (TUMS) TAB.CHEW PO SCH (08:59)
[2022-03-20] MEDS: CEFDINIR 300 MG (OMNICEF) CAP PO SCH (09:00)
[2022-03-20] MEDS: OMEGA 3 (FISH OIL) 1000 MG CAP PO SCH (09:00)
[2022-03-20] MEDS: SENNOSIDES 8.6 MG (SENOKOT) TAB PO SCH (09:00)
[2022-03-20] MEDS: DOCUSATE SODIUM 100 MG (COLACE) CAP PO SCH (09:00)
[2022-03-20] MEDS: KCL 10 MEQ TAB (MICRO K) PO SCH (09:00)
[2022-03-20] MEDS: BENZONATATE 100 MG (TESSALON) CAPSULE PO SCH ×2 (09:00→12:45)
--- NOTE | 2022-03-20 09:42 | Physical Therapy Daily Note ---
PT Daily Note-Current Subjective Patient reports she is very excited to go home today. Mental Status Patient Orientation: Person, Time, Situation Attachments: Oxygen Transfers SCALE: Activities may be completed with or without assistive devices. 5-Tteoaulbwz-ltjwdhu completes the activity by him/herself with no assistance from a helper. 5-Set-up or Clean-up Assistance-helper sets up or cleans up; patient completes activity. [place] assists only prior to or following the activity. 4-Supervision or Touching Assistance-helper provides verbal cues and/or touching/steadying and/or contact guard assistance as patient completes activity. Assistance may be provided throughout the activity or intermittently. 3-Partial/Moderate Assistance-helper does LESS THAN HALF the effort. [place] lifts, holds or supports trunk or limbs, but provides less than half the effort. 2-Substantial/Maximal Assistance-helper does MORE THAN HALF the effort. [place] lifts or holds trunk or limbs and provides more than half the effort. 0-Amlyydybd-osyiml does ALL the effort. Patient does none of the effort to complete the activity. Or, the assistance of 2 or more helpers is required for the patient to complete the activity. If activity was not attempted, code reason: 7-Patient Refused. 9-Not Applicable-not attempted and the patient did not perform the activity before the current illness, exacerbation or injury. 10-Not Attempted due to Environmental Limitations-(lack of equipment, weather restraints, etc.). 88-Not Attempted due to Medical Conditions or Safety Concerns. Roll Left & Right (QC): 6 Sit to Lying (QC): 6 Lying to Sitting/Side of Bed(Q: 6 Sit to Stand (QC): 4 Chair/Ckv-tw-Elrnh Xfer(QC): 4 Toilet Transfer (QC): 4 Car Transfer (QC): 6 Gait Training Distance: 300' Walk 10 feet (QC): 4 Walk 50 ft with 2 Turns(QC): 4 Walk 150 ft (QC): 4 Walking 10ft/uneven surface-QC: 4 Gait Assistive Device: FWW safe and functional with no deviation Stair Training Stair Training: Handrails/: 2 handrails #of Steps: 12 1 Step (curb) (QC): 4 4 Steps (QC): 4 12 Steps (QC): 4 Stairs: Pattern: Step to Balance Picking up an Object (QC): 6 Assessment Patient much improved with gross motor skills. Patient to dismiss to home on this date with spouse. Patient has been addressing all functional goals. Refer to LTG's for details on goals attained. PT Senior Living Goals Senior Living Goals PT Display Director Goals Time Frame: Apr 01, 2022 Roll Left & Right (QC): 6 (met 03/20/22) Sit to Lying (QC): 6 (met 03/20/22) Lying-Sitting on Side/Bed(QC): 6 (met 03/20/22) Sit to Stand (QC): 6 Chair/Sml-vj-Oluwz Xfer(QC): 6 Toilet Transfer (QC): 6 Car Transfer (QC): 6 (met 03/20/22) Does the Patient Walk: Yes Walk 10 feet (QC): 6 Walk 50ft with 2 Turns (QC): 6 Walk 150 ft (QC): 6 Walking 10ft on Uneven Surface: 6 1 Step (curb) (QC): 4 (met 03/20/22) 4 Steps (QC): 4 (met 03/20/22) 12 Steps (QC): 4 (met 03/20/22) Picking up an Object (QC): 6 Wheel 50 feet with 2 turns (QC: 9 Wheel 150 feet: 9 PT Plan Treatment/Plan Treatment Plan: Discontinue PT Treatment Plan: Bed Mobility, Education, Functional Activity Myron, Functional Strength, Gait, Safety, Therapeutic Exercise, Transfers Treatment Duration: Apr 01, 2022 Frequency: 6 times per week Estimated Hrs Per Day: .25 hour per day Patient and/or Family Agrees t: Yes Time/GCodes Time In: 810 Time Out: 825 Total Billed Treatment Time: 15 Total Billed Treatment 1 visit FA 15 min DAYA ROCHA PT Mar 20, 2022 09:42
--- NOTE | 2022-03-20 09:42 | Therapy Team Discharge Summary ---
Therapy Discharge Summary Discharge Recommendations Date of Discharge Physical Therapy Patient much improved with gross motor skills. Patient to dismiss to home on this date with spouse. Patient has been addressing all functional goals. Refer to LTG's for details on goals attained. Roll Left to Right (QC): 6 Sit to Lying (QC): 6 Lying to Sitting/Side of Bed(Q: 6 Sit to Stand (QC): 4 Chair/Kem-bm-Tzihp Xfer(QC): 4 Toilet Transfer (QC): 4 Car Transfer (QC): 6 Does the Patient Walk: Yes Mode of Locomotion: Walk Anticipated Mode of Locomotion: Walk Walk 10 feet (QC): 4 Walk 50 ft with 2 Turns(QC): 4 Walk 150 ft (QC): 4 Walking 10ft on uneven surface: 4 Distance: 300' Gait Assistive Device: FWW Wheel 50 ft with 2 turns (QC): 9 Wheel 150 ft (QC): 9 #of Steps: 12 1 Step (curb) (QC): 4 4 Steps (QC): 4 12 Steps (QC): 4 Balance Sitting Static: Normal Balance Sitting Dynamic: Normal Balance-Standing Static: Fair Picking up an Object (QC): 6 Occupational Therapy Decreased Activ Tolerance, Decreased Safety Aware, Decreased UE Strength, Impaired Coordination Eating (QC): 5 Oral Hygiene (QC): 4 Shower/Bathe Self (QC): 7 Upper Body Dressing (QC): 4 Lower Body Dressing (QC): 3 On/Off Footwear (QC): 3 Toileting Hygiene (QC): 3 PT Manual Plate Filler Goals Manual Plate Filler Goals PT Manual Plate Filler Goals Time Frame: Apr 01, 2022 Roll Left to Right (QC): 6 (met 03/20/22) Sit to Lying (QC): 6 (met 03/20/22) Lying-Sitting on Side/Bed(QC): 6 (met 03/20/22) Sit to Stand (QC): 6 Chair/Nte-gb-Sjvrh Xfer(QC): 6 Car Transfer (QC): 6 (met 03/20/22) Does the Patient Walk: Yes Walk 10 feet (QC): 6 Walk 10ft-Uneven Surface(QC): 6 Walk 50ft with 2 Turns (QC): 6 Walk 150 ft (QC): 6 Wheel 50 feet with 2 turns (QC: 9 1 Step (curb) (QC): 4 (met 03/20/22) 4 Steps (QC): 4 (met 03/20/22) 12 Steps (QC): 4 (met 03/20/22) Picking up an Object (QC): 6 OT Halfway Goals Manual Plate Filler Goals Time Frame: Mar 30, 2022 Eating (QC): 6 Oral Hygiene (QC): 6 Shower/Bathe Self (QC): 5 Upper Body Dressing (QC): 5 Lower Body Dressing (QC): 5 On/Off Footwear (QC): 5 Toileting Hygiene (QC): 6 Toilet/Commode Transfer (QC): 6 1=Demonstrate adherence to instructed precautions during ADL tasks. 2=Patient will verbalize/demonstrate understanding of assistive devices/modifications for ADL. 3=Patient will improve strength/tolerance for activity to enable patient to perform ADL's. DAYA ROCHA PT Mar 20, 2022 09:42
--- NOTE | 2022-03-20 14:40 | Occ Therapy Progress Note ---
Therapy Progress Note OT attempted treatment this afternoon. Pt declines OT services as she reports that she will be discharging home around 1400. Questions answered. Duyen Nguyen OT Mar 20, 2022 14:40
[2022-03-20 15:56] VITALS: BP 133/78
--- NOTE | 2022-03-21 14:24 | Therapy Team Discharge Summary ---
Therapy Discharge Summary Discharge Recommendations Date of Discharge Mar 20, 2022 at 15:58 Therapy D/C Recommendations: Occupational Therapy Home Care Physical Therapy Roll Left to Right (QC): 6 Sit to Lying (QC): 6 Lying to Sitting/Side of Bed(Q: 6 Sit to Stand (QC): 4 Chair/Lsb-iv-Catyj Xfer(QC): 4 Toilet Transfer (QC): 4 Car Transfer (QC): 6 Does the Patient Walk: Yes Mode of Locomotion: Walk Anticipated Mode of Locomotion: Walk Walk 10 feet (QC): 4 Walk 50 ft with 2 Turns(QC): 4 Walk 150 ft (QC): 4 Walking 10ft on uneven surface: 4 Distance: 300' Gait Assistive Device: FWW Wheel 50 ft with 2 turns (QC): 9 Wheel 150 ft (QC): 9 #of Steps: 12 1 Step (curb) (QC): 4 4 Steps (QC): 4 12 Steps (QC): 4 Balance Sitting Static: Normal Balance Sitting Dynamic: Normal Balance-Standing Static: Fair Picking up an Object (QC): 6 Occupational Therapy Pt admitted to [facility] status after recent admission for pneumonia as well as weakness. At time of evaluation, pt was mod a for toileting, footwear, lower body dressing, SBA for upper body dressing, oral care, and set up for eating. During her stay, OT focused on balance, endurance, strengthening, safety, problem solving, and energy conservation in order to improve performance and independence in adls and functional transfers. 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 See below for current levels of assist. Pt has now discharged from this facility and will be discharged from OT at this time. Decreased Activ Tolerance, Decreased Safety Aware, Decreased UE Strength, Impaired Coordination Eating (QC): 5 Oral Hygiene (QC): 4 Shower/Bathe Self (QC): 7 Upper Body Dressing (QC): 4 Lower Body Dressing (QC): 3 On/Off Footwear (QC): 3 Toileting Hygiene (QC): 3 PT Fire Prevention Captain Goals Fire Prevention Captain Goals PT Fire Prevention Captain Goals Time Frame: Apr 01, 2022 Roll Left to Right (QC): 6 (met 03/20/22) Sit to Lying (QC): 6 (met 03/20/22) Lying-Sitting on Side/Bed(QC): 6 (met 03/20/22) Sit to Stand (QC): 6 Chair/Tha-zu-Gklnq Xfer(QC): 6 Car Transfer (QC): 6 (met 03/20/22) Does the Patient Walk: Yes Walk 10 feet (QC): 6 Walk 10ft-Uneven Surface(QC): 6 Walk 50ft with 2 Turns (QC): 6 Walk 150 ft (QC): 6 Wheel 50 feet with 2 turns (QC: 9 1 Step (curb) (QC): 4 (met 03/20/22) 4 Steps (QC): 4 (met 03/20/22) 12 Steps (QC): 4 (met 03/20/22) Picking up an Object (QC): 6 OT Fire Prevention Captain Goals Fire Prevention Captain Goals Time Frame: Mar 30, 2022 Eating (QC): 6 (not met) Oral Hygiene (QC): 6 (not met) Shower/Bathe Self (QC): 5 (not met) Upper Body Dressing (QC): 5 (not met) Lower Body Dressing (QC): 5 (not met) On/Off Footwear (QC): 5 (not met) Toileting Hygiene (QC): 6 (not met) Toilet/Commode Transfer (QC): 6 (not met) 1=Demonstrate adherence to instructed precautions during ADL tasks. 2=Patient will verbalize/demonstrate understanding of assistive devices/modifications for ADL. 3=Patient will improve strength/tolerance for activity to enable patient to perform ADL's. Duyen Nguyen OT Mar 21, 2022 14:24
== END 2022-03-20 15:58 | disposition home or self-care (01) | DRG 195 ==
LOC: 4TH 08:48
PROVIDERS: ADMIT Family Medicine; ATTEND Family Medicine
DX: J18.9 Pneumonia, unspecified organism (principal); R53.1 Weakness; I48.0 Paroxysmal atrial fibrillation; R94.31 Abnormal electrocardiogram [ECG] [EKG]; E03.9 Hypothyroidism, unspecified; E87.6 Hypokalemia; Z79.890 Hormone replacement therapy; Z85.3 Personal history of malignant neoplasm of breast; Z90.12 Acquired absence of left breast and nipple; Z91.048 Other nonmedicinal substance allergy status; Z87.891 Personal history of nicotine dependence
CPT/HCPCS: 93005; 94640; 94760

== ENCOUNTER → 2022-04-13 | Outpatient (CLI) | payer MEDICARE ==
[~2022-04-13] VITALS: Ht 175 cm; Wt 86.0 kg
[~2022-04-13] MED LIST changes: -ACETAMINOPHEN 325 MG TABLET PO PRN; -ANTACID SUSP 30 ML UDC (MYLANTA) PO PRN; +BENZ100C18 PO; -BISACODYL 10 MG SUPP (DULCOLAX) PR PRN; +CATHETER FLUSH 10 ML SYR IVP PRN; +CEFD300C3 PO; -LACTULOSE SYRUP 10GM/15ML (ENULOSE) 30ML UDC PO PRN; -LIDOCAINE 1% INJ 20 ML VIAL INJ ONE; -LIDOCAINE 1% INJ 20 ML VIAL INJ SCH; -MELATONIN 3 MG TABLET PO PRN; -MILK OF MAGNESIA 400 MG/5 ML 30 ML UDC PO PRN; +MTP25TSR PO; -NALOXONE 0.4 MG/ML 1 ML (NARCAN) VIAL IV PRN; -ONDANSETRON 4 MG (ZOFRAN) ORAL DISSOLVE TAB PO PRN; -ONDANSETRON 4 MG/2 ML (SDV) Z0FRAN IV PRN; +REGADENOSON 0.4 MG/5 ML SYR (LEXISCAN) IV ONE; -RT-ALBUTEROL/IPRATROPIUM 3 ML (DUONEB) VIAL INH PRN; -cefTRIAXone 1,000 MG VIAL IM SCH; -diphenhydrAMINE 25 MG TAB (BENADRYL) PO PRN; -diphenhydrAMINE 50 MG/ML INJ (BENADRYL) IVP PRN; -guaiFENesin/CODEINE (ROBITUSSIN AC) 10ML UDC PO PRN; -polyethylene glycoL POWDER 17 GM (MIRALAX) PACK PO PRN
[2022-04-13 12:48] VITALS: BP 143/57
--- NOTE | 2022-04-14 10:18 | NUCLEAR STRESS TEST ---
REGADENOSON NUCLEAR STRESS Date of procedure: 04/13/2022. Primary care provider: Kj Morgan MD Admitting physician: Delgado Voss Jr., MD. INDICATION: Paroxysmal atrial fibrillation. BASELINE ELECTROCARDIOGRAM: Sinus rhythm with incomplete right bundle branch block. STRESS TEST PROCEDURE: The patient was administered 0.4 mg of intravenous Regadenoson. The resting heart rate was 72 bpm and the peak heart rate was 81 bpm. The resting blood pressure was 143/57 mmHg and the minimum blood pressure was 143/57 mmHg. This represents a normal heart rate and a blunted blood pressure response to Regadenoson. The test was stopped due to the protocol. There was no chest discomfort during the test. There were isolated premature ventricular complexes during the test. There were no significant stress induced electrocardiogram changes. NUCLEAR PROCEDURE: The patient was administered 10.9 mCi of intravenous technetium 99m Tetrofosmin at rest for the rest images. The patient was subseq uently administered 29.9 mCi of intravenous technetium 99m Tetrofosmin at peak stress for the stress images. Following an appropriate wait after each injection, imaging was obtained. The images were subsequently processed and reformatted in the usual views. Gated imaging was obtained. The image quality was adequate with a mild degree of gastrointestinal attenuation artifact. CT attenuation correction was used as a adjunct to standard imaging. Both the corrected and uncorrected images were reviewed for interpretation. NUCLEAR RESULTS: There was normal myocardial perfusion in all segments without evidence of infarction or ischemia. There was normal left ventricular chamber size with an end-diastolic volume of 55 mL and an end-systolic volume of 20 mL. There was no evidence of transient ischemic dilatation. The TID ratio was 1.1. There was normal wall motion in all segments with a calculated ejection fraction of 64%. IMPRESSION: 1. Normal heart rate and blood pressure response to regadenoson. 2. There was no chest discomfort or electrocardiogram changes during the test. 3. There were isolated premature ventricular complexes during the test. 4. There was normal myocardial perfusion in all segments without evidence of infarction or ischemia. 5. There was normal wall motion in all segments with a calculated ejection fraction of 64%. Certain portions of this document may have been dictated utilizing voice recognition technology. Inherent to this technology, typographical and grammatical errors may exist. As much as I am diligent to identify and correct these mistakes, some errors may remain in the document. DELGADO VOSS JR, MD Apr 14, 2022 10:18
== END ==
LOC: CARD 11:30
PROVIDERS: ATTEND Internal Medicine Cardiovascular Disease
DX: I48.0 Paroxysmal atrial fibrillation (principal)
CPT/HCPCS: 78452; 93017; A9502

== ENCOUNTER → 2022-09-28 | Outpatient (CLI) | payer MEDICARE ==
[~2022-09-28] MED LIST changes: -CATHETER FLUSH 10 ML SYR IVP PRN; -REGADENOSON 0.4 MG/5 ML SYR (LEXISCAN) IV ONE
--- NOTE | 2022-09-28 14:56 | Diagnostic Imaging Report ---
INDICATION: Right hip pain AP and oblique views of the right hip are obtained. No fracture or acute bony abnormality is seen. Joint spaces are unremarkable. IMPRESSION: Negative right hip. Dictated by: Dictated on workstation # [id number]
--- NOTE | 2022-09-28 16:30 | Diagnostic Imaging Report ---
INDICATION: Right knee pain. AP, oblique, and lateral views of the right knee are obtained. FINDINGS: No fracture or acute bony abnormality is seen. There is mild medial and lateral joint space narrowing. IMPRESSION: Mild degenerative changes of right knee with no acute abnormality. Dictated by: Dictated on workstation # [id number]
== END ==
LOC: RAD 11:22
PROVIDERS: ATTEND Family Medicine
DX: M17.11 Unilateral primary osteoarthritis, right knee (principal); M25.551 Pain in right hip
CPT/HCPCS: 73502; 73562

== ENCOUNTER → 2023-05-29 | Outpatient (CLI) | payer MEDICARE ==
--- NOTE | 2023-05-29 09:11 | Diagnostic Imaging Report ---
INDICATION: Postmenopausal state COMPARISON: 05/24/2021 FINDINGS: AP Spine L2-L4: [BMD (g/cm2): 1.015] [T-Score: -1.5] [Z-Score: -0.4] [BMD Previous: 0.969] [BMD % Change: 4.7*] LT Hip Neck: [BMD (g/cm2): 0.715] [T-Score: -2.3] [Z-Score: -0.8] LT Hip Total: [BMD (g/cm2):0.827] [T-Score:-1.4] [Z-Score: -0.2] [BMD Previous: 0.864] [BMD % Change: -4.3*] RT Hip Neck: [BMD (g/cm2):0.714] [T-Score:-2.3] [Z-Score:-0.8] RT Hip Total: [BMD (g/cm2):0.838] [T-score:-1.3] [Z-Score:-0.1] [BMD Previous:0.816] [BMD % Change:2.7] *Indicates significant change from prior examination based on 95% confidence level. World Health Organization criteria for BMD interpretation classify patients as Normal (T-score at or above -1.0), Osteopenic (T-score between -1.0 and -2.5) or Osteoporotic (T-score at or below -2.5). LIMITATIONS AND MODIFICATION: None. FRACTURE RISK (FRAX SCORE): The ten year probability of (%): Major Osteoporotic Fracture: [22.7] Hip Fracture: [6.2] IMPRESSION: 1. Osteopenia (Low bone mass). 2. Bone mineral density within the lumbar spine has significantly increased from the prior examination. Bone mineral density within the bilateral hips has not significantly changed. 3. See below National Osteoporosis Foundation guidelines on when to potentially initiate pharmacologic therapy. Based on the National Osteoporosis Foundation Guidelines, pharmacologic treatment should be initiated in any of the following, unless clinical conditions suggest otherwise: * Any patient with prior fragility fracture of the hip or vertebrae. A spine fracture indicates 5X risk for subsequent spine fracture and 2X risk for subsequent hip fracture. * Osteoporosis (T-score <-2.5). * Postmenopausal women and men age 50 and older with low bone mass/osteopenia (T-score between -1.0 and -2.5) by DXA and 10-year major osteoporotic fracture greater than 20% or a 10-year probability of hip fracture greater than 3%. These fracture risks are supplied above in the FRAX score, if applicable. * Clinician judgement and/or patient preferences may indicate treatment for people with 10-year fracture probabilities above or below these levels. Dictated by: Dictated on workstation # [id number]
== END ==
LOC: CANPRECLI → RAD 08:03
PROVIDERS: ATTEND Nurse Practitioner
DX: M85.80 Other specified disorders of bone density and structure, unspecified site (principal); Z78.0 Asymptomatic menopausal state
CPT/HCPCS: 77080

== ENCOUNTER → 2023-06-05 | Outpatient (CLI) | payer MEDICARE ==
[2023-06-05 09:25] LABS: POTASSIUM 4.4 MMOL/L (3.6-5.0)
[2023-06-05 09:26] LABS: ALBUMIN 4.1 GM/DL (3.2-4.5)
[2023-06-05 09:27] LABS: CALCIUM 9.3 MG/DL (8.5-10.1)
[2023-06-05 09:28] LABS: TOTAL PROTEIN 7.4 GM/DL (6.4-8.2)
[2023-06-05 09:30] LABS: BILIRUBIN,TOTAL 0.4 MG/DL (0.1-1.0)
[2023-06-05 09:32] LABS: CREATININE SERUM 0.84 MG/DL (0.60-1.30)
== END ==
LOC: LAB 08:58
PROVIDERS: ATTEND Internal Medicine Cardiovascular Disease
DX: I10 Essential (primary) hypertension (principal); I25.10 Atherosclerotic heart disease of native coronary artery without angina pectoris; I65.23 Occlusion and stenosis of bilateral carotid arteries; I47.19 Other supraventricular tachycardia; E78.2 Mixed hyperlipidemia
CPT/HCPCS: 36415; 80053; 80061